=== PATIENT | female | born 1975 | race Caucasian/White ===

== ENCOUNTER 2024-09-15 23:29 | Emergency (ER) | payer MEDICARE, BC, SELFPAY ==
--- NOTE | ~2024-09-15 | CT_ITS ---
CT of the Abdomen and Pelvis: Indication: Umbilical hernia pain Technique: 2.5 mm axial scans were obtained through the abdomen and pelvis following intravenous adm inistration of 100 cc of Omnipaque 350. Dose reduction technique was used on this scan by utilizing a utomated exposure control and iterative reconstruction technique. The dose-length product (DLP) was 1 374.43 mGy-cm. COMPARISON: 06/03/2016 Findings: Scans through the lung bases are unremarkable. 3.5 cm hypodense lesion present in the posterior hepatic lobe, indeterminate, but relatively stable i n size since prior exam. The spleen, pancreas, gallbladder, adrenals and kidneys are within normal li mits. There are atherosclerotic calcifications of the aorta. No lymphadenopathy. No bowel obstruction or bowel wall thickening. There is no evidence to suggest acute appendicitis. Sm all fat-containing umbilical hernia noted. Images through the pelvis were performed. Urinary bladder unremarkable. No pelvic mass seen. Status p ost hysterectomy. No ascites. Impression: 3.5 cm hepatic lesion. Relative stability since 2015 is compatible with benign lesion, possibly heman gioma.. Small fat-containing umbilical hernia. Reviewed, dictated and finalized at location M. Impression: 3.5 cm hepatic lesion. Relative stability since 2015 is compatible with benign lesion, possibly hemangioma.. Small fat-containing umbilical hernia.
[2024-09-15 23:29] VITALS: BP 115/58; PULSE 99; RESP 17; TEMP 36.5; O2SAT 95
--- OUTSIDE RECORDS SUMMARY | 2024-09-15 23:29 | XMS_ITS | Encounter Summary ---
Author Organization [facility] [employer] [facility] [email or web address] [facility] Address [address] [place] [address] Phone Care Team Providers Care Nursing Home Admissions Director Name Role Phone Devika Cummins MD Primary Care Provider [phone] Encounter Details Date Type Department Care Team (Late st Contact Info) Description 04/24/2021 Office Communication [employer] [email or web address] [address] [address] Ben Resendiz DO [address] [place] [phone] Social History Tobacco Use Types Packs/Day Years Used Date Smoking Tobacco: Every Day Cigarettes Smokeless Tobacco: Never Alcohol Use Standard Drinks/Week Comments Never 0 (1 standard drink = 0.6 oz pur e alcohol) Comments Unknown Sex and Gender Information Value Date Recorded Sex Assigned at Not on file Legal Sex Female 10:32 AM EDT Gender Identity Not on file Sexual Orientation Not on file COVID-19 Exposure Response Date Recorded In the last month, have you been in contact with someone who was confirmed or suspected to have Coronavirus / COVID-19? No / Unsure 04/02/2021 1:45 PM EDT documented as of this encounter Miscellaneous Notes * Telephone Encounter - Anni Vasquez CMA - 04/24/2021 2:13 PM CST ok * Telephone Encounter - Ben Resendiz DO - 04/24/2021 2:09 PM CST I will discuss results at the appointment * Telephone Encounter - Anni Vasquez CMA - 04/24/2021 12:17 PM CERTIFIED MEDICAL TECHNICIAN Please call pt about Ultrasound results are in media * Telephone Encounter - Brittany Sanders - 04/24/2021 11:25 AM CST pT called and asked if someone could call her and give her a update about her ultrasound. documented in this encounter Plan of Treatment Upcoming Encounters Date Type Department Care Team (Late st Contact Info) Description 11/01/2024 1:30 PM CDT Office Visit [facility], [facility] [address] [facility] [address] [place] [address] Ben Resendiz DO [address] [address] documented as of this encounter Visit Diagnoses Not on filedocumented in this encounter Care Teams Nursing Home Admissions Director Relationship Specialty Start Date End Date Devika Cummins MD [address] [place] [phone] PCP - General Family Medicine 07/26/24 documented as of this encounter
--- OUTSIDE RECORDS SUMMARY | 2024-09-15 23:29 | XMS_ITS | Clinical Summary ---
Author Organization [facility] Address [facility] [place] [address] Care Team Providers Care Graphic Engineer Name Role Phone Devika Cummins MD Primary Care Provider [phone] Social History Tobacco Use Types Packs/Day Years Used Date Smoking Tobacco: Never Assessed Comments Unknown Sex and Gender Information Value Date Recorded Sex Assigned at Not on file Legal Sex Female 12:31 PM CDT Gender Identity Not on file Sexual Orientation Not on file Plan of Treatment Upcoming Encounters Date Type Department Care Team (Late st Contact Info) Description 10/18/2024 11:00 AM CDT Office Visit [facility] Multispecialty Care - [facility] [address] [facility], [address] [place] [address] Alejandro Paulino MD [address] [place] [address] Health Maintenance Due Date Last Done Comments Cervical Cancer Screening Pa p Smear (Age 30 to 64) Every 3 Years 1977 Colorectal Cancer Screening Colonoscopy (10 Years) 1977 Annual Physical 1980 Hepatitis C 1995 DTaP, Tdap and Td Vaccines ( 1 - Tdap) 1996 Hepatitis B Vaccines (1 of 3 - 19+ 3-dose series) 1996 Cervical Cancer Screening Pa p with HPV Testing (Age 30 to 64) Every 5 Years 2007 Cervical Cancer Screening with HPV 2007 Mammogram Screening 2017 COVID-19 Vaccine (2023-2 5 season) 2024 PHQ-2 (Physician [place]) 06/15/2024 Meningococcal B Vaccine Aged Out No l onger eligible based on patient's age to complete this topic Meningococcal Vaccine Aged Out No william josephine eligible based on patient's age to complete this topic Pneumococcal Vaccine: Pediat rics (0 to 5 Years) and At-Risk Patients (6 to 64 Years) Aged Out No longer eligible b ased on patient's age to complete this topic RSV Immunizations Under 20 Months Aged Out No longer eligible based on patient's age to complete this topic Insurance [facility] Care Teams Graphic Engineer Relationship Specialty Start Date End Date Devika Cummins MD [address] [place] [phone] PCP - General EMERGENCY MEDICINE 05/17/24
--- OUTSIDE RECORDS SUMMARY | 2024-09-15 23:29 | XMS_ITS | Clinical Summary ---
Author Organization [facility] Facility Address [address] [address] Care Team Providers Care Obstetrician And Gynaecologist Name Role Phone Devika Cummins MD Primary Care Provider [phone] Allergies Active Allergy Reactions Criticality Noted Date Comments Aspirin Hives,Swelling,Other (see comments) High 12/11/2016 Penicillins Hives,Itching Low 12/11/2016 Sore throat Medications * This document contains information received from the source organization and may not represent a complete record from that organization. dexamethasone (DECADRON) 1 MG tablet Take 1 tablet (1 mg total) by mouth Once for 1 dose Take night before labs are drawn. 1 tablet 2 Active losartan (COZAAR) 50 MG tablet Take 1 tablet (50 mg total) by mouth every night 90 tablet 1 5 Active chlorthalidone 25 MG tablet Take 0.5 tablets (12.5 mg total) by mouth 1 (one) time each day in the morning 45 tablet 1 5 Active chlorthalidone 25 MG tablet Take 0.5 tablets (12.5 mg total) by mouth 1 (one) time each day in the morning 45 tablet 1 4 08/25/19 25 Discontinu ed(Reorder (does not appear on AVS)) Encounters Date Type Department Care Team Description 08/24/2024 Refill [facility] [address] [place] [address] [address] [place] [address] Anni Vasquez CMA 07/26/2024 1:15 PM PLOW AND BORING MACHINE TENDER Office Visit [facility] [address] [place] [address] [address] [place] [address] Ben Resendiz DO Stage 3 chronic kidney disease, not otherwise specified (HCC) (Primary Dx); Persistent proteinuria; Other Ringsted's syndrome (HCC); Hypertensive chronic kidney disease; Type 2 diabetes mellitus with diabetic chronic kidney disease (HCC); Pure hypercholesterolemia , not otherwise specified; Idiopathic gout, not otherwise specified; H/O: anemia - iron deficient 07/26/2024 Refill [facility] [address] [facility] [address] [place] [phone] Anni Vasquez CMA from Last 3 Months Social History Tobacco Use Types Packs/Day Years [...] on file Sexual Orientation Not on file Last Filed Vital Signs Vital Sign Reading Time Taken Comments Blood Pressure 120/60 07/26/2024 2:00 PM PLOW AND BORING MACHINE TENDER Pulse 61 07/26/2024 2:00 PM PLOW AND BORING MACHINE TENDER Temperature 36.1 C (97 F) 07/26/2024 2:00 PM PLOW AND BORING MACHINE TENDER Respiratory Rate 18 07/26/2024 2:00 PM PLOW AND BORING MACHINE TENDER Oxygen Saturation 97% 07/26/2024 2:00 PM PLOW AND BORING MACHINE TENDER Inhaled Oxygen Concentration - - Weight 105 kg (231 lb 6.4 oz) 07/26/2024 2:00 PM PLOW AND BORING MACHINE TENDER Height 167.6 cm (5' 6 ) 06/18/2021 2:57 PM PLOW AND BORING MACHINE TENDER Body Mass Index 37.35 06/18/2021 2:57 PM PLOW AND BORING MACHINE TENDER Plan of Treatment Upcoming Encounters Date Type Department Care Team (Late st Contact Info) Description 11/01/2024 1:30 PM CDT Office Visit [facility] [address] [facility] [address] [place] [address] Ben Resendiz DO [address] [facility] [address] [place] [address] Health Maintenance Due Date Last Done Comments Pneumococcal Vaccine: Pediat rics (0 to 5 Years) and At-Risk Patients (6 to 64 Years) (1 of 2 - PCV) 1983 Hepatitis B Vaccine (1 of 3 - 19+ 3-dose series) 05/02 Diabetes: Hemoglobin A1C 11/08/2020 Diabetes: Ophthalmology Exam 11/08/2020 Diabetes: Pedal Pulse Checked 11/08/2020 Diabetes: Sensory Foot Exam 11/08/2020 Diabetes: Visual Foot Exam 11/08/2020 Influenza Vaccine (#1) 2024 Insurance MEDICAID [place] UHC MEDICARE Care Teams Obstetrician And Gynaecologist Relationship Specialty Start Date End Date Placido, Devika Parker MD [address] [place] [phone] PCP - General Family Medicine 07/26/24
--- OUTSIDE RECORDS SUMMARY | 2024-09-15 23:29 | XMS_ITS | CONTINUITY OF CARE DOCUMENT ---
Author Name zahraa vital Address Unknown Organization [facility] Address [address] [facility] [address] [place] [address] Phone [phone] Care Team Providers Care Die Press Operator Name Role Phone Mandeep VILLANUEVA, Maria Luisa Unavailable HOPMARGO BENNETT Unavailable [phone] HOPMARGO BNENETT Unavailable [phone] PROBLEMS Condition Status Date Provider Notes HTN essential active Maria Luisa Kaufman MD Diabetes mellitus active Maria Luisa Kaufman MD Morbid obesity active Maria Luisa Kaufman MD Hyperlipidemia active Maria Luisa Kaufman MD Preoperative cardiovascular examination for bariatriac surgery active Maria Luisa Kaufman MD GERD active Maria Luisa Kaufman MD Smoker active Maria Luisa Kaufman MD Bipolar disorder active Maria Luisa Kaufman MD Sleep apnea active Maria Luisa Kaufman MD PAC's active Yuli Kirby PVC's active Yuli Kirby Wheezing active Yuli Kirby Palpitations active Yuli Kirby Shortness of breath active Yuli Kirby SVT active Yuli Kirby ENCOUNTERS Date Type Provider Location Encounter Diag nosis 3 - 7 In-person encounter Office Visit Devyn Garza MD [facility] 4 - 4 In-person encounter Office Visit Devyn Garza MD [facility] PAC'sPVC'sWheezingPalpitationsShortne ss of breathSVT 7 - 7 In-person encounter Office Visit Maria Luisa Kaufman MD [facility] HTN essentialDiabetes mellitusMorbid obesityHyperlipidemiaPreoperative cardiovascular examination for bariatriac surgeryGERDSmokerBipolar disorderSleep apnea VITAL SIGNS Date Observation Value Provider Body Mass Index (Ratio) 39.22 kg/m2 Taew on blood pressure, cuff size large Ke rri Gruenenfelder blood pressure, diastolic 80 mm[Hg] [facility], systolic 138 mm[Hg] Zabrina ri [facility] oxygen saturation, oximetry 93 % Suri [facility] respiratory rate E&M 16 /min Suri Leslie [facility] pulse rate 96 /min Suri Kalyanitor er weight E&M 243 [lb_av] Suri Evelynnenfe lder height E&M 66 [in_i] Suri Grnathennenfe lder Body Mass Index (Ratio) 40.51 kg/m2 Taew on blood pressure, resting No Dany ty [place] blood pressure, cuff size regular Kr isty Christa blood pressure, diastolic 80 mm[Hg] Kr isty [place] blood pressure, systolic 130 mm[Hg] Kri sty Christa pulse rate 104 /min Shantell [place] oxygen saturation, oximetry 96 % Shantell Chrisat respiratory rate E&M 19 /min Shantell Christa height E&M 66 [in_i] Shantell Christa weight E&M 251 [lb_av] Shantell [place] Body Mass Index (Ratio) 41.10 kg/m2 Saran Kaufman MD respiratory rate E&M 16 /min [facility] blood pressure, resting Yes [facility] blood pressure, diastolic 100 mm[Hg] To [facility] blood pressure, systolic 168 mm[Hg] Ton [facility] oxygen saturation, oximetry 97 % [facility] pulse rate 85 /min [facility] weight E&M 247 [lb_av] [facility] height E&M 65 [in_i] [facility] ALLERGIES Allergy Name Onset Date Reaction Criticality Status PENICILLIN Low Criticality active ASPIRIN throat swelling throat swelling Low Criticality active HISTORY OF MEDICATION USE Medication Status Instructions Dates Provider Indications Com ments Cozaar 100 mg tablet active TAKE 1 TABLET BY MOUTH ONCE DAILY Allie Torrez NP atorvastatin 80 mg tablet active Take 1 tablet by mouth at bedtime Allie Torrez NP Zetia 10 mg tablet completed TAKE 1 TABLET BY MOUTH EVERY DAY - Allie Torrez NP ergocalciferol (vitamin D2) 1,250 mcg (50,000 unit) capsule active Take 1 capsule by mouth once a week Allie Torrez NP magnesium oxide 400 mg (241.3 mg magnesium) tablet active Take 1 tablet by mouth once a day Shantell Goodwin #30, 30 days supply, Prescribed by PERLA BONILLA, Filled 10/07/2020 FeroSul 325 mg (65 mg iron) tablet active Take 1 tablet by mouth twice a day Shantell Goodwin #60, 30 days supply, Prescribed by PERLA BONILLA, Filled 10/07/2020 cyclobenzaprine 10 mg tablet active Suri Quintero glipizide 5 mg tablet active Suri Quintero estradiol 2 mg tablet active Suri Quintero fluticasone propionate 50 mcg/actuation spray,suspension active Suri Quintero Singulair 10 mg tablet active Suri Quintero gabapentin 600 mg tablet active Suri Quintero pantoprazole 40 mg tablet,delayed release (DR/EC) active Suri Guardadodukeeddie allopurinol 100 mg tablet active Suri Augusteblakeeddie gemfibrozil 600 mg tablet active Suri Rivasdelorisrhona atorvastatin 10 mg tablet completed - Allie Torrez NP Latuda 60 mg tablet active Suri Guardadodukeeddie lamotrigine 200 mg tablet active Suri Guardadodukeeddie RANITIDINE 150 MAX STRENGTH 150 MG ORAL TABLET active Suri Guardadodukeeddie metformin 1,000 mg tablet active Suri Guardadodukeeddie glyburide 5 mg tablet active Suri Guardadodukeeddie SOCIAL HISTORY Date Observation Value Provider smoking/tobacco cess ation, patient education and counseling yes Suri Guardadomarvin smoking, date started 1988 Suri Guardadomarvin smoking history, tot al pack/year 365 Suri Dodgerhona smoking history, tot al pack/day 1 Suri Dodgerhona cigarette use yes Suri rodriguez smoking status Current every day smoker Otf napoles Leon number of grandchildren Devyn Kirby social history E&M S moking History: Brionna garcía currently smokes every day. P ricky has been counseled to quit. Yuli Kirby social history reviewed E&M revi ewed - no changes required Yuli Kirby smoking/tobacco cess ation, patient education and counseling yes Shantell Goodwin smoking, date started 1988 Shantell Christa smoking history, tot al pack/year 365 Shantell [place] smoking history, tot al pack/day 1 Shantell [place] cigarette use yes Shantell Goodwin smoking status Current every day smoker tOf Goodwin number of grandchildren Maria Luisa Kaufman MD T teodoro Kaufman MD social history E&M S moking History: Brionna garcía currently smokes every day. P ricky has been counseled to quit. Maria Luisa Kaufman MD smoking/tobacco cess ation, patient education and counseling yes Maria Luisa Kaufman MD social history reviewed E&M revi ewed - no changes required Maria Luisa Kaufman MD smoking history, tot al pack/year 365 [facility] smoking history, tot al pack/day 1 [facility] smoking, date started 1988 [facility] cigarette use yes [facility] smoking status Current every day smoker T [facility] FAMILY HISTORY Family Member Condition Mother Family History of Di abetes: Mother Family History of De pression: INSURANCE PROVIDERS Payer name Policy type / Coverage type [place] red green party ID UHC MEDICARE COMPLETE HMO Other [id number] [facility] Medicaid 1 [id number] ADVANCE DIRECTIVES Name Date DISCUSSED - NO DECISION MADE TREATMENT PLAN Date Name Performer [id number],W,per PCP; A1C 7.8% Allie Torrez NP [id number],S,T he Patient was reencouraged to stop smoking. Allie Torrez NP [id number],S,weight loss e ncouraged. Allie Torrez NP [id number],S,Losartan 100 mg daily Allie Torrez NP [id number],B, Allie nguyen NP [id number],S, T he following medications were removed from the medication list: Atorvastatin 10 Mg Tablet (Atorvastatin) Her updated medication list for this problem includes: Atorvastatin 80 Mg Tablet (Atorvastatin) ..... Take 1 tablet by mouth at bedtime Zetia 10 Mg Tablet (Ezetimibe) ..... Take 1 tablet by mouth every day Gemfibrozil 600 Mg Tablet (Gemfibrozil) Allie Torrez NP [id number],S,holter monito r unremarkable Allie Torrez NP Electrophysiology:per PCP; A1C 7 .8% Allie Torrez NP Electrophysiology:Th e Patient was reencouraged to stop smoking. Allie Torrez NP Electrophysiology:weight loss en couraged. Allie Torrez NP Electrophysiology:Losartan 100 m g daily Allie Torrez NP Electrophysiology Allie dixon GETTER WELDER Electrophysiology: T he following medications were removed from the medication list: Atorvastatin 10 Mg Tablet (Atorvastatin) Her updated medication list for this problem includes: Atorvastatin 80 Mg Tablet (Atorvastatin) ..... Take 1 tablet by mouth at bedtime Zetia 10 Mg Tablet (Ezetimibe) ..... Take 1 tablet by mouth every day Gemfibrozil 600 Mg Tablet (Gemfibrozil) Allie Torrez NP Electrophysiology:holter monitor unremarkable Allie Torrez NP Electrophysiology 14 : B P today: 130/80 P rior BP: 168/100 (07/11/2019) Yuli Kirby Electrophysiology 14 :SHE SHOULD NOT BE DOING ANY STRESS TEST UNTIL HER ANEMIA IS WORKED UP IT WOULD BE TOO DANGEROUS. Yuli Kirby Electrophysiology 14 : O rders: T obacco cessation counseling, 3-10minutes ([id number]) F VC - 40470 (54646) F RC - 49215 (13208) D LCO - 32700 (14246) Yuli Kirby Electrophysiology 14 :The patient is using CPAP on a regular basis. The patient has been benefiting from therapy and should continue use. Yuli Kirby Electrophysiology 14 : O rders: F VC - 00270 (86992) F RC - 06785 (65067) D LCO - 58128 (65119) Yuli Kirby Electrophysiology 14 : O rders: M onitor - Telemetry (Mobile Cardiac) (CPT-[id number]) Yuli Kirby Electrophysiology 14 : O rders: M onitor - Telemetry (Mobile Cardiac) (CPT-[id number]) Yuli Kofi Electrophysiology 14 : O rders: M onitor - Telemetry (Mobile Cardiac) (CPT-[id number]) Yuli Kirby Cardiology Maria Luisa Kaufman MD Cardiology Maria Luisa Kaufman MD Cardiology Maria Luisa Kaufman MD Cardiology Maria Luisa Kaufman MD Cardiology:Will obta in stress cardiolite before giving clearance for bariatric surgery. Maria Luisa Kaufman MD Cardiology Maria Luisa Kaufman MD Date Name LIPASE AMYLASE LIPID PANEL COMPREHENSIVE METABO LIC PANEL, W/EGFR Monitor - Telemetry (Mobile Cardiac) DLCO - 41831 FRC - 76407 FVC - 73444 Complete Echo Stress Exercise Card iolite HISTORY OF PROCEDURES Procedure Date Procedure Name Provider Procedure Notes S tatus EKG Devyn Garza MD comp leted Mobile Cardiac Telemetry - Tech Devyn Garza MD completed Mobile Cardiac Telemetry - Prof Devyn Garza MD completed EKG Devyn Garza MD comp leted Cardiolite, 2 units Maria Luisa Kaufman MD completed SPECT Images Maria Luisa Kaufman MD complet ed Stress EKG Maria Luisa Kaufman MD completed EKG Maria Luisa Kaufman MD completed
--- OUTSIDE RECORDS SUMMARY | 2024-09-15 23:29 | XMS_ITS | Clinical Summary ---
Author Organization [facility] Address [address] [place] [address] Care Team Providers Care Fruit Loader Name Role Phone Provider, Abstract Primary Care Provider Unavail able Allergies Active Allergy Reactions Criticality Noted Date Comments Aspirin Hives,Swelling High 11/20/2020 Penicillins Itching Low 11/20/2020 Sore throat Medications FeroSuL 325 mg (65 mg iron) tablet TAKE 1 TABLET BY MOUTH TWICE DAILY 1 Active cyclobenzaprine (FLEXERIL) 10 mg tablet Take by mouth. 0 Active gabapentin (NEURONTIN) 600 mg tablet Take by mouth. 0 Active gemfibroziL (LOPID) 600 mg tablet Take by mouth. 0 Active fluticasone propionate (FLONASE) 50 mcg/spray [facility], Suspension nasal inhaler Administer in each nostril. 0 Active estradioL (ESTRACE) 2 mg tablet Take by mouth. 0 Active allopurinoL (ZYLOPRIM) 100 mg tablet Take by mouth. 0 Active atorvastatin (LIPITOR) 10 mg tablet Take by mouth. 0 Active raNITIdine (ZANTAC) 150 mg tablet Take by mouth. 0 Active Active Problems Problem Noted Date Diagnosed Date Iron deficiency anemia 11/20/2020 Family History Medical History Relation Name Comments Cancer Father Diabetes Father Heart Disease Father Relation Name Status Comments Brother Alive Father Mother Alive Sister Alive Social History Tobacco Use Types Packs/Day Years Used Date Smoking Tobacco: Some Days Cigarettes Smokeless Tobacco: Never Comments:social smoker Alcohol Use Standard Drinks/Week Comments Never 0 (1 standard drink = 0.6 oz pur e alcohol) Comments Unknown Sex and Gender Information Value Date Recorded Sex Assigned at Not on file Legal Sex Female 1:52 PM CDT Gender Identity Not on file Sexual Orientation Not on file Last Filed Vital Signs Vital Sign Reading Time Taken Comments Blood Pressure 131/78 11/20/2020 1:08 PM CDT Pulse 91 11/20/2020 1:08 PM CDT Temperature 36.7 C (98.1 F) 11/20/2020 1:08 PM CDT Respiratory Rate - - Oxygen Saturation 96% 11/20/2020 1:08 PM CDT Inhaled Oxygen Concentration - - Weight 113 kg (249 lb 1.6 oz) 11/20/2020 1:08 PM CDT Height 167.6 cm (5' 6 ) 11/20/2020 1:08 PM CDT Body Mass Index 40.21 11/20/2020 1:08 PM CDT Plan of Treatment Health Maintenance Due Date Last Done Comments DIABETES ANNUAL FOOT EXAM 1995 DIABETES ANNUAL RETINAL EXAM 1995 DIABETES MICROALBUMIN ANNUAL SCREEN 1995 LDL CHOLESTEROL ANNUAL 1995 DTAP/TDAP/TD VACCINES (1 - Tdap) 1996 HEPATITIS B VACCINES (1 of 3 - 19+ 3-dose series) 1996 HPV/Cotest (21-29) 1998 PAP SMEAR 1998 CERVICAL CANCER SCREENING 2007 HPV/Cotest (30-65) 2007 PAP SMEAR 2007 DIABETES HBA1C Q 6 MONTHS 04/17/20222021, 08/02/2021, 05/14/2021, Additional history exists FIT-DNA Q 3 years 2022 FIT/FOBT Q 1 year 2022 Flex Sig/CT Colonography Q 5 years 2022 BREAST CANCER SCREENING 06/11/2022 06/11/20 21, 06/11/2021, 10/19/2017, Additional history exists INFLUENZA VACCINE (#1) 2024 COLORECTAL SCREENING 12/31/2030 12/31/2020, 03/22/20 19 Colorectal Cancer Screening 12/31/2030 Insurance MEDICAID [place] MEDICARE PART A AND B Care Teams Fruit Loader Relationship Specialty Start Date End Date Provider, Abstract NO ADDRESS ON FILE PCP - General 11/20/20
--- OUTSIDE RECORDS SUMMARY | 2024-09-15 23:30 | XMS_ITS | Clinical Summary ---
Author Organization [facility] [employer] Address [address] [place] [address] Care Team Providers Care Sand Screener Operator Name Role Phone Devika Cummins MD Primary Care Provider [phone] Source Comments [facility] [employer],non-owned Affiliates and Associated Physician Practices is amultiple site organization consisting of ambulatory clinics and hospital sitesin [place], [place], [place] and [place]. This disclosure is being madepursuant to the Care Everywhere program and may not contain all information available regarding this patient. Last updated 18.[facility] [employer] Allergies Active Allergy Reactions Criticality Noted Date Comments Aspirin 12/11/2016 Penicillins 12/11/2016 Medications * Be aware that medications may not be up to date on this document. Alwaysverify current medications with the patient. Medication Sig Dispensed Refills Start Date End Date Status sertraline (ZOLOFT) 100 MG tablet Take 100 mg by mouth once daily Active ESTRADIOL PO Active clonazePAM, disintegrating, 0.5 MG Active lurasidone (LATUDA) 60 MG tablet Take 60 mg by mouth daily with breakfast Active metFORMIN CR 24hr modified (GLUMETZA) 500 MG (MOD) tablet Take 500 mg by mouth daily with dinner Active raNITIdine (ZANTAC) 150 MG tablet Take 150 mg by mouth 2 times daily Active lamoTRIgine (LAMICTAL) 200 MG tablet Take 200 mg by mouth 2 times daily Active gabapentin PHN (GRALISE) 600 MG tablet Take 600 mg by mouth daily with dinner Active Active Problems No known active problems Encounters Date Type Department Care Team Description 08/24/2024 Travel from Last 3 Months Social History Tobacco Use Types Packs/Day Years Used Date Smoking Tobacco: Every Day Smokeless Tobacco: Never Sex and Gender Information Value Date Recorded Sex Assigned at Not on file Gender Identity Not on file Sexual Orientation Not on file Last Filed Vital Signs Vital Sign Reading Time Taken Comments Blood Pressure 126/74 12/11/2016 2:39 PM CDT Pulse 84 12/11/2016 2:39 PM CDT Temperature 37.1 C (98.7 F) 12/11/2016 2:39 PM CDT Respiratory Rate 18 12/11/2016 2:39 PM CDT Oxygen Saturation 94% 12/11/2016 2:39 PM CDT Inhaled Oxygen Concentration - - Weight 106.6 kg (235 lb) 12/11/2016 2:39 PM CDT Height 167.6 cm (5' 6 ) 12/11/2016 2:39 PM CDT Body Mass Index 37.93 12/11/2016 2:39 PM CDT Plan of Treatment Upcoming Encounters Date Type Department Care Team (Late st Contact Info) Description 12/05/2024 2:40 PM CDT Office Visit [facility] - Endocrinology [address] [place] [address], [place] [address] Sohail Blount MD [address] [place] [address] [place] [phone] Health Maintenance Due Date Last Done Comments COLOGUARD (AGES 45-75) - COL ON CA SCREENING 1977 COLON MONITORING 1977 COLONOSCOPY - COLON CA SCREENING 1977 CT COLONOGRAPHY - COLON CA SCREENING 1977 Colorectal Cancer Screening 1977 FIT - COLON CA SCREENING 1977 FLEX SIG - COLON CA SCREENING 1977 LIPID TESTING 1977 MAMMOGRAM 1977 PAP SMEAR 1977 HIV SCREENING 1992 HEPATITIS C SCREENING 04/28/1995 DTAP/TDAP/TD VACCINES (1 - Tdap) 1996 HEPATITIS B VACCINE (1 of 3 - 19+ 3-dose series) 1996 PNEUMOCOCCAL VACCINE (1 of 2 - PCV) 1996 COVID-19 VACCINE (2023-2 5 season) 2024 INFLUENZA VACCINE (#1) 2024 DEPRESSION SCREENING 06/15/2024 MEDICARE AWV CALENDAR YEAR 2024 ZOSTER VACCINE (1 of 2) 2027 HIB VACCINE Aged Out No longer eligi ble based on patient's age to complete this topic HPV VACCINE Aged Out No longer eligi ble based on patient's age to complete this topic MENINGOCOCCAL (Group B) VACC INE SHARED DECISION-MAKING Aged Out No longer eligibl e based on patient's age to complete this topic MENINGOCOCCAL GROUPS A/C/Y/W VACCINE Aged Out No longer eligible b ased on patient's age to complete this topic Care Teams Sand Screener Operator Relationship Specialty Start Date End Date Devika Cummins MD [address] [place] [address] PCP - General Emergency Medicine 01/04/24
--- OUTSIDE RECORDS SUMMARY | 2024-09-15 23:30 | XMS_ITS | Clinical Summary ---
Author Organization [facility] Address [address] [place] [address] Care Team Providers Care Commissions Specialist Name Role Phone Zbigniew Marie MD Primary Care Provider [phone] Allergies Active Allergy Reactions Criticality Noted Date Comments Aspirin Hives,Other (See comments),Swelling High 12/11/2016 Penicillins Hives,Itching Medium 12/11/2016 Sore throat Sore throat Medications losartan (COZAAR) 100 mg tablet losartan 100 mg tablet 06/15/18 70 Active dapagliflozin (FARXIGA) 10 mg tablet Farxiga 10 mg tablet Active glimepiride (AMARYL) 4 mg tablet glimepiride 4 mg tablet Active pantoprazole DR (PROTONIX) 40 mg EC tablet pantoprazole 40 mg tablet,delayed release 07/11/19 20 Active metFORMIN (GLUCOPHAGE) 1,000 mg tablet BID 07/11/19 20 Active ezetimibe (ZETIA) 10 mg tablet ezetimibe 10 mg tablet Active SITagliptin phosphate (JANUVIA) 100 mg tablet Januvia 100 mg tablet Active ergocalciferol (VITAMIN D) 50,000 unit capsule ergocalciferol (vitamin D2) 1,250 mcg (50,000 unit) capsule Take 1 capsule weekly 06/15/18 70 Active allopurinoL (ZYLOPRIM) 100 mg tablet allopurinol 100 mg tablet 07/11/19 20 Active montelukast (SINGULAIR) 10 mg tablet montelukast 10 mg tablet 07/11/19 20 Active atorvastatin (LIPITOR) 80 mg tablet atorvastatin 80 mg tablet 05/17/20 21 Active gabapentin (NEURONTIN) 300 mg capsule BID Activ e colchicine (COLCRYS) 0.6 mg tablet colchicine 0.6 mg tablet Active cyanocobalamin (Vitamin B-12) 1,000 mcg tablet daily 09/21/19 22 Active budesonide-for moteroL (SYMBICORT) 160-4.5 mcg/actuation inhaler Symbicort 160 mcg-4.5 mcg/actuation HFA aerosol inhaler Active ferrous sulfate 325 mg (65 mg of elemental iron) tablet ferrous sulfate 325 mg (65 mg iron) tablet Take 1 PO DAILY 10/08/19 21 Active lamoTRIgine (LaMICtal) 200 mg tablet BID 07/11/19 20 Active lurasidone (LATUDA) 40 mg tablet Latuda 40 mg tablet Active sertraline (ZOLOFT) 100 mg tablet BID Active traZODone (DESYREL) 100 mg tablet trazodone 100 mg tablet Active fenofibrate micronized (LOFIBRA) 134 mg capsule fenofibrate micronized 134 mg capsule Active cyclobenzaprin e (FLEXERIL) 10 mg tablet cyclobenzaprine 10 mg tablet 07/11/19 20 Active albuterol HFA (PROVENTIL HFA,VENTOLIN HFA,PROAIR HFA) 90 mcg/actuation inhaler albuterol sulfate HFA 90 mcg/actuation aerosol inhaler Active levETIRAcetam (KEPPRA) 1,000 mg tabletIndicati ons:Jerky body movements TAKE 1 TABLET BY MOUTH TWICE A DAY 60 tablet 3 11/22/19 23 Active meloxicam (MOBIC) 7.5 mg tablet TAKE 1 TABLET BY MOUTH DAILY 28 tablet 02/13/20 23 Active Active Problems Problem Noted Date Diagnosed Date Jerky body movements 07/30/2022 Chronic bilateral low back pain with sciatica Surgical History Surgery Date Site/Laterality Comments HYSTERECTOMY Medical History Medical History Date Comments Migraine Headache, tension-type Anemia COPD (chronic obstructive pulmonary disease) (HC C) NAFLD (nonalcoholic fatty liver disease) Ovarian cancer (HCC) Bipolar disorder (HCC) Family History Medical History Relation Name Comments Lung cancer Father Migraines Father Stroke Father Diabetes Mother Relation Name Status Comments Father Mother Social History Tobacco Use Types Packs/Day Years Used Date Smoking Tobacco: Never Tobacco Cessation:Counseling Given: Not Answered Personal Safety Answer Date Recorded Getting School Help Needed Not on file 07/07 Comments Unknown Sex and Gender Information Value Date Recorded Sex Assigned at Not on file 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[employer] Gender Identity Not on file Sexual Orientation Not on file Obstetrics History Last Filed Vital Signs Vital Sign Reading Time Taken Comments Blood Pressure 150/84 09/10/2022 2:30 PM CDT Pulse 87 09/10/2022 2:30 PM CDT Temperature - - Respiratory Rate - - Oxygen Saturation 90% 09/10/2022 2:30 PM CDT Inhaled Oxygen Concentration - - Weight 113.9 kg (251 lb) 09/10/2022 2:30 PM CDT Height 167.6 cm (5' 5.98 ) 09/10/2022 2:30 PM CD T Body Mass Index 40.53 09/10/2022 2:30 PM CDT Plan of Treatment Health Maintenance Due Date Last Done Comments Colon Cancer Screening-Colonoscopy 1977 Depression Screening 1977 Hepatitis C Screening 1977 DTaP/Tdap/Td Vaccine (1 - Tdap) 1988 Hepatitis B Screening 1995 Regular Well Visit/Exam 18-64 1995 Pneumococcal vaccine <65 (1 of 2 - PCV) 1996 Breast Cancer Screening-Mammogram 06/11/2022 021 Influenza Vaccine (#1) 2024 04/24/2020, [address] [place] [address] IDPA [employer] [facility] IDPA [facility] MEDICARE [employer] Address: [address] [address] [place] [address] [place] [address] Care Teams Commissions Specialist Relationship Specialty Start Date End Date Zbigniew Marie MD [address] [place] [id number] PCP - General Internal Medicine 07/30/22
--- OUTSIDE RECORDS SUMMARY | 2024-09-15 23:30 | XMS_ITS | Referral Summary ---
Author Organization [facility] Address [address] [place] [address] Care Team Providers Care Paring Machine Operator Name Role Phone Zbigniew Marie MD Primary Care Provider [phone] Allergies Active Allergy Reactions Criticality Noted Date [...] Chronic bilateral low back pain with sciatica Social History Tobacco Use Types Packs/Day Years Used Date Smoking Tobacco: Never Tobacco Cessation:Counseling Given: Not Answered Personal Safety Answer Date Recorded Getting School Help Needed Not on file 07/07 Comments Unknown Sex and Gender Information Value Date Recorded Sex Assigned at Not on file Legal Sex Female 9:05 AM S[employer] Gender Identity Not on file Sexual Orientation [...] 09/10/2022 2:30 PM CDT Plan of Treatment Not on file Insurance [place] [address] IDPA [facility] [place] [address] Care Teams Paring Machine Operator Relationship Specialty Start Date End Date Zbigniew Marie MD [address] [place] [id number] PCP - General Internal Medicine 07/30/22
--- OUTSIDE RECORDS SUMMARY | 2024-09-15 23:30 | XMS_ITS | Data Portability ---
Author Organization [facility], Main Office Address [address] [place] [address] Care Team Providers Care Graphic Production Artist Name Role Phone SHITAL BAUTISTA Primary Care Provider SHITAL BAUTISTA Referring Provider SHITAL BAUTISTA Primary Care Provider Assessment Encounter Date Assessment Date Assessment LastModified by Organization Details LastModified Time 06/23/2023 06/23/2023 This note is dictated and transcribed by [employer] Fluency Direct Software. School Year Nanny variances may occur. Despite proofreading, typographical errors may occur. Occasional wrong-word or '[id number]' substitutions may have occurred due to the inherent limitations of voice recording. Read the chart carefully and recognize, using context, where substitutions have occurred. [email or web address] Not available 06/30/2023 12:16:42 08/27/2023 08/27/2023 Assessment: Ex-nicotine smoke: / ppd [id number] = 13.5 pack years Mod ACO Severe OSAHS, AHI = 41 B12 deficiency Anemia Hypogammaglobuline epifanio (IgG2) Plan: The following were reviewed and explained to the patient: night 1 sleep study 01/01/15 AHI = 41 night 2 sleep study 01/04/15 2-D echocardiogram 08/17/19 EF 60% ESR 12/06/20 30 mm/hr B12 12/06/20 266 pg/ml B12 05/14/21 334 pg/mL B12 06/10/21 308 pg/mL B12 03/21/22 411 pg/mL B12 05/26/23 276 pg/mL B12 08/19/23 692 pg/mL Hgb 12/06/20 11.9 gm% Lab data 12/06/20 low IgG2, allergic to cockroach PFT 11/23/17 FEV1 1.61 L (54%), (+) BD response PFT 04/12/21 FEV1 1.66 L (56%), (+) BD response PFT 03/21/22 FEV1 1.75 L (61%) PFT 04/13/23 FEV1 2.04 L (70%) For her PLMD, BUN, Creatinine, Vitamin E, RBC folate, Iron, TIBC, Ferritin, ESR, Magnesium, Hgb and Hct levels are within normal limits. Patient will continue B12 1 mg daily to keep the levels > 400 pg/ml. We will hold off on dopaminergic therapy for now. Patient will cut down on nicotine use and caffeine intake. PAP compliance downloaded and interpreted x 20 minutes. Data reviewed and explained to the patient. Average apnea/hypopnea index (AHI) is 0.1. Patient used PAP > 4 hours 79% of the time. PAP is set at 12-15 cmH2O. PAP will remain at 12-15 cmH2O. Oxygen supplementation: none Patient is benefiting from PAP therapy. Encouraged patient to maintain PAP use more than 70% of the time. Statement of PAP use and benefits will be sent to the home care store. Educated the patient on problems and solutions associated with positive airway pressure (PAP) use. Difficulty tolerating pressure, mask leaks, intolerance of interface, nasal congestion, claustrophobic response, dry mouth, and unintentional mask removal during sleep were covered. Patient experiences claustrophobic response. Patient will practice wearing PAP mask daily while awake and undergo PAP desensitization. We will check fit of patient's mask and provide a sleeker alternative as necessary. A major predictor of success with use of PAP is follow-up with both the respiratory supplier and the treating physician. The download results can show the treating physician information about adherence to treatment, residual AHI while on treatment and presence of large mask leakage. This information is especially helpful if the patient has residual sleepiness despite treatment. Patient may need gammaglobulin infusions during times of infection. Continue Symbicort 160/4.5 mcg 2 puffs BID, not 2 puffs once a day. Gargle after use. Continue albuterol HFA as needed. The patient does not know how to accurately administer the inhalers. Today, the patient was shown how to take these medications. The proper technique for delivering these medications was instructed. The patient expressed a clear understanding and demonstrated back how to use these medications. Without the proper technique, the patient will not reap the benefits of these medications as the contents will not reach the lower airways as intended to be. Adherence to therapy is advocated. Nonadherence may lead to treatment failure, further progression of the condition, and other complications. Hospitals admissions are often the result of individuals not taking prescription medications accurately. Alternatively, greater adherence to medication regimens have shown to lower rates of hospitalization and decrease total medical costs in patients with chronic medical conditions. Advocated influenza vaccination annually and pneumonia vaccination DOMINIQUE. Advocated weight loss through diet and exercise. Patient's ideal body weight according to height and gender is up to 140 lbs. Encouraged patient to adjust caloric intake to maintain/achieve ideal body weight, emphasizing on fruits, vegetables, whole grains, and fat-free or low-fat products. These include lean meats, poultry, fish, beans, eggs, and nuts and foods that are low in saturated fats, trans-fats, cholesterol, salt (sodium), and glycemic index. Stressed the importance of regular exercise up to the patient's capacity limits. In this case, we recommend 20 min daily walking, 2 days a week of resistance training. Patient to monitor BP daily and bring records to PCP for further management. Follow-up: 9 months, May 2024 [email or web address] Not available 08/27/2023 14:23:57 05/25/2024 05/25/2024 Assessment: Ex-nicotine smoke: 06/16 ppd [id number] = 13.5 pack years Mod ACO Severe OSAHS, AHI = 41 B12 deficiency Anemia Hypogammaglobuline epifanio (IgG2) Plan: The following were reviewed and explained to the patient: night 1 sleep study 01/01/15 AHI = 41 night 2 sleep study 01/04/15 2-D echocardiogram 08/17/19 EF 60% ESR 12/06/20 30 mm/hr Hgb 12/06/20 11.9 gm% Lab data 12/06/20 low IgG2, allergic to cockroach B12 12/06/20 266 pg/ml B12 05/14/21 334 pg/mL B12 06/10/21 308 pg/mL B12 03/21/22 411 pg/mL B12 05/26/23 276 pg/mL B12 08/19/23 692 pg/mL B12 04/22/24 378 pg/mL PFT 11/23/17 FEV1 1.61 L (54%), (+) BD response PFT 04/12/21 FEV1 1.66 L (56%), (+) BD response PFT 03/21/22 FEV1 1.75 L (61%) PFT 04/13/23 FEV1 2.04 L (70%) For her PLMD, BUN, Creatinine, Vitamin E, RBC folate, Iron, TIBC, Ferritin, ESR, Magnesium, Hgb and Hct levels are within normal limits. Patient will continue B12 1 mg but increase from twice weekly to every other day to keep the levels > 400 pg/ml. We will hold off on dopaminergic therapy for now. Patient will cut down on nicotine use and caffeine intake. PAP compliance downloaded and interpreted x 20 minutes. Data reviewed and explained to the patient. Average apnea/hypopnea index (AHI) is 0.2. Patient used PAP > 4 hours 99% of the time. PAP is set at 12-15 cmH2O. PAP will remain at 12-15 cmH2O. Keep EPR +1 second time worker. Keep ramp off. Keep humidifier level at automatic mode. Keep tube temperature at automatic mode. Oxygen supplementation: none Patient is benefiting from PAP therapy. Encouraged patient to maintain PAP use more than 70% of the time. Statement of PAP use and benefits will be sent to the home care store. Educated the patient on problems and solutions associated with positive airway pressure (PAP) use. Difficulty tolerating pressure, mask leaks, intolerance of interface, nasal congestion, claustrophobic response, dry mouth, and unintentional mask removal during sleep were covered. Patient experiences claustrophobic response. Patient will practice wearing PAP mask daily while awake and undergo PAP desensitization. We will check fit of patient's mask and provide a sleeker alternative as necessary. A major predictor of success with use of PAP is follow-up with both the respiratory supplier and the treating physician. The download results can show the treating physician information about adherence to treatment, residual AHI while on treatment and presence of large mask leakage. This information is especially helpful if the patient has residual sleepiness despite treatment. Patient may need gammaglobulin infusions during times of infection. Continue Advair HFA 230/21 mcg 2 puffs BID, not 2 puffs once a day. Gargle after use. Continue albuterol HFA as needed. The patient does not know how to accurately administer the inhalers. Today, the patient was shown how to take these medications. The proper technique for delivering these medications was instructed. The patient expressed a clear understanding and demonstrated back how to use these medications. Without the proper technique, the patient will not reap the benefits of these medications as the contents will not reach the lower airways as intended to be. Adherence to therapy is advocated. Nonadherence may lead to treatment failure, further progression of the condition, and other complications. Hospitals admissions are often the result of individuals not taking prescription medications accurately. Alternatively, greater adherence to medication regimens have shown to lower rates of hospitalization and decrease total medical costs in patients with chronic medical conditions. Advocated influenza vaccination annually and pneumonia vaccination DOMINIQUE. Advocated weight loss through diet and exercise. Patient's ideal body weight according to height and gender is up to 140 lbs. Encouraged patient to adjust caloric intake to maintain/achieve ideal body weight, emphasizing on fruits, vegetables, whole grains, and fat-free or low-fat products. These include lean meats, poultry, fish, beans, eggs, and nuts and foods that are low in saturated fats, trans-fats, cholesterol, salt (sodium), and glycemic index. Stressed the importance of regular exercise up to the patient's capacity limits. In this case, we recommend 20 min daily walking, 2 days a week of resistance training. Patient to monitor BP daily and bring records to PCP for further management. Follow-up: 9 months, February 2025 [facility] Not available 05/25/2024 15:20:00 Plan of Treatment Reminders Order Date Submit Date Provider Last Modified By Organization Details Last Modified Time Details Appointments Follow Up 2024 01:00P Elena De Luna MD Not available Not available Not available Lab vitamin B12, serum 2023 025 [email or web address] [facility] (Lab), [address] [place], [address], 05/25/2024 15:18:05 vitamin B12, serum [email or web address] [place] [address] (Lab), [address] [place], [address], 05/11/2024 10:04:42 Referral None recorded. Procedures None recorded. Surgeries None recorded. Imaging XR, foot, 3 or more view [address] ([facility]), [address], [place], [address], 07/27/2023 08:32:39 Medication Orders cyanocoba nusrat (vit B-12) 1,000 mcg tablet 2023 024 [facility], [address] [place] [address] , [address], [place], [place], [id number], 05/25/2024 15:18:17 albuterol sulfate HFA 90 mcg/actua tion aerosol inhaler 2023 024 [facility], [address] [place] [address] , [address], [place], [place], [id number], 05/25/2024 15:18:16 Advair HFA 230 mcg-21 mcg/actua tion aerosol inhaler 2023 024 [facility], [address] [place] [address] , [address], [place], [place], [id number], 05/25/2024 15:18:19 cyanocoba nusrat (vit B-12) 1,000 mcg tablet 2023 024 [facility], [address] [place] [address] , [address], [place], [place], [id number], 08/27/2023 14:28:47 albuterol sulfate HFA 90 mcg/actua tion aerosol inhaler 2023 024 [facility], [address] [place] [address] , [address], [place], [place], [id number], 08/27/2023 14:28:46 Symbicort 160 mcg-4.5 mcg/actua tion HFA aerosol inhaler [email or web address], [place], [place], [id number], 05/25/2024 15:11:44 Patient TargetsNo targets recorded. Patient Instructions Encounter Date Encounter Id Patient Instructions Last Modified By Organization Details Last Modified Time 08/19/2023 [id number] PT SX N/V APPEAR S TO BE EXACERBATED BY OZEMPIC. RECOMMEND TO TAKE ZOFRAN 4 MG SL EVERY 4-6 HRS ATC FOR THE NEXT 48 HRS POST HER OZEMPIC SHOT. F/U IN [facility]TH[facility]. [email or web address] Not available 08/19/2023 15:12:48 08/27/2023 [id number] complete PFT w/ post bronchodilator spirometry* [email or web address] Not available 05/18/2024 17:46:37 Reason for Referral None Reported. Results Created Date Observation Date Name Description Value Unit Range Abnormal Flag Note LastModifiedBy Organization Detail LastModifiedTime 07/17/19 24 04/06/2023 XR, foot, 3 or more view No observ ation record ed. [email or web address] [facility] () [address] [place], [address], 07/27/2023 08:32:39 Result Notes None recorded. Problems Name Problem SNOMED Code Status Onset Date Resolution Date Notes Provider Name and Address Organization Details Recorded Time Intermitt ent palpitati ons 070848524 Active 2021 Not Available [facility] 3 15:09:42 Chronic obstructi ve pulmonary disease 57536424 Completed Not Available [facility] 3 08:49:39 Bruxism 060390761 Active Not Available [facility] 3 15:09:42 Asthma 769645074 Active Not Available [facility] 3 15:09:42 Moderate chronic obstructi ve pulmonary disease 429229447 Active Not Available [facility] 3 15:09:42 Vitamin D deficienc y 33197059 Active 2021 Not Available [facility] 3 15:09:42 Depressiv e disorder 34267438 Active Not Available [facility] 3 15:09:42 Hypertens nickolas disorder 25612681 Active Not Available [facility] 3 15:09:42 Osteoarth ritis 646075180 Active Not Available [facility] 3 15:09:42 Umbilical hernia 614542067 Active Not Available [facility] 3 15:09:42 Periodic limb movement disorder 436686118 Active Not Available [facility] 3 15:09:42 History of polyp of colon 268172650 Active Not Available [facility] 3 15:09:42 Hyperlipi demia 15608945 Active Not Available [facility] 3 15:09:42 Carpal tunnel syndrome 36308441 Active Not Available [facility] 3 15:09:42 Allergic rhinitis 40282781 Active 2021 Not Available [facility] 3 15:09:42 Vitamin B12 deficienc y (non anemic) 98826085 Active 2021 Not Available [facility] 3 15:09:42 Gastropar esis due to type 2 diabetes mellitus 442186039 Active 2022 Not Available [facility] 3 15:09:42 Oropharyn geal dysphagia 55219597 Active 2022 Not Available [facility] 3 15:09:42 Obstructi ve sleep apnea syndrome 61229531 Active Not Available [facility] 3 15:09:42 Closed fracture of phalanx of foot 65783891 Active Not Available [facility] 3 15:09:42 Anxiety 06345382 Active 2023 Luci rios [facility] 4 14:21:07 Gout 33281767 Active 2023 Luci rios [facility] 4 14:22:14 Kidney disease 04529925 Active 2023 Luci rios [facility] 4 14:23:45 Obesity 719605819 Active 2023 Luci Chavez null, [facility] 4 14:23:53 Right Achilles tendiniti s [id number] 9102 Active 2023 Chema Rapp, DPM [address] [facility], [facility] [address], [place], [address] , [facility] 4 14:43:50 Notes:Medical History: Depre ssion Hypogammaglobulinemia (IgG2) Bilateral tinnitus COVID infection 01/2022 Rhinitis to cockroach Eosinophils 380/uL Bruxism Obesity with severe OSAHS, AHI = 41, 01/01/15, on CPAP c/o IVRC Hypertension EF 60% Mixed hyperlipidemia T2DM with gastroparesis, neuropathy, microalbuminuria Alpha-1 antitrypsin PiMM 164 mg% Mod ACO JAMAR Umbilical hernia Microcytic anemia B12 deficiency PLMD Vit D deficiency Gout Osteoarthritis Bilateral CTS L>R ulnar neuropathy PAP Mask Use History: ResMed AirFit P10 nasal pillows Procedure History: EDWIN-BSO 1998 Some problems listed in Document: #[id number] could not be added to this patient's chart. Please review this document and add these problems to the patient's chart manually as needed. Problem Notes None recorded. Procedures Surgical History Date Name Laterality Status Provider Name and Address Organization Details Recorded Time Carpal tunnel surgery completed Not Available [facility] 08/13/2022 08:45:24 Revise ulnar nerve at elbow completed Not Available [facility] 08/13/2022 08:45:24 Endoscopy completed Not Available [facility] 0 08/13/2022 08:45:24 Colonoscopy completed Not Available [facility] 08/13/2022 08:45:24 Hernia Repair completed Not Available [facility] 08/13/2022 08:45:24 Hysterectomy completed Not Available [facility] 08/13/2022 08:45:24 nerve conduction study completed Not Available [facility] 08/13/2022 08:45:24 Imaging Results Imaging Date Name Status LastModified by Organiz ation Details LastModified Time 04/06/2023 XR, foot, 3 or more view completed [email or web address] () [address] [place], [address], 07/27/2023 08:32:39 Procedure Notes None recorded. Medical Equipment None Reported. Allergies Allergen ID Allergen Name Allergen Category Reaction Reaction Severity Criticality Documentation Date Start Date Code Code System Note Provider Name and Address Organization Details Recorded Time Product containin g penicilli n (product) medicatio n Not available Not available Not available 08/13/2022 [id number] SNOMED Not Available [facility] 3 08:54:27 aspirin medicatio n Not available Not available Not available 08/13/2022 1191 RxNorm Not Available [facility] 3 08:54:27 Medications Name Sig Start Date Stop Date Status Note LastModified by Organization Details LastModified Time losartan 50 mg tablet Take 1 tablet every day by oral route. active Not Available Not Available No t Available cyclobenzap rine 10 mg tablet Take 1 tablet 3 times a day by oral route. 08/26 completed Not Available Not Available Not Available atorvastati n 40 mg tablet 10/15 completed Not Available Not Available Not Available metformin 500 mg tablet 11/28 completed Not Available Not Available Not Available hydrocodone 7.5 mg-ibuprofe n 200 mg tablet TAKE 1 TABLET Q 4-6 H PRN FOR PAIN 03/03 completed Not Available Not Available Not Available Qvar 80 mcg/actuati on Metered Aerosol oral inhaler 03/03 completed Not Available Not Available Not Available bupropion HCl SR 150 mg tablet,12 hr sustained-r elease 11/28 completed Not Available Not Available Not Available atorvastati n 80 mg tablet active Not Available Not Available Not Available prednisone 10 mg tablet 03/03 completed Not Available Not Available Not Available gabapentin 600 mg tablet Take 1 tablet every day by oral route. 03/25 completed Not Available Not Available Not Available atorvastati n 20 mg tablet Take 1 tablet every day by oral route. active Not Available Not Available No t Available lamotrigine 200 mg tablet Take 1 tablet twice a day by oral route. active Not Available Not Available No t Available ipratropium 0.5 mg-albutero l 3 mg (2.5 mg base)/3 mL nebulizatio n soln INHALE 1 VIAL VIA NEBULIZER QID active Not Available Not Available No t Available tizanidine 2 mg tablet active Not Available Not Available Not Available clindamycin HCl 300 mg capsule 03/03 completed Not Available Not Available Not Available albuterol sulfate 2.5 mg/3 mL (0.083 %) solution for nebulizatio n Inhale 3 mL 4 times a day by nebulizat ion route as needed for 30 days. 03/25 completed Not Available Not Available Not Available atorvastati n 10 mg tablet active Not Available Not Available Not Available azithromyci n 250 mg tablet 05/25 completed Not Available Not Available Not Available nicotine (polacrilex ) 2 mg gum Chew 1 piece of gum every 2 hours by oral route as needed for 30 days. 10/01 completed Not Available Not Available Not Available fluconazole 150 mg tablet TAKE ONE TABLET BY MOUTH every 72 hours DIRECTED FOR 9 DAYS 04/25 completed Not Available Not Available Not Available levetiracet am 500 mg tablet 04/25 completed Not Available Not Available Not Available hydrocodone 5 mg-acetamin ophen 325 mg tablet TK 1-2 TS PO Q 4-6 H PRN P 03/03 completed Not Available Not Available Not Available ondansetron HCl 4 mg tablet 05/25 completed Not Available Not Available Not Available prednisone 20 mg tablet 05/25 completed Not Available Not Available Not Available clonazepam 0.5 mg tablet 03/03 completed Not Available Not Available Not Available sertraline 100 mg tablet Take 1 tablet every day by oral route. active Not Available Not Available No t Available cyanocobala min (vit B-12) 1,000 mcg tablet Take 1 tablet every other day by oral route. 2023 active Not Available Not Available Not Avai lable topiramate 25 mg tablet 11/28 completed Not Available Not Available Not Available erythromyci n 250 mg tablet,gissell yed release 10/15 completed Not Available Not Available Not Available acetaminoph en 300 mg-codeine 30 mg tablet Take 1 tablet every 6 hours by oral route. 10/19 completed Not Available Not Available Not Available chlorthalid one 25 mg tablet active Not Available Not Available Not Available allopurinol 100 mg tablet Take 1 tablet every day by oral route. active Not Available Not Available No t Available sulfamethox azole 800 mg-trimetho prim 160 mg tablet TAKE 1 TABLET BY MOUTH TWICE A DAY TAKE WITH FOOD, COMPLETE FULL PRESCRIPT ION. active Not Available Not Available No t Available tramadol 50 mg tablet TK 1 T PO BID PRN 03/03 completed Not Available Not Available Not Available glimepiride 2 mg tablet Take 2 tablets twice a day by oral route before meals for 90 days. 04/25 completed Not Available Not Available Not Available fenofibrate micronized 134 mg capsule 06/23 completed Not Available Not Available Not Available alprazolam 0.25 mg tablet 10/15 completed Not Available Not Available Not Available magnesium oxide 400 mg (241.3 mg magnesium) tablet Take 1 PO daily 06/23 completed Not Available Not Available Not Available trazodone 100 mg tablet active Not Available Not Available Not Available nicotine (polacrilex ) 4 mg gum Chew 1 piece of gum every 2 hours by oral route as directed for 30 days. 05/24 completed Not Available Not Available Not Available [employer] SolutionsTouch Ultra Test strips USE TO CHECK BLOOD SUGAR EVERY DAY 05/25 completed Not Available Not Available Not Available dexamethaso ne 1 mg tablet take dexa tablet at 11 pm night before 9 am cortisol active Not Available Not Available No t Available baclofen 10 mg tablet TAKE 1 TABLET BY MOUTH EVERY DAY NEEDED active Not Available Not Available No t Available gemfibrozil 600 mg tablet Take 1 tablet twice a day by oral route. 06/23 completed Not Available Not Available Not Available hydrocodone 7.5 mg-acetamin ophen 325 mg tablet 03/03 completed Not Available Not Available Not Available pantoprazol e 40 mg tablet,gissell yed release Take 1 tablet every day by oral route. active Not Available Not Available No t Available trazodone 150 mg tablet 03/25 completed Not Available Not Available Not Available ferrous sulfate 325 mg (65 mg iron) tablet Take 1 PO DAILY 06/23 completed Not Available Not Available Not Available metformin 1,000 mg tablet Take 1 tablet twice a day by oral route. active Not Available Not Available No t Available ranitidine 150 mg tablet 04/19 /2021 completed Not Available Not Available Not Available glimepiride 4 mg tablet active Not Available Not Available Not Available prednisone 50 mg tablet 10/01 completed Not Available Not Available Not Available promethazin e 25 mg tablet 10/01 completed Not Available Not Available Not Available Advair Diskus 500 mcg-50 mcg/dose powder for inhalation Inhale 1 puff twice a day by inhalatio n route. 11/28 completed Not Available Not Available Not Available gabapentin 300 mg capsule Take 1 capsule twice daily 06/23 completed Not Available Not Available Not Available estradiol 2 mg tablet Take 1 tablet every day by oral route. 03/25 completed Not Available Not Available Not Available diclofenac sodium 75 mg tablet,gissell yed release 03/03 completed Not Available Not Available Not Available montelukast 10 mg tablet Take 1 tablet every day by oral route. active Not Available Not Available No t Available acetaminoph en 300 mg-codeine 60 mg tablet TAKE 1 TABLET BY MOUTH 2 TO 3 TIMES DAILY NEEDED FOR RADICULOP ATHY OF LUMBAR REGION FOR 3 WEEKS active Not Available Not Available No t Available ergocalcife rol (vitamin D2) 1,250 mcg (50,000 unit) capsule Take 1 capsule weekly 06/23 completed Not Available Not Available Not Available lorazepam 1 mg tablet Take 1 PO 30-60 min prior to MRI, may repeat dose x1 if needed active Not Available Not Available No t Available ibuprofen 600 mg tablet active Not Available Not Available Not Available Anusol-HC 25 mg rectal suppository 03/25 completed Not Available Not Available Not Available albuterol sulfate HFA 90 mcg/actuati on aerosol inhaler Inhale 1 puff every 4 hours as needed active Not Available Not Available No t Available colchicine 0.6 mg tablet 06/23 completed Not Available Not Available Not Available Voltaren 50 mg tablet,gissell yed release Take 1 tablet every day by oral route. 10/01 completed Not Available Not Available Not Available ketoconazol e 2 % topical cream apply TO AFFECTED AREAS ONCE daily FOR 14 DAYS 08/28 completed Not Available Not Available Not Available oxybutynin chloride 5 mg tablet active Not Available Not Available No t Available ondansetron 4 mg disintegrat ing tablet Place 2 tablets twice a day by transling ual route as needed for 30 days. 05/25 completed Not Available Not Available Not Available topiramate 100 mg tablet 10/19 completed Not Available Not Available Not Available losartan 100 mg tablet active Not Available Not Available Not Available fluticasone propionate 50 mcg/actuati on nasal spray,suspe nsion 03/25 completed Not Available Not Available Not Available metformin ER 500 mg tablet,exte nded release 24 hr 03/03 completed Not Available Not Available Not Available dicyclomine 10 mg capsule 2019 active Not Available Not Available Not Avai lable glipizide 5 mg tablet 10/15 completed Not Available Not Available Not Available metoclopram melissa 10 mg tablet TAKE 1 TABLET BY MOUTH THREE TIMES A DAY BEFORE MEALS active Not Available Not Available No t Available nabumetone 500 mg tablet 10/15 completed Not Available Not Available Not Available azithromyci n 500 mg tablet TK 1 T PO QD 03/03 completed Not Available Not Available Not Available ezetimibe 10 mg tablet active Not Available Not Available Not Available cyclobenzap rine 5 mg tablet 10/19 completed Not Available Not Available Not Available Premarin 1.25 mg tablet 11/28 completed Not Available Not Available Not Available TriLyte With Flavor Packets 420 gram oral solution 03/03 completed Not Available Not Available Not Available topiramate 50 mg tablet 03/03 completed Not Available Not Available Not Available nitrofurant oin monohydrate /macrocryst als 100 mg capsule 11/28 completed Not Available Not Available Not Available levetiracet am 1,000 mg tablet 06/23 completed Not Available Not Available Not Available Advair HFA 230 mcg-21 mcg/actuati on aerosol inhaler Inhale 2 puffs twice a day by inhalatio n route. active Not Available Not Available No t Available fenofibrate nanocrystal lized 145 mg tablet active Not Available Not Available No t Available Januvia 50 mg tablet 10/15 completed Not Available Not Available Not Available Januvia 100 mg tablet Take 1 tablet every day by oral route. active Not Available Not Available No t Available Symbicort 160 mcg-4.5 mcg/actuati on HFA aerosol inhaler Inhale 2 puffs twice a day by inhalatio n route as directed 05/25 completed Not Available Not Available Not Available peg 3350-electr olytes 236 gram-22.74 gram-6.74 gram-5.86 gram solution 03/03 completed Not Available Not Available Not Available lurasidone 40 mg tablet Take 1 tablet every day by oral route. active Not Available Not Available No t Available Easy Touch Alcohol Prep Pads USE TO CLEAN THE INJECTION SITE OF INSULIN AND WHEN CHECKING BLOOD SUGAR 05/25 completed Not Available Not Available Not Available Vascepa 1 gram capsule Take 2 capsules twice a day by oral route. 06/23 completed Not Available Not Available Not Available Latuda 60 mg tablet 03/03 completed Not Available Not Available Not Available Farxiga 10 mg tablet Take 1 tablet every day by oral route. active Not Available Not Available No t Available Anoro Ellipta 62.5 mcg-25 mcg/actuati on powder for inhalation INHALE 1 PUFF DAILY DIRECTED 03/25 completed Not Available Not Available Not Available Incruse Ellipta 62.5 mcg/actuati on powder for inhalation Inhale 1 puff every day by inhalatio n route as directed for 30 days. 03/03 completed Not Available Not Available Not Available albuterol sulfate 90 mcg/actuati on breath activated powder inhaler Inhale 2 puffs every 4 hours by inhalatio n route. 2019 active Not Available Not Available Not Avai lable Stiolto Respimat 2.5 mcg-2.5 mcg/actuati on solution for inhalation INHALE 2 PUFFS DAILY DIRECTED 03/25 completed Not Available Not Available Not Available OneTouch Ultra2 Meter USE TO CHECK BLOOD SUGAR EVERY DAY 10/01 completed Not Available Not Available Not Available OneTouch Delica Plus Lancet 30 gauge USE TO CHECK BLOOD SUGAR EVERY DAY 05/28 completed Not Available Not Available Not Available Sutab 1.479-0.188 -0.225 gram tablet TAKE DIRECTED FOR BOWEL PREP FOR COLON PROCEDURE 01/01 completed Not Available Not Available Not Available Ozempic 0.25 mg or 0.5 mg (2 mg/3 mL) subcutaneou s pen injector 05/25 completed Not Available Not Available Not Available Vitals Date Recorded Body height Heart rate Respiratory rate Oxygen saturation Oxygen saturation in Arterial blood by Pulse oximetry Systolic blood pressure Diastolic blood pressure Provider Name and Address Organization Details Last Updated DateTime 4 167.64 cm 91 /min 14 /min 98 % 98 % 114 mm[Hg] 68 mm[Hg] Tere Ramos [employer] [facility] 4 14:06:00 Date Recorded Body mass index (BMI) Body weight Provider Name and Address Organization Details Last Updated DateTime 06/23/2023 38.7 kg/m2 675231.17 g Luci Chavez [employer] [facility] 06/23/2023 14:17:59 Date Recorded Body height Body mass index (BMI) Body weight Heart rate Respiratory rate Body temperature Oxygen saturation Oxygen saturation in Arterial blood by Pulse oximetry Systolic blood pressure Diastolic blood pressure Provider Name and Address Organization Details Last Updated DateTime 4 167.64 cm 38.7 kg/m2 091603. 17 g 91 /min 14 /min 98.4 [degF] 98 % 98 % 114 mm[Hg] 68 mm[Hg] Adriana Garnett [employer] 4 14:12:42 Date Recorded Body height Body mass index (BMI) Body weight Heart rate Oxygen saturation Oxygen saturation in Arterial blood by Pulse oximetry Systolic blood pressure Diastolic blood pressure Provider Name and Address Organization Details Last Updated DateTime 4 167.64 cm 38.7 kg/m2 422664. 17 g 90 /min 99 % 99 % 112 mm[Hg] 70 mm[Hg] GRETA Salvador [employer] [facility] 4 14:20:27 Date Recorded Body height Body mass index (BMI) Body weight Body temperature Systolic blood pressure Diastolic blood pressure Provider Name and Address Organization Details Last Updated DateTime 4 167.64 cm 38.4 kg/m2 679543. 98 g 98.3 [degF] 124 mm[Hg] 66 mm[Hg] Amaris Tobias [place] [facility] 4 14:08:15 Date Recorded Heart rate Oxygen saturation Oxygen saturation in Arterial blood by Pulse oximetry Heart rate Respiratory rate Provider Name and Address Organization Details Last Updated DateTime 4 99 /min 94 % 94 % 99 /min 15 /min Elver De Luna MD [address], [place], [address] , [facility] [facility] 4 14:36:16 Date Recorded Body height Body mass index (BMI) Body weight Body temperature Heart rate Systolic blood pressure Diastolic blood pressure Provider Name and Address Organization Details Last Updated DateTime 4 167.64 cm 35.6 kg/m2 188769. 2 g 98.3 [degF] 79 /min 118 mm[Hg] 60 mm[Hg] Amaris Tobias MA [facility] [facility] 4 14:56:40 Date Recorded Oxygen saturation Oxygen saturation in Arterial blood by Pulse oximetry Heart rate Respiratory rate Provider Name and Address Organization Details Last Updated DateTime 05/25/2024 95 % 95 % 79 /min 14 /min Elver De Luna MD [address], [place], [address] , [place] [facility] 4 15:05:47 Social History Question Answer Notes LastModified by Organization Details LastModified Time Tobacco Smoking Status Former Smoker quit 01/2022 Luci rios, [facility] 06/23/2023 13:58:54 Do You Have An Advance Directive? No [id number] Information not available 08/13/2022 What Is Your Level Of Alcohol Consumption? Occasional Information not available 06/23/2023 What Is Your Level Of Caffeine Consumption? Moderate [id number] Information not available 08/13/2022 How Much Tobacco Do You Chew? None [id number] Information not available 08/13/2022 In The 14 Days Before Symptom Onset, Have You Had Close Contact With A Laboratory-confi rmed COVID-19 While That Case Was Ill? No Information not available 06/23/2023 In The 14 Days Before Symptom Onset, Have You Had Close Contact With A Person Who Is Under Investigation For COVID-19 While That Person Was Ill? No Information not available 06/23/2023 Are You Currently Employed? No Information not available 05/25/2024 What Type Of Diet Are You Following? REGULAR [id number] Information not available 08/13/2022 Which Illicit Or Recreational Drugs Have You Used? None Information not available 06/23/2023 Do You Or Have You Ever Used E-cigarettes Or Vape? Never Used Electronic Cigarettes Information not available 06/23/2023 Do You Have An Electrostatic Air Filter? No Information not available 06/23/2023 What Is Your Occupation? Disabled Information not available 06/23/2023 Have You Been Exposed To Chemicals Or Toxins? No Not That Aware Of Information not available 05/25/2024 Have There Been Any Changes To Your Family Or Social Situation? No Information not available 06/23/2023 What Is The Fluoride Status Of Your Home? Unknown Information not available 06/23/2023 Are There Any Guns Present In Your Home? No Information not available 06/23/2023 Do You Have A Humidifier? No Information not available 06/23/2023 Where Do You Live? SingleLevelHouse Information not available 06/23/2023 Do You Have A Medical Power Of Regulatory Internship? No Information not available 06/23/2023 Do You Have Moisture Problems In Your Home? No Information not available 06/23/2023 What Was The Date Of Your Most Recent Tobacco Screening? 05/25/2024 Information not available 05/25/2024 Do You Have Any Pets? Yes Information not available 06/23/2023 What Is Your Relationship Status? Single [id number] Information not available 08/13/2022 Do You Use Your Seat Belt Or Car Seat Routinely? Yes Information not available 06/23/2023 Do You Have Smoke And Carbon Monoxide Detectors In Your Home? Yes Information not available 06/23/2023 At What Age Did You Start Smoking Tobacco? 11 Information not available 06/23/2023 Are You Passively Exposed To Smoke? No Information not available 06/23/2023 Do You Or Have You Ever Used Smokeless Tobacco? Never Used Smokeless Tobacco [id number] Information not available 08/13/2022 Are There Any Smokers In Your House? No Information not available 06/23/2023 How Much Tobacco Do You Smoke? No [email or web address] Information not available 05/28/2023 Do You Feel Stressed (tense, Restless, Nervous, Or Anxious, Or Unable To Sleep At Night)? [id number] Information not available 06/23/2023 Do You Use Any Illicit Or Recreational Drugs? No Information not available 06/23/2023 Do You Use Sunscreen Routinely? No Information not available 06/23/2023 How Many Years Have You Smoked Tobacco? 30 Information not available 06/23/2023 Have You Recently Traveled Abroad? No Information not available 06/23/2023 Do You Have Any Dietary Restrictions? No Information not available 06/23/2023 Do You Or Have You Ever Used Any Other Forms Of Tobacco Or Nicotine? No Information not available 06/23/2023 Sex: Unknown Functional Status Question Answer Note LastModified by Organizat ion Details LastModified Time What is your exercise level? Occasional [id number] Information not available 08/13/2022 Mental Status None recorded. Family History Relationship Description Onset Age of this Age Resolved Age Notes LastModified by Organization Details LastModified Time Unspecified Relation Mental disorder [id number] Not available 08/13/2022 08:45:27 Unspecified Relation Family history of malignant neoplasm GRANDM OTHER [email or web address] Not available 08/19/2023 14:19:50 Unspecified Relation Cerebrovascu lar accident GRANDM OTHER rmacios Not available 08/19/2023 14:19:50 Unspecified Relation Arthritis GRANDF ATHER rmacios Not available 08/19/2023 14:19:50 Unspecified Relation Hypertensive disorder GRANDF ATHER Not available 06/23/2023 14:26:26 Unspecified Relation Heart disease GRANDF ATHER Not available 06/23/2023 14:26:54 Unspecified Relation Osteoporosis GRANDM OTHER rmacios Not available 08/19/2023 14:19:50 Maternal Grandmother Peptic ulcer rmacios Not available 0 08/19/2023 14:19:50 Maternal Grandmother Asthma [id number] Not available 08/13/2022 08:45:27 Maternal Grandfather Diabetes mellitus [id number].271 [id number] Not available 08/13/2022 08:45:27 Father Diabetes mellitus MIGRATION.254 [id number] Not available 08/13/2022 08:45:27 Brother Asthma MIGRATION.202 [id number] Not available 08/13/2022 08:45:27 Sister Asthma MIGRATION.291 [id number] Not available 08/13/2022 08:45:27 Mother Asthma MIGRATION.609 [id number] Not available 08/13/2022 08:45:27 Mother Diabetes mellitus Not available 2023 14:25:11 Mother Arthritis rmacios Not available 08/19/2023 14:19:50 Father Arthritis rmacios Not available 08/19/2023 14:19:50 Father Heart disease Not available 2023 14:26:54 Medical History Condition Response ARTHRITIS Y DIABETES, TYPE Y ALLERGIES/HAYFEVER Y LUNG DISEASE/DISORDER Y HIGH CHOLESTEROL / HYPERLIPIDEMIA Y BLOOD CLOTS Y PULMONARY DISEASE Y GOUT Y DEPRESSION (INCLUDING POST ) Y BOWEL PROBLEMS Y BACK / NECK PROBLEMS Y HEADACHES/MIGRAINES Y GI PROBLEMS Y KIDNEY DISEASE Y HYPERTENSION Y OBESITY Y ANXIETY DISORDER Y GERD/NAUSEA Y Gynecological HistoryNo gynecological history recorded. Obstetrics History GPAL:G 0 P 0 0 0 0 Past Encounters Encounter ID Performer Location Encounter Start Date Encounter Closed Date Diagnosis/Indication Diagnosis SNOMED-CT Code Diagnosis ICD10 Code Diagnosis Note [id number] _ATHENA_M IGRATION_ DEFAULT_1 _1 , 10/03/2020 00:00:00 10/03/2020 17:20:06 [id number] [facility] [address] [facility] [address] [address] 10/19/2020 00:00:00 10/19/2020 17:23:14 [id number] [facility] [address] [facility] [address] [address] 10/26/2020 00:00:00 10/26/2020 16:35:23 [id number] _ATHENA_M IGRATION_ DEFAULT_1 _1 , 10/31/2020 00:00:00 10/31/2020 14:41:44 [id number] [facility] [address] [address] 11/23/2020 00:00:00 11/23/2020 17:08:20 [id number] _ATHENA_M IGRATION_ DEFAULT_1 _1 , 12/05/2020 00:00:00 12/05/2020 14:53:50 [id number] [facility] [address] [address] 12/06/2020 00:00:00 12/06/2020 16:02:03 [id number] [facility] General Surgery [address] [place] [address], [address] [address] 12/11/2020 00:00:00 12/11/2020 13:55:59 [id number] [facility] Internal Med [address], [address] [address] 02/01/2021 00:00:00 02/01/2021 20:54:22 [id number] [facility] General Surgery [address] [place] [address], [address] [address] 03/28/2021 00:00:00 03/28/2021 15:17:18 [id number] [facility] Pulmonolo [address] [address] 04/23/2021 00:00:00 05/14/2021 14:24:18 [id number] [facility] [address], [address] [address] 05/14/2021 00:00:00 05/14/2021 16:37:57 [id number] [facility] General Surgery [address] [place] [address], [address] [address] 06/18/2021 00:00:00 06/18/2021 13:43:46 [id number] [facility] [address], [address] [address] 06/24/2021 00:00:00 06/24/2021 14:37:34 [id number] [facility] General Surgery [address] [place] [address], [address] [address] 07/09/2021 00:00:00 07/11/2021 12:59:45 [id number] [facility] [address], [address] [address] 07/30/2021 00:00:00 07/30/2021 21:13:54 [id number] [facility] General Surgery [address] [place] [address], [address] [address] 08/13/2021 00:00:00 08/15/2021 14:46:26 [id number] [facility] [address], [address] [address] 08/19/2021 00:00:00 08/19/2021 16:18:56 [id number] _ATHENA_M IGRATION_ DEFAULT_1 _1 , 09/26/2021 00:00:00 09/26/2021 16:22:32 [id number] [facility] [address], [address] [address] 10/15/2021 00:00:00 10/15/2021 17:17:06 [id number] [facility] [address] [address] 03/25/2022 00:00:00 03/25/2022 15:20:54 [id number] [facility] General Surgery [address] [place] [address], [address] [address] 08/06/2022 00:00:00 08/06/2022 14:46:25 [id number] Karen Salas MD [facility] General Surgery [address] [place] [address], [address] [address] 03/18/2023 10:59:29 03/18/2023 11:28:51 Gastroparesis due to type 2 diabetes mellitus 925004897 E11.43 Nausea and vomiting 1692 1999 R11.2 TRY NON CRYSTALLIZ ED ANAHI [id number] Elver De Luna MD [facility] [place] [address] [place] [address] 05/28/2023 15:03:41 06/01/2023 09:09:47 Obstructive sleep apnea syndrome 62006855 G47.33 Moderate c hronic obstructive pulmonary disease 741067405 J44.9 Vitamin B1 2 deficiency (non anemic) 24146241 E53.8 [id number] Chema Rapp DPM [facility] Podiatry [address], [facility] 4 [place] [address] 06/23/2023 13:56:31 06/30/2023 13:48:37 Pain in right heel 3449252765 081920 M79.671 x-rays reviewed 04/06/2023 update new x-raysoffl oading Achillesre commend Achilles heel sleevefoll ow-up in 3-4 weeks Right Achi lles tendinitis 8259847348 38093 M76.61 rice therapystr etching and icing instructio ns reviewed Ex-cigarette smoker 2810 36573 Z87.891 recommend discontinu e smokingsid e effects of smoking reviewed with the patient Morbid obesity 850643177 E66.01 recommend weight loss [id number] Chema Rapp DPM [facility] Podiatry [address], [facility] 4 [place] [address] 07/21/2023 14:08:00 07/28/2023 14:48:27 Right Achilles tendinitis 6539564426 09655 M76.61 rice therapyrx physical therapystr etching and icing instructio ns reviewedfo llow up in 7 weekspt didnt get new xrays [id number] Karen Salas MD [facility] [address] [place] [address] 27 [place] [address] 08/19/2023 14:19:42 08/19/2023 14:45:04 Nausea and vomiting 96889089 R11.2 TAKE ZOFRAN Q 4 HRS X 48 HR POST OZEMPIC SHOT . Gastropare sis due to type 2 diabetes mellitus 668271050 E11.43 CONT REGLAN /ZOFRAN [id number] Elver De Luna MD [facility] [place] [address] 08/27/2023 13:57:25 08/28/2023 09:06:40 Obstructive sleep apnea syndrome 57602810 G47.33 Moderate c hronic obstructive pulmonary disease 470961530 J44.9 Vitamin B1 2 deficiency (non anemic) 15353804 E53.8 [id number] Elver De Luna MD [facility] [place] [address] 05/25/2024 14:34:42 05/25/2024 16:33:50 Obstructive sleep apnea syndrome 16674737 G47.33 Moderate c hronic obstructive pulmonary disease 723941125 J44.9 Vitamin B1 2 deficiency (non anemic) 56766502 E53.8 Health Concerns Section Related Observation LastModified by Organization Detai ls LastModified Time None Recorded Concern Status LastModified by Organization Details LastModified Time None Recorded Advance Directives Directive N: Payers Encounter Date Sequence Insurance Name Policy Number Policy Vu Covered Member ID Vu Member ID Guarantor Name 06/23/2023 2 [facility] ([facility]ICAID [facility]PLACEMENT - [facility] [id number] Yumi A White [id number] Yumi A White 06/23/2023 1 [facility] (MEDICARE REPLACEMENT/AD VANTAGE - PPO) [id number] Yumi A White [id number] Yumi A White 07/21/2023 2 [facility] (MEDICAID REPLACEMENT - O) [id number] Yumi A White [id number] Yumi A White 07/21/2023 1 [facility] (MEDICARE REPLACEMENT/AD VANTAGE - PPO) [id number] Yumi A White [id number] Yumi A White 08/19/2023 2 [facility] (MEDICAID REPLACEMENT - O) [id number] Yumi A White [id number] Yumi Null White 08/19/2023 1 [facility] (MEDICARE REPLACEMENT/AD VANTAGE - PPO) [id number] Yumi Null White [id number] Yumi Null White 08/27/2023 2 [facility] (MEDICAID REPLACEMENT - HMO) [id number] Yumi Null White [id number] Yumi Null White 08/27/2023 1 [facility] (MEDICARE REPLACEMENT/AD VANTAGE - PPO) [id number] Yumi A White [id number] Yumi A White 05/25/2024 1 [facility] (MEDICARE REPLACEMENT/AD VANTAGE - PPO) [id number] Yumi A White [id number] Yumi A White 05/25/2024 2 [place] [facility] Yumi Null White [id number] Yumi Null White Notes Date Note Type Note Provider Name and Address Organization Details Recorded Time 06/23/2023 text/html . Patient is a 48-year-old female who presents the office with complaints of a knot on her heel. Patient states that she has pain in this area this has been ongoing since 03/15/2023. Patient states that walking and riding a bike causes more discomfort. Patient states her pain is 10/10 and describes it as stabbing, throbbing aching and sharp in nature. Patient states that she does walk with the use of a cane and walker due to discomfort. Patient states that she has taken anti-inflammatories and underwent physical therapy for this condition. Patient states despite this she has still had pain. Patient denies any open wounds to the area. Patient states when she is at rest does feel better. Chema Rapp, TONNY [address] [facility], [facility] [address], [place], [address], [facility] [employer] 06/30/2023 12:18:16 07/21/2023 text/html Your patient is 48-year-old females ex smoker who returns to the office for [place] on right heel pain. Patient did not obtain new x-rays but did have x-rays on 2322 which shows model the moderate spring of the Achilles insertion. Patient continues to have pain at this area despite reduced walking. Patient does present with walker today. Patient will be referred to physical therapy to see if this will help. Patient denies any other complaints. Chema Rapp DPM [address], [address], [place], [address], [employer] 07/21/2023 14:29:58 08/19/2023 text/html YUMI WAS SEEN IN THE OFFICE TODAY FOR EVALUATION . PT IS C/O ABD PAIN N/V. PT HAS KNOWN GASTROPARESIS . SHE TAKES REGLAN / ZOFRAN . SHE DID WERLL UNTILL SHE WAS RXED OZEMPIC. SHE TAKES HER SHOT ON A THURSDAY . SHE REPORTS THAT BY THURSDAYOR THURSDAY SHE GET N/V IN THE NIGHT AND SX ARE SEVERE . SHE HAS LOST 21 LBS. HRE HBA1C HAS IMPROVED TO 7. Karen Salas MD [address], [address], [place], [address], [facility] 08/19/2023 15:13:47 08/27/2023 text/html Primary care/Ref erring provider: BEBO Rodriguez-CPatient is here to go over her asthma/COPD/HOLLAND management.Initial development of shortness of breath: 2015Duration of shortness of breath: 9 yearsCondition of shortness of breath: stableTiming of shortness of breath: night timeFrequency: up to 3 times a weekLimits activities: yesAggravating factors: walking, lifting heavy thingsAlleviating factors: restModified Medical Research [place] (mMRC) Dyspnea Scale - Grade 2Grade 0 I only get breathless with strenuous exercise .Grade 1 I get short of breath when hurrying on the level or walking up a slight hill .Grade 2 I walk slower than people of the same age on the level because of breathlessness or have to stop for breath when walking at my own pace on the level .Grade 3 I stop for breath after walking about 100 yards or after a few minutes on the level .Grade 4 I am too breathless to leave the house or I am breathless when dressing .Treatment history:Patient does not like powdered inhaler and she does not like the taste of certain mist inhaler, hence the frequent switch of inhalers.albuterol HFA as needed since lbuterol nebs 02/2018 -1Duonebs 07/2016 - 11/2019QVAR 80 mcg 01/2015 - 02/2019Advair 500/50 inhaler 2014 - 2019Symbicort 160/4.5 09/2017 - 11/2019Incruse Ellipta 02/2018 - 02/2019Anoro Ellipta 62.5/25 mcg 09/2019 onlyStiolto Respimat 05/2018 - 10/2020Other symptoms:Productive cough: clearWheezing: noChest tightness: yesOrthopnea: noFrequent throat clearing or swallowing: noPalpitations: noHeartburn: noDysphagia: noEdema: noEnvironmental exposures:Nicotine smoke: 06/16 ppd 3618-5193 = 13.5 pack yearsPaint: noDye: noDust mites: yesMold: yesDamp basement: noWood burning stove: noAnimal dander: catCockroaches: noPollen: yesArsenic: noAsbestos: noBeryllium: noCadmium: noChromium: noCoal smoke: noDiesel fumes: noNickel: noSilica: noSoot: noAt home since 07/18/23, the patient uses a ResMed AirSense 11 autoset unit with heated humidification. She does not need the ramp to start low and go up slowly on the pressure anymore. There is no xerostomia in a.m. There is no hose/mask condensation with water.Patient wears ResMed AirFit P10 nasal pillows without chin strap. There is no claustrophobia, no nostril/nose bridge irritation, no facial rash, no facial numbness, no nosebleeding.Patient feels more refreshed upon waking and daytime alertness is improved. Energy levels are sustained for the remainder of the day.At home, the patient sleeps from 1 am to 10 am and wakes up without an alarm.Snoring: heavy, since .Snorting: yesChoking: noCoughing: yesGasping: yesGagging: noSighing: noWitnessed apnea: yesTwitching or jerking of leg(s), arm(s), body, head: yesTeeth grinding: yesTeeth clenching: yesSleeptalking: noSleepwalking: noSleep crying: noBedwetting: noTongue/lip/gum/cheek biting: yesSleeping with open mouth: yesSleep paralysis: noHypnagogic hallucinations: noHypnopompic hallucinations: noVivid dreams: noDifficulty with sleep onset: noDifficulty with sleep maintenance: yesSleep interruptions: nocturiaPatient wakes up with: fatigue, xerostomia, sore throat, jaw painDaytime cataplexy: noMorning hypersomnolence: noAfternoon hypersomnolence: yesCaffeine sources in diet: coffee 1 cup per day, tea 1/2 gallon per dayAssociated medical and psychiatric conditions:Congestive heart failure: noCoronary artery disease: noMyocardial infarction: noHypertension: yesStroke: noBronchial asthma: noChronic obstructive pulmonary disease: noDepression: yesBipolar disorder: noAnxiety: noPanic disorder: noPosttraumatic stress disorder: noAttention deficit and hyperactivity disorder: noObsessive Compulsive disorder: noSchizophrenia: noSchizoaffective disorder: noPersonality disorder: noChronic analgesic use: noChronic sedative/hypnotic use: noEPWORTH SLEEPINESS SCALE (ESS)CHANCE OF DOZING SCORE0 = would never doze1 = slight chance of dozing2 = moderate chance of dozing3 = high chance of dozingSITUATION AND CHANCE OF DOZINGSitting and reading - 0Watching television - 0Sitting inactive in a public place (e.g. a theater or meeting) - 0As a passenger in a car for an hour without a break - 0Lying down to rest in the afternoon when circumstances permit - 2Sitting and talking to someone - 0Sitting quietly after lunch without alcohol - 0In a car, while stopped for a few minutes in the traffic - 0TOTAL SCORE 5Subjectively, patient has a slight chance of dozing. Elver De Luna MD [address] [place] [address] [address], [place], [address], [place] - [facility] 08/27/2023 14:37:17 05/25/2024 text/html Primary care/Ref erring provider: BEBO Rodriguez-CPatient is here to go over her asthma/COPD/HOLLAND management.Initial development of shortness of breath: 2015Duration of shortness of breath: 9 yearsCondition of shortness of breath: stableTiming of shortness of breath: night timeFrequency: up to 3 times a weekLimits activities: yesAggravating factors: walking, lifting heavy thingsAlleviating factors: restModified Medical Research [place] (mMRC) Dyspnea Scale - Grade 2Grade 0 I only get breathless with strenuous exercise .Grade 1 I get short of breath when hurrying on the level or walking up a slight hill .Grade 2 I walk slower than people of the same age on the level because of breathlessness or have to stop for breath when walking at my own pace on the level .Grade 3 I stop for breath after walking about 100 yards or after a few minutes on the level .Grade 4 I am too breathless to leave the house or I am breathless when dressing .Treatment history:Patient does not like powdered inhaler and she does not like the taste of certain mist inhaler, hence the frequent switch of inhalers.albuterol HFA as needed since lbuterol nebs 02/2018 -1Duonebs 07/2016 - 11/2019QVAR 80 mcg 01/2015 - 02/2019Advair diskus 500/50 inhaler 2014 - 2019Symbicort HFA 160/4.5 mcg 2 puffs BID ; dvair HFA 230/21 mcg 2 puffs BID since 09/2023 Incruse Ellipta 02/2018 - 02/2019Anoro Ellipta 62.5/25 mcg 09/2019 onlyStiolto Respimat 05/2018 - 10/2020Other symptoms:Productive cough: clearWheezing: noChest tightness: yesOrthopnea: noFrequent throat clearing or swallowing: noPalpitations: noHeartburn: noDysphagia: noEdema: noEnvironmental exposures:Nicotine smoke: 1/2 ppd 3406-9013 = 13.5 pack yearsPaint: noDye: noDust mites: yesMold: yesDamp basement: noWood burning stove: noAnimal dander: catCockroaches: noPollen: yesArsenic: noAsbestos: noBeryllium: noCadmium: noChromium: noCoal smoke: noDiesel fumes: noNickel: noSilica: noSoot: noAt home since 08/27/23, the patient uses a ResMed AirSense 11 autoset unit with heated humidification. She does not need the ramp to start low and go up slowly on the pressure anymore. There is no xerostomia in a.m. There is no hose/mask condensation with water.Patient wears ResMed AirFit P10 nasal pillows without chin strap. There is no claustrophobia, no nostril/nose bridge irritation, no facial rash, no facial numbness, no nosebleeding.Patient feels more refreshed upon waking and daytime alertness is improved. Energy levels are sustained for the remainder of the day.At home, the patient sleeps from 1 am to 10 am and wakes up without an alarm.Snoring: heavy, since .Snorting: yesChoking: noCoughing: yesGasping: yesGagging: noSighing: noWitnessed apnea: yesTwitching or jerking of leg(s), arm(s), body, head: yesTeeth grinding: yesTeeth clenching: yesSleeptalking: noSleepwalking: noSleep crying: noBedwetting: noTongue/lip/gum/cheek biting: yesSleeping with open mouth: yesSleep paralysis: noHypnagogic hallucinations: noHypnopompic hallucinations: noVivid dreams: noDifficulty with sleep onset: noDifficulty with sleep maintenance: yesSleep interruptions: nocturiaPatient wakes up with: fatigue, xerostomia, sore throat, jaw painDaytime cataplexy: noMorning hypersomnolence: noAfternoon hypersomnolence: yesCaffeine sources in diet: coffee 1 cup per day, tea 1/2 gallon per dayAssociated medical and psychiatric conditions:Congestive heart failure: noCoronary artery disease: noMyocardial infarction: noHypertension: yesStroke: noBronchial asthma: noChronic obstructive pulmonary disease: noDepression: yesBipolar disorder: noAnxiety: noPanic disorder: noPosttraumatic stress disorder: noAttention deficit and hyperactivity disorder: noObsessive Compulsive disorder: noSchizophrenia: noSchizoaffective disorder: noPersonality disorder: noChronic analgesic use: noChronic sedative/hypnotic use: noEPWORTH SLEEPINESS SCALE (ESS)CHANCE OF DOZING SCORE0 = would never doze1 = slight chance of dozing2 = moderate chance of dozing3 = high chance of dozingSITUATION AND CHANCE OF DOZINGSitting and reading - 3Watching television - 0Sitting inactive in a public place (e.g. a theater or meeting) - 0As a passenger in a car for an hour without a break - 1Lying down to rest in the afternoon when circumstances permit - 1Sitting and talking to someone - 1Sitting quietly after lunch without alcohol - 0In a car, while stopped for a few minutes in the traffic - 0TOTAL SCORE 6Subjectively, patient has a slight chance of dozing. Elver De Luna MD [address] [place] [address], [address], [place] [facility] 05/25/2024 15:23:07 OBGyn Episode No OBEpisode recorded.
[2024-09-15 23:45] VITALS: BP 124/78; PULSE 111; RESP 29; O2SAT 93
--- OUTSIDE RECORDS SUMMARY | 2024-09-15 23:57 | XMS_ITS | CONTINUITY OF CARE DOCUMENT ---
Author Name zahraa vital Address Unknown Organization [facility] Address [address] [place] [address] Phone [phone] Care Team Providers Care Malter Operator Name Role Phone Mandeep VILLANUEVA, Maria Luisa Unavailable HOPMARGO BENNETT Unavailable [phone] HOPMARGO BENNETT Unavailable [phone] PROBLEMS Condition Status Date Provider Notes HTN [...] In-person encounter Office Visit Devyn Garza MD [facility] 4 - 4 In-person encounter Office Visit Devyn Garza MD [facility] PAC'sPVC'sWheezingPalpitationsShortne ss of breathSVT 7 - 7 In-person encounter Office Visit Maria Luisa Kaufman MD [facility] HTN essentialDiabetes mellitusMorbid obesityHyperlipidemiaPreoperative cardiovascular examination for bariatriac surgeryGERDSmokerBipolar disorderSleep apnea VITAL SIGNS Date Observation Value Provider Body Mass Index (Ratio) 39.22 kg/m2 Taew on blood pressure, cuff size large Ke rri Gruenenfelder blood pressure, diastolic 80 mm[Hg] Ke rri Goeuenenfdell [facility] blood pressure, systolic 138 mm[Hg] Zabrina ri Kalyanidell [facility] oxygen saturation, oximetry 93 % Suri Kalyanidell [facility] respiratory rate E&M 16 /min Suri Leslie leedell [facility] pulse rate 96 /min Suri Kalyanitor er weight E&M 243 [lb_av] Suri Evelynnenfe lder height E&M 66 [in_i] Suri Grnathennenfe lder Body Mass Index (Ratio) 40.51 kg/m2 Taew on blood pressure, resting No Dany ty [place] blood pressure, cuff size regular Kr isty Christa blood pressure, diastolic 80 mm[Hg] Kr isty [place] blood pressure, systolic 130 mm[Hg] Kri sty Christa pulse rate 104 /min Shantell [place] oxygen saturation, oximetry 96 % Shantell Christa respiratory rate E&M 19 /min Shantell Christa height E&M 66 [in_i] Shantell Christa weight E&M 251 [lb_av] Shantell [place] Body Mass Index (Ratio) 41.10 kg/m2 Saran Kaufman MD respiratory rate E&M 16 /min [facility] blood pressure, resting Yes [facility] blood pressure, diastolic 100 mm[Hg] To [facility] blood pressure, systolic 168 mm[Hg] [facility] oxygen saturation, oximetry 97 % [facility] pulse rate 85 /min [facility] weight E&M 247 [lb_av] [facility] height E&M 65 [in_i] [facility] ALLERGIES Allergy Name Onset Date Reaction [...] smoking history, tot al pack/year 365 Shantell [place] smoking history, tot al pack/day 1 Shantell [place] cigarette use yes Shantell [place] smoking status Current every day smoker Otf Goodwin number of grandchildren Maria Luisa Kaufman [...] MD smoking history, tot al pack/year 365 [facility] smoking history, tot al pack/day 1 [facility] smoking, date started 1988 [facility] cigarette use yes [facility] smoking status Current every day smoker [facility] FAMILY HISTORY Family Member Condition Mother Family History of Di abetes: Mother Family History of De pression: INSURANCE PROVIDERS Payer name Policy type / Coverage type [place] red republican ID UHC MEDICARE COMPLETE HMO Other [id number] [facility] Medicaid 1 [id number] ADVANCE DIRECTIVES Name Date DISCUSSED - NO DECISION MADE TREATMENT PLAN Date Name Performer [id number],W,per PCP; A1C 7.8% Allie Torrez NP [id number],S,T he Patient was reencouraged to stop smoking. Allie Torrez NP [id number],S,weight loss e ncouraged. Allie Torrez NP [id number],S,Losartan 100 mg daily Allie Torrez NP [id number],B, Allie nguyen NP [id number],S, T he following medications were removed from the medication list: Atorvastatin 10 Mg Tablet (Atorvastatin) Her updated medication list for this problem includes: Atorvastatin 80 Mg Tablet (Atorvastatin) ..... Take 1 tablet by mouth at bedtime Zetia 10 Mg Tablet (Ezetimibe) ..... Take 1 tablet by mouth every day Gemfibrozil 600 Mg Tablet (Gemfibrozil) Allie Torrez NP [id number],S,holter monito r unremarkable Allie Torrez NP Electrophysiology:per PCP; A1C 7 .8% Allie Torrez NP Electrophysiology:Th e Patient was reencouraged to stop smoking. Allie Torrez NP Electrophysiology:weight loss en couraged. Allie Torrez NP Electrophysiology:Losartan 100 m g daily Allie Torrez NP Electrophysiology Allie dixon FACULTY PHYSICIAN Electrophysiology: T he following medications were removed [...] O rders: T obacco cessation counseling, 3-10minutes (27129) F VC - 33804 (80389) F RC - 57426 (68164) D LCO - 17622 (15939) Yuli Kirby Electrophysiology 14 :The patient is using CPAP on a regular basis. The patient has been benefiting from therapy and should continue use. Yuli Kirby Electrophysiology 14 : O rders: F VC - 05554 (87065) F RC - 75752 (59683) D LCO - 77490 (73857) Yuli Kirby Electrophysiology 14 : O rders: M onitor - Telemetry (Mobile Cardiac) (CPT-58117) Yuli Kirby Electrophysiology 14 : O rders: M onitor - Telemetry (Mobile Cardiac) (CPT-63457) Yuli Kofi Electrophysiology 14 : O rders: M onitor - Telemetry (Mobile Cardiac) (CPT-99107) Yuli Kirby Cardiology Maria Luisa Kaufman MD Cardiology Maria Luisa Kaufman MD Cardiology Maria Luisa Kaufman MD Cardiology Maria Luisa Kaufman MD Cardiology:Will obta in stress cardiolite before giving clearance for bariatric surgery. Maria Luisa Kaufman MD Cardiology Maria Luisa Kaufman MD Date Name LIPASE AMYLASE LIPID PANEL COMPREHENSIVE METABO LIC PANEL, W/EGFR Monitor - Telemetry (Mobile Cardiac) DLCO - 84317 FRC - 32743 FVC - 62102 Complete Echo Stress Exercise Card iolite HISTORY [...]
--- OUTSIDE RECORDS SUMMARY | 2024-09-15 23:57 | XMS_ITS | Clinical Summary ---
Author Organization [facility] Address [address] [address] Care Team Providers Care Reimbursement Rep Name Role Phone Devika Cummins MD Primary Care Provider [phone] Allergies Active Allergy Reactions Criticality Noted Date [...] Type Department Care Team Description 08/24/2024 Refill [facility], [employer] [address] [place] [address] [address] [place] [address] Anni Vasquez CMA 07/26/2024 1:15 PM CRTTS Office Visit [facility], [employer] [address] [place] [address] [address] [place] [address] Ben Resendiz DO Stage 3 chronic kidney disease, not otherwise specified (HCC) (Primary Dx); Persistent proteinuria; Other Magnolia's syndrome (HCC); Hypertensive chronic kidney disease; Type 2 diabetes mellitus with diabetic chronic kidney disease (HCC); Pure hypercholesterolemia , not otherwise specified; Idiopathic gout, not otherwise specified; H/O: anemia - iron deficient 07/26/2024 [facility] [address] [place] [phone] Anni Vasquez CMA from Last 3 Months [...] Comments Blood Pressure 120/60 07/26/2024 2:00 PM CRTTS Pulse 61 07/26/2024 2:00 PM CRTTS Temperature 36.1 C (97 F) 07/26/2024 2:00 PM CRTTS Respiratory Rate 18 07/26/2024 2:00 PM CRTTS Oxygen Saturation 97% 07/26/2024 2:00 PM CRTTS Inhaled Oxygen Concentration - - Weight 105 kg (231 lb 6.4 oz) 07/26/2024 2:00 PM CRTTS Height 167.6 cm (5' 6 ) 06/18/2021 2:57 PM CRTTS Body Mass Index 37.35 06/18/2021 2:57 PM CRTTS Plan of Treatment Upcoming Encounters Date Type Department Care Team (Late st Contact Info) Description 11/01/2024 1:30 PM CDT Office Visit [facility] [address] [facility] [address] [place] [address] Ben Resendiz DO [address] [facility] [address] [place] [address] Health Maintenance Due Date Last [...] Insurance MEDICAID [place] UHC MEDICARE Care Teams Reimbursement Rep Relationship Specialty Start Date End Date Placido, Devika Parker MD [address] [place] [address] PCP - General Family Medicine 07/26/24
--- OUTSIDE RECORDS SUMMARY | 2024-09-15 23:57 | XMS_ITS | Clinical Summary ---
Author Organization [facility] Address [address] [place] [address] Care Team Providers Care Agricultural Engineer Name Role Phone Provider, Abstract Primary Care [...] 0 Active fluticasone propionate (FLONASE) 50 mcg/spray [place], Suspension nasal inhaler Administer in each nostril. [...] 19 Colorectal Cancer Screening 12/31/2030 Insurance MEDICAID [place] MEDICARE PART A AND B Care Teams Agricultural Engineer Relationship Specialty Start Date End Date Provider, Abstract NO ADDRESS ON FILE PCP - General 11/20/20
--- OUTSIDE RECORDS SUMMARY | 2024-09-15 23:57 | XMS_ITS | Clinical Summary ---
Author Organization [facility] Address [facility] [place] [address] Care Team Providers Care Insert Molding Operator Name Role Phone Devika Cummins MD Primary Care Provider [phone] Social History Tobacco Use Types Packs/Day Years [...] Description 10/18/2024 11:00 AM CDT Office Visit [facility] [address] [facility] [facility], [address] [place] [address] Alejandro Paulino MD [address] [place] [address] Health Maintenance Due Date Last Done Comments [...] Vaccine (2023-2 5 season) 2024 PHQ-2 (Physician [place]) 06/15/2024 Meningococcal B Vaccine Aged Out No [...] patient's age to complete this topic Insurance [facility] [place] [address] Care Teams Insert Molding Operator Relationship Specialty Start Date End Date Devika Cummins MD [address] [place] [address] PCP - General EMERGENCY MEDICINE 05/17/24
--- OUTSIDE RECORDS SUMMARY | 2024-09-15 23:57 | XMS_ITS | Encounter Summary ---
Author Organization [facility] Address [address] [place] [phone] Phone Care Team Providers Care Building Code Administrator Name Role Phone Devika Cummins MD Primary Care Provider [phone] Encounter Details Date Type Department Care Team (Late st Contact Info) Description 04/24/2021 Office Communication [facility] [address] [address] Ben Resendiz DO [address] [place] [address] Social History Tobacco Use Types Packs/Day [...] Vasquez CMA - 04/24/2021 12:17 PM CERTIFIED FINANCIAL PLANNER Please call pt about Ultrasound results are in media * Telephone Encounter - Brittany Sanders - 04/24/2021 11:25 AM CST pT called and asked if someone could call her and give her a update about her ultrasound. documented in this encounter Plan of Treatment Upcoming Encounters Date Type Department Care Team (Late st Contact Info) Description 11/01/2024 1:30 PM CDT Office Visit [facility] [address] [facility] [address] [place] [address] Ben Resendiz DO [address] [address] documented as of this encounter Visit Diagnoses Not on filedocumented in this encounter Care Teams Building Code Administrator Relationship Specialty Start Date End Date Devika Cummins MD [address] [place] [phone] PCP - General Family Medicine 07/26/24 documented as of this encounter
--- OUTSIDE RECORDS SUMMARY | 2024-09-15 23:58 | XMS_ITS | Clinical Summary ---
Author Organization [email or web address] Address [address] [place] [address] Care Team Providers Care Oracle Database Architect Name Role Phone Devika Cummins MD Primary Care Provider [phone] Source Comments [facility],non-owned Affiliates and Associated Physician Practices is amultiple site organization consisting of ambulatory clinics and hospital sitesin [place], [place], [place] and [place]. This disclosure is being madepursuant to the Care Everywhere program and may not contain all information available regarding this patient. Last updated 18.[email or web address] Allergies Active Allergy Reactions Criticality Noted Date [...] Office Visit [facility] - Endocrinology [address] [place] [address], [place] [address] Sohail Blount MD [address] [place] [address] [place] [phone] Health Maintenance Due Date Last Done Comments [...] age to complete this topic Care Teams Oracle Database Architect Relationship Specialty Start Date End Date Devika Cummins MD [address] [place] [address] PCP - General Emergency Medicine 01/04/24
--- OUTSIDE RECORDS SUMMARY | 2024-09-15 23:58 | XMS_ITS | Clinical Summary ---
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
--- OUTSIDE RECORDS SUMMARY | 2024-09-15 23:58 | XMS_ITS | Referral Summary ---
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
--- NOTE | 2024-09-16 00:09 | ED.ABDPAIN ---
HPI - Abdominal Pain General Chief Complaint: Abdominal Pain Stated Complaint: abd pain Time Seen by Provider: 09/15/24 23:43 History of Present Illness HPI narrative: 49-year-old female with history of bipolar disorder, COPD, gastroparesis, history of umbilical hernia surgery with mesh approximate 2012. Patient also has a history of strictures requiring esophageal EGD and dilation. Patient presents to the emergency room today with 3 weeks of abdominal pain around her umbilicus. She states that it feels like it is her hernia acting up. Endorses nausea vomiting but this is not new for her. She states she has always nauseous. Denies any fever, chills, chest pain or back pain. No shortness of breath. She was otherwise in her normal state of health. No trauma or recent injuries. She states that symptoms have been constant for 3 weeks and she has been to several other facility/emergency departments and discharged after no findings. Related Data Allergies Allergy/AdvReac Type Severity Reaction Status Date / Time aspirin Allergy Unknown swelling, Verified 09/15/24 23:27 hives Penicillins Allergy Unknown swelling, Verified 09/15/24 23:27 hives Review of Systems Review of Systems: As [facility] Family History Family History Mother Depression Family history of chronic obstructive pulmonary disease Sibling Depression Father Hypertension Social History Social History Smoking status: Heavy tobacco smoker Alcohol intake: never Exam Narrative: GENERAL: [Well-appearing, well-nourished, and in no acute distress.] HEAD: [Normocephalic, atraumatic.] EYES: [PERRLA and EOMI.] ENT: Nares clear, no rhinorrhea or epistaxis. Mucous membranes moist. NECK: Supple. CHEST: [Clear to auscultation. No respiratory distress.] HEART: [Regular rate and rhythm]. No murmur heard. [Normal peripheral pulses.] ABDOMEN: Protuberant, umbilical hernia reducible at bedside, no overlying skin discoloration, tender on the umbilical hernia, [No rigidity or guarding] previous abdominal surgical scars EXTREMITIES: Normal range of motion. [No edema.] SKIN: Warm, dry, no rash. NEURO: [No focal deficits]. Alert and oriented [x3.] PSYCH: [Normal mood and affect.] Course Vital Signs Vital signs: Vital Signs Temperature 36.5 C 09/15/24 23:29 Pulse Rate 99 09/15/24 23:29 Respiratory Rate 17 09/15/24 23:29 Blood Pressure 115/58 L 09/15/24 23:29 Pulse Oximetry 95 09/15/24 23:29 Oxygen Delivery Room Air 09/15/24 23:29 Temperature 36.6 C 09/16/24 01:08 Pulse Rate 81 09/16/24 02:58 Respiratory Rate 14 09/16/24 02:58 Blood Pressure 111/71 09/16/24 02:58 Pulse Oximetry 94 09/16/24 02:58 Oxygen Delivery Nasal Cannula 09/16/24 00:42 Oxygen Flow Rate 1 09/16/24 00:42 MDM - Abdominal Pain MDM Narrative Medical decision making narrative: 49-year-old female with a past medical history including bipolar disorder, COPD, umbilical hernia requiring mesh repair, history of multiple EGDs and dilation of the esophagus. Patient presents to the emergency room with 3 weeks of umbilical hernia pain. She states that she has an umbilical hernia that may have recurred but easily reducible. She states symptoms going on for last 3 weeks. Associated with some nausea but no present nausea vomiting. No shortness of breath, chest pain, back pain, fever, chills, urinary symptoms. She has a protuberant abdomen an umbilical hernia which is easily reducible at bedside. No overlying skin changes concerning for strangulation. Vital signs show normal blood pressure, normal temperature, saturating 95% on room air heart rate slightly tachycardic in the 100s. Patient does appear uncomfortable but not any distress. Suspicion presently is for an umbilical hernia causing symptoms for this is less likely bowel obstruction, partial bowel obstruction, strangulated or incarcerated hernia unlikely. Other intra-abdominal process could also be going on such as gastroenteritis, appendicitis, pancreatitis, gallbladder inflammation. A CT scan of the abdomen pelvis with IV contrast was ordered and she was given treatment medications including Dilaudid and Toradol, fluids, Zofran. Basic laboratory studies including CBC, CMP, lipase were ordered. Patient had improvement in her pain upon re-evaluation. Vital signs remained hemodynamically stable. Workup shows no leukocytosis. Anemia with hemoglobin 7.7 and microcytosis likely chronic iron deficiency anemia as she is not having any active bleeding or concerns. No recent anemia levels to compare to. Electrolytes were unremarkable. Creatinine 1.73. Patient provided fluids and this is on likely dehydration related as she has normal BUN. Normal glucose and LFTs. Negative lactic acid. Negative lipase. Urinalysis without any bacteria, negative test. CT scan shows stable ventral abdominal pelvic wall compared to prior scan in 2016. Postoperative changes are seen. Prominent fat in the umbilicus without any stranding or fluid. No bowel herniation, no other hernias identified. No bowel obstruction, no asymmetric bowel wall thickening. Minimal stool burden. No free fluid. Normal appendix. Hepatomegaly was seen but otherwise intra-abdominal organs are unremarkable. Patient is safe for discharge home at this time given unremarkable workup. She will follow-up with her regular doctor. Medical Records Attestation: I reviewed the patient's medical records. Lab Data Attestation: I reviewed the patient's lab results. 09/16/24 00:56 09/16/24 00:56 Labs: Lab Results 09/16/24 09/16/24 09/16/24 Range/Units 00:28 00:33 00:56 WBC 9.0 (4.5-10.0) K/mm3 RBC 4.08 L (4.2-5.4) M/mm3 Hgb 7.7 L (12.0-15.0) g/dL Hct 29.4 L (37.0-47.0) % MCV 72.1 L (80-100) fl MCH 18.9 L (26-34) pg MCHC 26.2 L (32-36) g/dl RDW 20.2 H (11.5-14.5) % Plt Count 131 L (150-375) k/mm3 MPV 10.6 H (7.4-10.4) fl Immature Gran % (Auto) 0.7 H (0-0.5) % Neut % (Auto) 67.2 (45.5-73.1) % Lymph % (Auto) 20.6 (18.3-44.2) % Winston % (Auto) 7.0 (2.6-8.5) % Eos % (Auto) 3.8 (0-4.4) % Baso % (Auto) 0.7 (0.2-1.2) % Lymph # (Auto) 1.85 (0.9-3.2) K/mm3 Winston # (Auto) 0.6 (0.1-0.6) K/mm3 Eos # (Auto) 0.3 (0-0.3) K/mm3 Baso # (Auto) 0.1 (0.0-0.1) K/mm3 Abs Immat Gran (auto) 0.06 H (0.00-0.031) K/mm3 Absolute Neuts (auto) 6.0 (1.3-6.7) K/mm3 Absolute Nucleated RBC 0.000 (0.0-0.012) K/mm3 Band Neutrophils % 0 (0-6) % Nucleated RBC % 0.0 (0.0-0.2) % Platelet Estimate Adequate (Adequate) % Immature Plt Fraction 13.0 H (0.9-11.2) % Hypochromasia 1+ Anisocytosis 1+ Microcytosis 1+ (NORMAL) Tear Drop Cells 1+ Ovalocytes 1+ Schistocytes None seen Sodium 134 L (137-145) mmol/L Potassium 4.0 (3.4-5.0) mmol/L Chloride 100 (98-107) mmol/L Carbon Dioxide 24 (22-30) mmol/L Anion Gap 10 (4-12) mmol/L BUN 17 (7-17) mg/dL Creatinine 1.73 H (0.7-1.0) mg/dL Estim Creat Clear Calc 44 ml/min Estimated GFR 32 L (59 - ) Glucose 96 (65-110) mg/dL Lactic Acid 1.4 (0.7-2.0) mmol/L Calcium 9.2 (8.4-10.2) mg/dL Total Bilirubin 0.4 (0.2-1.3) mg/dL AST 15 (14-36) U/L ALT 13 (6-35) U/L Alkaline Phosphatase 37 L (38-126) U/L Total Protein 7.0 (6.3-8.2) g/dL Albumin 4.2 (3.5-5.1) g/dL Lipase 64 (23-300) U/L Urine Color Yellow (Yellow) Urine Appearance Clear (Clear) Urine pH 6.5 (5.0-9.0) Ur Specific [employer] 1.007 (1.001-1.035) Urine Protein Negative (Negative) mg/dL Urine Glucose (UA) 2+ H (Negative) mg/dL Urine Ketones Negative (Negative) mg/dL Ur Blood (Man) Negative (Negative) Urine Nitrate Negative (Negative) Urine Bilirubin Negative (Negative) Urine Urobilinogen 0.2 (<2.0) mg/dL Leukocyte Esterase Rfl 1+ H (Negative) SHAAN/UL Urine RBC 0-2 (0-2) /hpf Urine WBC 6-10 H (0-3) /hpf Ur Squamous Epith Cells None seen (Few) /hpf Urine Bacteria None seen /hpf Urine Casts 0-2 POC Urine HCG, Qual Negative (Negative) Imaging Data Attestation: I personally reviewed and interpreted this imaging study as follows: My impression: No signs of bowel obstruction or strangulated hernia. CT scan confirmed by radiology without any acute intra-abdominal process. Discharge Plan Discharge Clinical Impression: Abdominal pain, Umbilical hernia without obstruction or gangrene, Anemia, Creatinine elevation Patient Disposition: Home, Self-Care Condition: Stable Instructions: Antibiotic Form, Abdominal Pain (ED) Additional Instructions: Your CT scan is reassuring. Your laboratory studies showed no significant concerns. You do have some evidence of chronic kidney disease as well as low hemoglobin levels but we do not have any recent laboratory studies to compare this to. Call your regular doctor for close follow-up visit. Return with any new or emergent concerns. We will send you home with some symptom controlling medications as needed. Patient Language: Unknown Prescriptions: New dicyclomine 20 mg tablet 20 mg PO TID PRN (Reason: abdominal pain) Qty: 20 0RF ondansetron 4 mg tablet,disintegrating 4 mg PO Q8H PRN (Reason: nausea and vomiting) Qty: 10 0RF Follow-up/Referrals: Placido,Devika Brown MD [Primary Care Provider] - Time of Disposition: 04:10
[2024-09-16] MEDS: LACTATED RINGERS 1,000 ML 999 ML IV CONT (00:13)
[2024-09-16] MEDS: KETOROLAC 15 MG/ML VIAL (*BKC) IV PUSH (00:14)
[2024-09-16] MEDS: METOCLOPRAMIDE HCL INJ 10 MG/2 ML VIAL IV PUSH (00:14)
[2024-09-16] MEDS: HYDROmorphone HCL INJ (*CRX) 1 MG/ML SYR 0.5 MG IV PUSH (00:15)
[2024-09-16 00:35] LABS: BEDSIDEPREGUCG Negative (Negative)
[2024-09-16 00:37] LABS: Add Urine Microscopic? YES; Appearance Urine Clear (Clear); Bacteria Urine None Seen /hpf; Bilirubin Urine Negative (Negative); Blood Urine Negative (Negative); Color Urine Yellow (Yellow); Glucose Urine UA 2+ mg/dL (Negative); Ketones Urine Negative (Negative); Leukocyte Esterase Ur 1+ LEU/UL (Negative); Nitrate Urine Negative (Negative); Non Pathogenic Casts 0-2; Protein Urine Negative (Negative); RBC Urine 0-2 /hpf (0-2); Specific Grav Ur 1.007 (1.001-1.035); Squamous Epithelial Cell Urine None Seen /hpf (Few); Urobilinogen Urine 0.2 mg/dL (<2.0); pH Urine 6.5 (5.0-9.0)
[2024-09-16 00:42] VITALS: O2SAT 92
[2024-09-16 01:04] LABS: Basophils Absolute Auto 0.1 K/mm3 (0.0-0.1); Basophils Percent Auto 0.7 % (0.2-1.2); Eosinophils Absolute Auto 0.3 K/mm3 (0-0.3); Eosinophils Percent Auto 3.8 % (0-4.4); Hematocrit 29.4 % (37.0-47.0); Hemoglobin 7.7 g/dL (12.0-15.0); Immature Granulocyte Absolute 0.06 K/mm3 (0.00-0.031); Immature Granulocyte Percent A 0.7 % (0-0.5); Lymphocytes Absolute Auto 1.85 K/mm3 (0.9-3.2); Lymphocytes Percent Auto 20.6 % (18.3-44.2); Mean Corpuscular HGB Conc 26.2 g/dl (32-36); Mean Corpuscular Hemoglobin 18.9 pg (26-34); Mean Corpuscular Volume 72.1 fl (80-100); Mean Platelet Volume 10.6 fl (7.4-10.4); Monocytes Absolute Auto 0.6 K/mm3 (0.1-0.6); Neutrophils Percent Auto 67.2 % (45.5-73.1); Platelet Count Result 131 k/mm3 (150-375); Red Blood Count 4.08 M/mm3 (4.2-5.4); Red Cell Distribution Width 20.2 % (11.5-14.5)
[2024-09-16 01:08] VITALS: BP 113/62; PULSE 99; RESP 23; TEMP 36.6; O2SAT 92
[2024-09-16 01:19] LABS: Alanine Aminotransferase 13 U/L (6-35); Albumin Level 4.2 g/dL (3.5-5.1); Alkaline Phosphatase 37 U/L (38-126); Anion Gap 10 mmol/L (4-12); Aspartate Amino Transferase 15 U/L (14-36); Bilirubin,Total 0.4 mg/dL (0.2-1.3); Blood Urea Nitrogen 17 mg/dL (7-17); Calcium 9.2 mg/dL (8.4-10.2); Carbon Dioxide 24 mmol/L (22-30); Chloride 100 mmol/L (98-107); Estimated CRCL calculation 44 ml/min; Estimated Glomerular Filt Rate 32; Glucose 96 mg/dL (65-110); Lipase 64 U/L (23-300); Sodium 134 mmol/L (137-145)
[2024-09-16 01:20] LABS: Lactic Acid Reflex 1.4 mmol/L (0.7-2.0)
[2024-09-16 01:32] LABS: Band Neutrophils Percent 0 % (0-6); Hypochromasia 1+; Platelet Estimate Adequate (Adequate)
[2024-09-16 01:33] LABS: Anisocytosis 1+; Microcytosis 1+ (NORMAL); Ovalocytes 1+; Schistocytes None Seen; Tear Drop Cells 1+
[2024-09-16 02:58] VITALS: BP 111/71; PULSE 81; RESP 14; O2SAT 94
== END 2024-09-16 04:17 | disposition home or self-care (01) ==
PROVIDERS: Emergency Provider Student in an Organized Health Care Education/Training Program; PCP Emergency Medicine
DX: K42.9 Umbilical hernia without obstruction or gangrene (principal); D64.9 Anemia, unspecified; R79.89 Other specified abnormal findings of blood chemistry; J44.9 Chronic obstructive pulmonary disease, unspecified; K31.84 Gastroparesis; F31.9 Bipolar disorder, unspecified; F17.200 Nicotine dependence, unspecified, uncomplicated
CPT/HCPCS: 36415; 74177; 80053; 81001; 81025; 83605; 83690; 85025; 85055; 87086; 96361; 96374; 96375; 99284; J1171; J1885; J2765; J7120; Q9967

== ENCOUNTER 2024-10-12 12:45 | Outpatient (CLI) | payer MEDICARE, MEDICAID, SELFPAY ==
--- OUTSIDE RECORDS SUMMARY | 2024-10-12 13:41 | XMS_ITS | Clinical Summary ---
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
--- OUTSIDE RECORDS SUMMARY | 2024-10-12 13:41 | XMS_ITS | Clinical Summary ---
Author Organization [facility] [employer] Address [address] [place] [address] Care Team Providers Care Log Operations Coordinator Name Role Phone Devika Cummins MD Primary Care Provider [phone] Source Comments [facility] [employer] [employer]non-owned Affiliates and Associated Physician Practices is amultiple site organization consisting of ambulatory clinics and hospital sitesin [place], [place], [place] and [place]. This disclosure is being madepursuant to the Care Everywhere program and may not contain all information available regarding this patient. Last updated 18.[facility] [employer] Allergies Active Allergy Reactions Criticality Noted Date Comments Aspirin 12/11/2016 Penicillins 12/11/2016 Medications * Be aware that medications may not be up to date on this document. Alwaysverify current medications with the patient. 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 Gender Identity Not on file Sexual Orientation [...] Office Visit [facility] - Endocrinology [address] [place] [address], [place] [address] Sohail Bluont MD [address] [place] [address] [place] [address] Health Maintenance Due Date Last Done Comments [...] 1996 COVID-19 VACCINE (2023-2 5 season) 2024 DEPRESSION SCREENING 06/15/2024 MEDICARE AWV CALENDAR YEAR 2024 INFLUENZA VACCINE (Season Ended) 2025 ZOSTER VACCINE (1 of 2) 2027 HIB [...] patient's age to complete this topic Insurance [facility] MEDICARE ADV [facility] MEDICAID Care Teams Log Operations Coordinator Relationship Specialty [place] [address] [place] [phone] PCP - General Emergency Medicine 01/04/24
--- OUTSIDE RECORDS SUMMARY | 2024-10-12 13:41 | XMS_ITS | Referral Summary ---
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
--- OUTSIDE RECORDS SUMMARY | 2024-10-12 13:41 | XMS_ITS | Encounter Summary ---
Author Organization [facility] Address [address] [place] [phone] Phone Care Team Providers Care Hedis Coordinator Name Role Phone Devika Cummins MD Primary Care Provider [phone] Encounter Details Date Type Department Care Team (Late st Contact Info) Description 04/24/2021 Office Communication [employer] [employer] [facility] [address] [address] Ben Resendiz DO [address] [place] [phone] Social History Tobacco Use Types Packs/Day [...] Anni Vasquez CMA - 04/24/2021 12:17 PM GRIEF COUNSELLOR Please call pt about Ultrasound results are in media * Telephone Encounter - Brittany Sanders - 04/24/2021 11:25 AM CST pT called and asked if someone could call her and give her a update about her ultrasound. documented in this encounter Plan of Treatment Upcoming Encounters Date Type Department Care Team (Late st Contact Info) Description 11/01/2024 1:30 PM CDT Office Visit [facility], [facility] [address] [facility] [address] [place] [address] Ben Resendiz DO [address] [phone] documented as of this encounter Visit Diagnoses Not on filedocumented in this encounter Care Teams Hedis Coordinator Relationship Specialty Start Date End Date Devika Cummins MD [address] [place] [phone] PCP - General Family Medicine 07/26/24 documented as of this encounter
--- OUTSIDE RECORDS SUMMARY | 2024-10-12 13:41 | XMS_ITS | Clinical Summary ---
Author Organization [facility] Address [address] [address] Care Team Providers Care Digital Retoucher Name Role Phone Devika Cummins MD Primary Care Provider [phone] Allergies Active Allergy Reactions Criticality Noted Date [...] night before labs are drawn. 1 tablet 06/18/2021 Active losartan (COZAAR) 50 MG tablet Take 1 tablet (50 mg total) by mouth every night 90 tablet 1 07/26/2024 Active chlorthalidone 25 MG tablet Take 0.5 tablets (12.5 mg total) by mouth 1 (one) time each day in the morning 45 tablet 1 08/24/2024 Active Encounters Date Type Department Care Team Description 08/24/2024 [facility]ill [facility] [address] [facility] [address] [place] [address] Anni Vasquez CMA 07/26/2024 1:15 PM PATENT LEGAL ASSISTANT Office Visit [facility] [address] [place] [address] [address] [place] [address] Ben Resendiz DO Stage 3 chronic kidney disease, not otherwise specified (HCC) (Primary Dx); Persistent proteinuria; Other Nate's syndrome (HCC); Hypertensive chronic kidney disease; Type 2 diabetes mellitus with diabetic chronic kidney disease (HCC); Pure hypercholesterolemia , not otherwise specified; Idiopathic gout, not otherwise specified; H/O: anemia - iron deficient 07/26/2024 Refill [facility] [address] [phone] Anni Vasquez CMA from Last 3 Months [...] Comments Blood Pressure 120/60 07/26/2024 2:00 PM PATENT LEGAL ASSISTANT Pulse 61 07/26/2024 2:00 PM PATENT LEGAL ASSISTANT Temperature 36.1 C (97 F) 07/26/2024 2:00 PM PATENT LEGAL ASSISTANT Respiratory Rate 18 07/26/2024 2:00 PM PATENT LEGAL ASSISTANT Oxygen Saturation 97% 07/26/2024 2:00 PM PATENT LEGAL ASSISTANT Inhaled Oxygen Concentration - - Weight 105 kg (231 lb 6.4 oz) 07/26/2024 2:00 PM PATENT LEGAL ASSISTANT Height 167.6 cm (5' 6 ) 06/18/2021 2:57 PM PATENT LEGAL ASSISTANT Body Mass Index 37.35 06/18/2021 2:57 PM PATENT LEGAL ASSISTANT Plan of Treatment Upcoming Encounters Date Type Department Care Team (Late st Contact Info) Description 11/01/2024 1:30 PM CDT Office Visit [facility] [address] [phone] Ben Resendiz, [address] [facility] [address] [place] [address] Health Maintenance Due Date Last Done Comments Hepatitis B Vaccine (1 of 3 - 19+ 3-dose series) 05/02 Pneumococcal Vaccine: Peds ( 0 to 5 Years) and At-Risk Patients (6 to 49 Years) (1 of 2 - PCV) 1996 Diabetes: Hemoglobin A1C 11/08/2020 Diabetes: Ophthalmology Exam 11/08/2020 Diabetes: Pedal Pulse Checked 11/08/2020 Diabetes: Sensory Foot Exam 11/08/2020 Diabetes: Visual Foot Exam 11/08/2020 Influenza Vaccine (Season Ended) 2025 Insurance Medicaid [place] UHC Medicare Care Teams Digital Retoucher Relationship Specialty Start Date End Date Devika Cummins MD [address] [place] [address] [place] [phone] PCP - General Family Medicine 07/26/24
--- OUTSIDE RECORDS SUMMARY | 2024-10-12 13:41 | XMS_ITS | CONTINUITY OF CARE DOCUMENT ---
Author Name zahraa vital Address Unknown Organization [facility] Address [address] [place] [address] Phone [phone] Care Team Providers Care Pipe Roller Name Role Phone Mandeep VILLANUEVA, Maria Luisa Unavailable HOPCLINTON BENNETTIE Unavailable [phone] HOPMARGO BENNETT Unavailable [phone] PROBLEMS Condition Status Date Provider Notes SVT active Yuli Kirby Shortness of breath active Tayari Kirby Palpitations active Yuli Kirby Wheezing active Yuli Kirby PVC's active Yuli Kirby PAC's active Yuli Kirby Sleep apnea active Maria Luisa Kaufman MD Bipolar disorder active Maria Luisa Kaufman MD Smoker active Maria Luisa Kaufman MD GERD active Maria Luisa Kaufman MD Preoperative cardiovascular examination for bariatriac surgery active Maria Luisa Kaufman MD Hyperlipidemia active Maria Luisa Kaufman MD Morbid obesity active Maria Luisa Kaufman MD Diabetes mellitus active Maria Luisa Kaufman MD HTN essential active Maria Luisa Kaufman MD ENCOUNTERS Date Type Provider Location Encounter Diag nosis 3 - 7 In-person encounter Office Visit Devyn Garza MD [facility] 4 - 4 In-person encounter Office Visit Devyn Garza MD [facility] PAC'sPVC'sWheezingPalpitationsShortne ss of breathSVT 7 - 7 In-person encounter Office Visit Maria Luisa Kaufman MD [place] HTN essentialDiabetes mellitusMorbid obesityHyperlipidemiaPreoperative cardiovascular examination for bariatriac surgeryGERDSmokerBipolar disorderSleep apnea VITAL SIGNS Date Observation Value Provider Body Mass Index (Ratio) 39.22 kg/m2 Taew on blood pressure, cuff size large Ke rri Gruenenfelder blood pressure, diastolic 80 mm[Hg] Ke rri [facility] blood pressure, systolic 138 mm[Hg] Zabrina ri Kalyanih[facility] oxygen saturation, oximetry 93 % Suri Kalyanihca [facility] respiratory rate E&M 16 /min Suri Leslie [facility] pulse rate 96 /min Suri Kalyanitor er weight E&M 243 [lb_av] Suri Evelynnenfe lder height E&M 66 [in_i] Suri Grnathennenfe lder Body Mass Index (Ratio) 40.51 kg/m2 [place] on blood pressure, resting No Dany ty [place] blood pressure, cuff size regular Kr isty [place] blood pressure, diastolic 80 mm[Hg] Kr isty [place] blood pressure, systolic 130 mm[Hg] Kri sty [place] pulse rate 104 /min Shantell Christa oxygen saturation, oximetry 96 % Shantell [place] respiratory rate E&M 19 /min Shantell [place] height E&M 66 [in_i] Shantell Christa weight E&M 251 [lb_av] Shantell [place] Body Mass Index (Ratio) 41.10 kg/m2 Saran Kaufman MD respiratory rate E&M 16 /min [facility] blood pressure, resting Yes [facility] blood pressure, diastolic 100 mm[Hg] To [facility] blood pressure, systolic 168 mm[Hg] Ton [facility] oxygen saturation, oximetry 97 % [facility] pulse rate 85 /min [facility] weight E&M 247 [lb_av] [facility] height E&M 65 [in_i] [facility] ALLERGIES Allergy Name Onset Date Reaction [...] Shantell Goodwin smoking, date started 1988 Shantell [place] smoking history, tot al pack/year 365 Shantell [place] smoking history, tot al pack/day 1 Shantell [place] cigarette use yes Shantell Goodwin smoking status [...] MD smoking history, tot al pack/year 365 [facility] smoking history, tot al pack/day 1 [facility] smoking, date started 1988 [facility] cigarette use yes [facility] smoking status Current every day smoker [facility] FAMILY HISTORY Family Member Condition Mother Family History of Di abetes: Mother Family History of De pression: INSURANCE PROVIDERS Payer name Policy type / Coverage type [place] red green party ID UHC MEDICARE COMPLETE HMO Other [id number] [facility] Medicaid 1 [id number] ADVANCE DIRECTIVES Name Date DISCUSSED - NO DECISION MADE TREATMENT PLAN Date Name Performer [id number],W,per PCP; A1C 7.8% Allie Torrez NP [id number],S,T he Patient was reencouraged to stop smoking. Allie Torrez NP [id number],S,weight loss e ncouraged. Allie Torrez NP [id number],S,Losartan 100 mg daily Allie Torrez NP [id number],B, Allie nguyen NP [id number],S, T he following medications were removed from the medication list: Atorvastatin 10 Mg Tablet (Atorvastatin) Her updated medication list for this problem includes: Atorvastatin 80 Mg Tablet (Atorvastatin) ..... Take 1 tablet by mouth at bedtime Zetia 10 Mg Tablet (Ezetimibe) ..... Take 1 tablet by mouth every day Gemfibrozil 600 Mg Tablet (Gemfibrozil) Allie Torrez NP [id number],S,holter monito r unremarkable Allie Torrez NP Electrophysiology:per PCP; A1C 7 .8% Allie Torrez NP Electrophysiology:Th e Patient was reencouraged to stop smoking. Allie Torrez NP Electrophysiology:weight loss en couraged. Allie Torrez NP Electrophysiology:Losartan 100 m g daily Allie Torrez NP Electrophysiology Allie dixon MANAGER OF MANUFACTURING Electrophysiology: T he following medications were removed [...] O rders: T obacco cessation counseling, 3-10minutes (01069) F VC - 16337 ([id number]) F RC - 20805 (68162) D LCO - 74532 ([id number]) Yuli Kirby Electrophysiology 14 :The patient is using CPAP on a regular basis. The patient has been benefiting from therapy and should continue use. Yuli Kirby Electrophysiology 14 : O rders: F VC - 76864 (85383) F RC - 07278 (30824) D LCO - 27106 (22210) Yuli Kirby Electrophysiology 14 : O rders: M onitor - Telemetry (Mobile Cardiac) ([id number]) Yuli Kirby Electrophysiology 14 : O rders: M onitor - Telemetry (Mobile Cardiac) ([id number]) Yuli Kofi Electrophysiology 14 : O rders: M onitor - Telemetry (Mobile Cardiac) ([id number]) Yuli Kirby Cardiology Maria Luisa Kaufman MD Cardiology Maria Luisa Kaufman MD Cardiology Maria Luisa Kaufman MD Cardiology Maria Luisa Kaufman MD Cardiology:Will obta in stress cardiolite before giving clearance for bariatric surgery. Maria Luisa Kaufman MD Cardiology Maria Luisa Kaufman MD Date Name LIPASE AMYLASE LIPID PANEL COMPREHENSIVE METABO LIC PANEL, W/EGFR Monitor - Telemetry (Mobile Cardiac) DLCO - 79712 FRC - 64858 FVC - 29127 Complete Echo Stress Exercise Card iolite HISTORY [...]
--- OUTSIDE RECORDS SUMMARY | 2024-10-12 13:41 | XMS_ITS | Clinical Summary ---
Author Organization [facility] Genoveva vance Mari[place]endal[place] Address [address] [place] [address] Care Team Providers Care Sports Director Name Role Phone Provider, Abstract Primary Care [...] 0 Active fluticasone propionate (FLONASE) 50 mcg/spray [place], Suspension nasal inhaler Administer in each nostril. [...] 19+ 3-dose series) 1996 HPV/Cotest (21-29) 1998 CERVICAL CANCER SCREENING 2007 HPV/Cotest (30-65) 2007 PAP SMEAR 2007 DIABETES HBA1C Q 6 MONTHS 04/17/20222021, 08/02/2021, 05/14/2021, Additional history exists FIT-DNA Q 3 years 2022 FIT/FOBT Q 1 year 2022 Flex Sig/CT Colonography Q 5 years 2022 BREAST CANCER SCREENING 06/11/2022 06/11/20 21, 06/11/2021, 10/19/2017, Additional history exists INFLUENZA VACCINE (#1) 2024 COLORECTAL SCREENING 12/31/2030 12/31/2020, 03/22/20 Colorectal Cancer Screening 12/31/2030 Insurance MEDICAID [place] MEDICARE PART A AND B Care Teams Sports Director Relationship Specialty Start Date End Date Provider, Abstract NO ADDRESS ON FILE PCP - General 11/20/20
--- OUTSIDE RECORDS SUMMARY | 2024-10-12 13:41 | XMS_ITS | Data Portability ---
Author Organization [facility] [employer], Main Office Address [address] [place] [address] Care Team Providers Care Power Saw Operator Name Role Phone SHITAL BAUTISTA Primary Care Provider SHITAL BAUTISTA Referring Provider SHITAL BAUTISTA Primary Care Provider [phone] Assessment Encounter Date Assessment Date Assessment LastModified by Organization Details LastModified Time 06/23/2023 06/23/2023 This note is dictated and transcribed by [employer] Fluency Direct Software. Process Architect variances may occur. Despite proofreading, typographical errors may occur. Occasional wrong-word or 'nbmgw-x-inad' substitutions may have occurred due to the inherent limitations of voice recording. Read the chart carefully and recognize, using context, where substitutions have occurred. [email or web address] Not available 06/30/2023 12:16:42 08/27/2023 08/27/2023 Assessment: Ex-nicotine smoke: / ppd 5898-1373 = 13.5 pack years Mod ACO Severe [...] 05/25/2024 05/25/2024 Assessment: Ex-nicotine smoke: 06/16 ppd 1307-9874 = 13.5 pack years Mod ACO Severe [...] remain at 12-15 cmH2O. Keep EPR +1 multimedia editor. Keep ramp off. Keep humidifier level at [...] further management. Follow-up: 9 months, February 2025 [facility] Not available 05/25/2024 15:20:00 Plan of Treatment Reminders Order Date Submit Date Provider Last Modified By Organization Details Last Modified Time Details Appointments Follow Up 2024 01:00P Elena De Luna MD Not available Not available Not available Lab vitamin B12, serum 2023 025 [email or web address] [facility] (Lab), [address] [place], [address], 05/25/2024 15:18:05 vitamin B12, serum [email or web address] [place] [address] (Lab), [address] [place], [address], 05/11/2024 10:04:42 Referral None recorded. Procedures None recorded. Surgeries None recorded. Imaging XR, foot, 3 or more view [address] ([facility]), [address], [place], [address], 07/27/2023 08:32:39 Medication Orders cyanocoba nusrat (vit B-12) 1,000 mcg tablet 2023 024 [facility], [address] [place] [address] , [address], [place], [place], [id number], 05/25/2024 15:18:17 albuterol sulfate HFA 90 mcg/actua tion aerosol inhaler 2023 024 [facility], [address] [place] [address] , [address], [place], [place], [id number], 05/25/2024 15:18:16 Advair HFA 230 mcg-21 mcg/actua tion aerosol inhaler 2023 024 [facility], [address] [place] [address] , [address], [place], [place], [id number], 05/25/2024 15:18:19 cyanocoba nusrat (vit B-12) 1,000 mcg tablet 2023 024 [facility], [address] [place] [address] , [address], [place], [place], [id number], 08/27/2023 14:28:47 albuterol sulfate HFA 90 mcg/actua tion aerosol inhaler 2023 024 [facility], [address] [place] [address] , [address], [place], [place], [id number], 08/27/2023 14:28:46 Symbicort 160 mcg-4.5 mcg/actua tion HFA aerosol inhaler [email or web address], [place], [place], [id number], 05/25/2024 15:11:44 Patient TargetsNo targets recorded. Patient Instructions Encounter Date Encounter Id Patient Instructions Last Modified By Organization Details Last Modified Time 08/19/2023 [id number] PT SX N/V APPEAR S TO BE EXACERBATED BY OZEMPIC. RECOMMEND TO TAKE ZOFRAN 4 MG SL EVERY 4-6 HRS ATC FOR THE NEXT 48 HRS POST HER OZEMPIC SHOT. F/U IN MTHS. [email or web address] Not available 08/19/2023 15:12:48 08/27/2023 [id number] complete PFT w/ post bronchodilator spirometry* [email or web address] Not available 05/18/2024 17:46:37 Reason for Referral None Reported. Results Created Date Observation Date Name Description Value Unit Range Abnormal Flag Note LastModifiedBy Organization Detail LastModifiedTime 07/17/19 24 04/06/2023 XR, foot, 3 or more view No observ ation record ed. [email or web address] [facility] () [address] [place], [address], 07/27/2023 08:32:39 Result Notes None recorded. Problems Name Problem SNOMED Code Status Onset Date Resolution Date Notes Provider Name and Address Organization Details Recorded Time Intermitt ent palpitati ons 485286222 Active 2021 Not Available [facility] 3 15:09:42 Chronic obstructi ve pulmonary disease 58028722 Completed Not Available [facility] 3 08:49:39 Bruxism 732147172 Active Not Available [facility] 3 15:09:42 Asthma 888794126 Active Not Available [facility] 3 15:09:42 Moderate chronic obstructi ve pulmonary disease 278731661 Active Not Available [facility] 3 15:09:42 Vitamin D deficienc y 68818411 Active 2021 Not Available [facility] 3 15:09:42 Depressiv e disorder 50068092 Active Not Available [facility] 3 15:09:42 Hypertens nickolas disorder 21826727 Active Not Available [facility] 3 15:09:42 Osteoarth ritis 715438799 Active Not Available [facility] 3 15:09:42 Umbilical hernia 119744832 Active Not Available [facility] 3 15:09:42 Periodic limb movement disorder 902369890 Active Not Available [facility] 3 15:09:42 History of polyp of colon 568494654 Active Not Available [facility] 3 15:09:42 Hyperlipi demia 22519121 Active Not Available [facility] 3 15:09:42 Carpal tunnel syndrome 95070542 Active Not Available [facility] 3 15:09:42 Allergic rhinitis 85460379 Active 2021 Not Available [facility] 3 15:09:42 Vitamin B12 deficienc y (non anemic) 93218808 Active 2021 Not Available [facility] 3 15:09:42 Gastropar esis due to type 2 diabetes mellitus 217964678 Active 2022 Not Available [facility] 3 15:09:42 Oropharyn geal dysphagia 10858809 Active 2022 Not Available [facility] 3 15:09:42 Obstructi ve sleep apnea syndrome 49109767 Active Not Available [facility] 3 15:09:42 Closed fracture of phalanx of foot 77556648 Active Not Available [facility] 3 15:09:42 Anxiety 95318939 Active 2023 Luci rios [facility] 4 14:21:07 Gout 68104959 Active 2023 Luci rios [facility] 4 14:22:14 Kidney disease 53813293 Active 2023 Luci rios [facility] 4 14:23:45 Obesity 100013124 Active 2023 Luci Chavez null, [facility] 4 14:23:53 Right Achilles tendiniti s 24061176700 9102 Active 2023 Chema Rapp, DPM [address] [facility], [facility] [address], [place], [address] , [facility] 4 14:43:50 Notes:Medical History: Depre ssion Hypogammaglobulinemia [...] EDWIN-BSO 1998 Some problems listed in Document: #[id number] could not be added to this patient's chart. Please review this document and add these problems to the patient's chart manually as needed. Problem Notes None recorded. Procedures Surgical History Date Name Laterality Status Provider Name and Address Organization Details Recorded Time Carpal tunnel surgery completed Not Available [facility] 08/13/2022 08:45:24 Revise ulnar nerve at elbow completed Not Available [facility] 08/13/2022 08:45:24 Endoscopy completed Not Available [facility] 0 08/13/2022 08:45:24 Colonoscopy completed Not Available [facility] 08/13/2022 08:45:24 Hernia Repair completed Not Available [facility] 08/13/2022 08:45:24 Hysterectomy completed Not Available [facility] 08/13/2022 08:45:24 nerve conduction study completed Not Available [facility] 08/13/2022 08:45:24 Imaging Results Imaging Date Name Status LastModified by Organiz ation Details LastModified Time 04/06/2023 XR, foot, 3 or more view completed [email or web address] () [address] [place], [address], 07/27/2023 08:32:39 Procedure Notes None recorded. Medical Equipment None Reported. Allergies Allergen ID Allergen Name Allergen Category Reaction Reaction Severity Criticality Documentation Date Start Date Code Code System Note Provider Name and Address Organization Details Recorded Time Product containin g penicilli n (product) medicatio n Not available Not available Not available 08/13/2022 37023 8001 SNOMED Not Available [facility] 3 08:54:27 aspirin medicatio n Not available Not available Not available 08/13/2022 1191 RxNorm Not Available [facility] 3 08:54:27 Medications Name Sig Start Date [...] completed Not Available Not Available Not Available [employer] Ultra Test strips USE TO CHECK BLOOD [...] % 114 mm[Hg] 68 mm[Hg] Tere Ramos [facility] 4 14:06:00 Date Recorded Body mass index (BMI) Body weight Provider Name and Address Organization Details Last Updated DateTime 06/23/2023 38.7 kg/m2 656895.17 g Luci Chavez [facility] [employer] 06/23/2023 14:17:59 Date Recorded Body height Body mass index (BMI) Body weight Heart rate Respiratory rate Body temperature Oxygen saturation Oxygen saturation in Arterial blood by Pulse oximetry Systolic blood pressure Diastolic blood pressure Provider Name and Address Organization Details Last Updated DateTime 4 167.64 cm 38.7 kg/m2 356402. 17 g 91 /min 14 /min 98.4 [degF] 98 % 98 % 114 mm[Hg] 68 mm[Hg] Adriana Garnett [facility] [employer] 4 14:12:42 Date Recorded Body height Body mass index (BMI) Body weight Heart rate Oxygen saturation Oxygen saturation in Arterial blood by Pulse oximetry Systolic blood pressure Diastolic blood pressure Provider Name and Address Organization Details Last Updated DateTime 4 167.64 cm 38.7 kg/m2 346856. 17 g 90 /min 99 % 99 % 112 mm[Hg] 70 mm[Hg] GRETA Salvador [facility] [employer] 4 14:20:27 Date Recorded Body height Body mass index (BMI) Body weight Body temperature Systolic blood pressure Diastolic blood pressure Provider Name and Address Organization Details Last Updated DateTime 4 167.64 cm 38.4 kg/m2 346080. 98 g 98.3 [degF] 124 mm[Hg] 66 mm[Hg] Amaris Tobias MA [place] [facility] [employer] 4 14:08:15 Date Recorded Heart rate Oxygen saturation Oxygen saturation in Arterial blood by Pulse oximetry Heart rate Respiratory rate Provider Name and Address Organization Details Last Updated DateTime 4 99 /min 94 % 94 % 99 /min 15 /min Elver De Luna MD [address], [place], [address] , [facility] [employer] 4 14:36:16 Date Recorded Body height Body mass index (BMI) Body weight Body temperature Heart rate Systolic blood pressure Diastolic blood pressure Provider Name and Address Organization Details Last Updated DateTime 4 167.64 cm 35.6 kg/m2 319149. 2 g 98.3 [degF] 79 /min 118 mm[Hg] 60 mm[Hg] Amaris Tobias MA [facility] [employer] 4 14:56:40 Date Recorded Oxygen saturation Oxygen saturation in Arterial blood by Pulse oximetry Heart rate Respiratory rate Provider Name and Address Organization Details Last Updated DateTime 05/25/2024 95 % 95 % 79 /min 14 /min Elver De Luna MD [address], [place], [address] , [place] [facility] [employer] 4 15:05:47 Social History Question Answer Notes LastModified by Organization Details LastModified Time Tobacco Smoking Status Former Smoker quit 01/2022 Luci rios, [facility] [employer] 06/23/2023 13:58:54 Do You Have An Advance Directive? No [id number].[id number] [id number] Information not available 08/13/2022 What Is Your Level Of Alcohol Consumption? Occasional Information not available 06/23/2023 What Is Your Level Of Caffeine Consumption? Moderate MIGRATION.0301 [id number] Information not available 08/13/2022 How Much Tobacco Do You Chew? None MIGRATION.0301 [id number] Information not available 08/13/2022 In The 14 [...] Of Diet Are You Following? REGULAR MIGRATION.0301 [id number] Information not available 08/13/2022 Which Illicit Or [...] Do You Have A Medical Power Of Stope Miner? No Information not available 06/23/2023 Do You Have Moisture Problems In Your Home? No Information not available 06/23/2023 What Was The Date Of Your Most Recent Tobacco Screening? 05/25/2024 Information not available 05/25/2024 Do You Have Any Pets? Yes Information not available 06/23/2023 What Is Your Relationship Status? Single MIGRATION.0301 [id number] Information not available 08/13/2022 Do You Use [...] Smokeless Tobacco? Never Used Smokeless Tobacco MIGRATION.0301 [id number] Information not available 08/13/2022 Are There Any Smokers In Your House? No Information not available 06/23/2023 How Much Tobacco Do You Smoke? No [email or web address] Information not available 05/28/2023 Do You Feel Stressed (tense, Restless, Nervous, Or Anxious, Or Unable To Sleep At Night)? [id number] Information not available 06/23/2023 Do You Use [...] Time What is your exercise level? Occasional [id number] Information not available 08/13/2022 Mental Status None recorded. Family History Relationship Description Onset Age of this Age Resolved Age Notes LastModified by Organization Details LastModified Time Unspecified Relation Mental disorder [id number] Not available 08/13/2022 08:45:27 Unspecified Relation Family [...] available 0 08/19/2023 14:19:50 Maternal Grandmother Asthma MIGRATION.522 [id number] Not available 08/13/2022 08:45:27 Maternal Grandfather Diabetes mellitus MIGRATION.094 [id number] Not available 08/13/2022 08:45:27 Father Diabetes mellitus MIGRATION.417 [id number] Not available 08/13/2022 08:45:27 Brother Asthma MIGRATION.162 [id number] Not available 08/13/2022 08:45:27 Sister Asthma MIGRATION.269 [id number] Not available 08/13/2022 08:45:27 Mother Asthma MIGRATION.951 [id number] Not available 08/13/2022 08:45:27 Mother Diabetes mellitus Not available 2023 14:25:11 Mother Arthritis [email or web address] Not available 08/19/2023 14:19:50 Father Arthritis [email or web address] Not available 08/19/2023 14:19:50 Father Heart disease Not available 2023 14:26:54 Medical History Condition Response ARTHRITIS Y HEADACHES/MIGRAINES Y GI PROBLEMS Y KIDNEY DISEASE Y DIABETES, TYPE Y ALLERGIES/HAYFEVER Y LUNG DISEASE/DISORDER Y HYPERTENSION Y HIGH CHOLESTEROL / HYPERLIPIDEMIA Y ANXIETY DISORDER Y OBESITY Y BLOOD CLOTS Y GERD/NAUSEA Y PULMONARY DISEASE Y GOUT Y BOWEL PROBLEMS Y BACK / NECK PROBLEMS Y DEPRESSION (INCLUDING POST ) Y Gynecological HistoryNo gynecological history recorded. Obstetrics History GPAL:G 0 P 0 0 0 0 Past Encounters Encounter ID Performer Location Encounter Start Date Encounter Closed Date Diagnosis/Indication Diagnosis SNOMED-CT Code Diagnosis ICD10 Code Diagnosis Note [id number] _ATHENA_M IGRATION_ DEFAULT_1 _1 , 10/03/2020 00:00:00 10/03/2020 17:20:06 [id number] [facility] [address] [address] 10/19/2020 00:00:00 10/19/2020 17:23:14 [id number] [facility] [place] [address] [facility] [address] [address] 10/26/2020 00:00:00 10/26/2020 16:35:23 [id number] _ATHENA_M IGRATION_ DEFAULT_1 _1 , 10/31/2020 00:00:00 10/31/2020 14:41:44 [id number] [facility] [address] [address] 11/23/2020 00:00:00 11/23/2020 17:08:20 [id number] _ATHENA_M IGRATION_ DEFAULT_1 _1 , 12/05/2020 00:00:00 12/05/2020 14:53:50 [id number] [facility] [address] [address] 12/06/2020 00:00:00 12/06/2020 16:02:03 [id number] [facility] General Surgery [address] [place] [address], [address] [address] 12/11/2020 00:00:00 12/11/2020 13:55:59 [id number] [facility] Internal Med [address], [address] [address] 02/01/2021 00:00:00 02/01/2021 20:54:22 [id number] [facility] General Surgery [address] [place] [address], [address] [address] 03/28/2021 00:00:00 03/28/2021 15:17:18 [id number] [facility] Pulmonolo [address] [address] 04/23/2021 00:00:00 05/14/2021 14:24:18 [id number] [facility] [address], [address] [address] 05/14/2021 00:00:00 05/14/2021 16:37:57 [id number] [facility] General Surgery [address] [place] [address], [address] [address] 06/18/2021 00:00:00 06/18/2021 13:43:46 [id number] [facility] [address], [address] [address] 06/24/2021 00:00:00 06/24/2021 14:37:34 [id number] [facility] General Surgery [address] [place] [address], [address] [address] 07/09/2021 00:00:00 07/11/2021 12:59:45 [id number] [facility] [address], [address] [address] 07/30/2021 00:00:00 07/30/2021 21:13:54 [id number] [facility] General Surgery [address] [place] [address], [address] [address] 08/13/2021 00:00:00 08/15/2021 14:46:26 [id number] [facility] [address], [address] [address] 08/19/2021 00:00:00 08/19/2021 16:18:56 [id number] _ATHENA_M IGRATION_ DEFAULT_1 _1 , 09/26/2021 00:00:00 09/26/2021 16:22:32 [id number] [facility] [address], [address] [address] 10/15/2021 00:00:00 10/15/2021 17:17:06 [id number] [facility] [address] [address] 03/25/2022 00:00:00 03/25/2022 15:20:54 [id number] [facility] General Surgery [address] [place] [address], [address] [address] 08/06/2022 00:00:00 08/06/2022 14:46:25 [id number] Karen Salas MD [facility] General Surgery [address] [place] [address], [address] [address] 03/18/2023 10:59:29 03/18/2023 11:28:51 Gastroparesis due to type 2 diabetes mellitus 035062470 E11.43 Nausea and vomiting 1692 1999 R11.2 TRY NON CRYSTALLIZ ED ANAHI [id number] Elver De Luna MD [facility] Pulmonolo gy [place] [address] [place] [address] [address] [place] [address] 05/28/2023 15:03:41 06/01/2023 09:09:47 Obstructive sleep apnea syndrome 89948656 G47.33 Moderate c hronic obstructive pulmonary disease 962572239 J44.9 Vitamin B1 2 deficiency (non anemic) 09488420 E53.8 [id number] Chema Rapp DPM [facility] Podiatry [place] [address] [place] [address] 06/23/2023 13:56:31 06/30/2023 13:48:37 Pain in right heel 3012444741 933984 M79.671 x-rays reviewed 04/06/2023 update new x-raysoffl oading Achillesre commend Achilles heel sleevefoll ow-up in 3-4 weeks Right Achi lles tendinitis 8406158360 11076 M76.61 rice therapystr etching and icing instructio ns reviewed Ex-cigarette smoker 2810 36173 Z87.891 recommend discontinu e smokingsid e effects of smoking reviewed with the patient Morbid obesity 593041765 E66.01 recommend weight loss [id number] Chema Rapp DPM [facility] Podiatry [place] [address] [place] [address] 07/21/2023 14:08:00 07/28/2023 14:48:27 Right Achilles tendinitis 6971423808 67849 M76.61 rice therapyrx physical therapystr etching and icing instructio ns reviewedfo llow up in 7 weekspt didnt get new xrays [id number] Karen Salas MD [facility] General Surgery [address] [place] [address] [address] [place] [address] 08/19/2023 14:19:42 08/19/2023 14:45:04 Nausea and vomiting 18388493 R11.2 TAKE ZOFRAN Q 4 HRS X 48 HR POST OZEMPIC SHOT . Gastropare sis due to type 2 diabetes mellitus 038648886 E11.43 CONT REGLAN /ZOFRAN [id number] Elver De Luna MD [facility] [address] 08/27/2023 13:57:25 08/28/2023 09:06:40 Obstructive sleep apnea syndrome 73307963 G47.33 Moderate c hronic obstructive pulmonary disease 466367638 J44.9 Vitamin B1 2 deficiency (non anemic) 53563586 E53.8 [id number] MD MERVIN [facility] [place] [address] 05/25/2024 14:34:42 05/25/2024 16:33:50 Obstructive sleep apnea syndrome 21031529 G47.33 Moderate c hronic obstructive pulmonary disease 929749771 J44.9 Vitamin B1 2 deficiency (non anemic) 86879494 E53.8 Health Concerns Section Related Observation LastModified by Organization Detai ls LastModified Time None Recorded Concern Status LastModified by Organization Details LastModified Time None Recorded Advance Directives Directive N: Payers Encounter Date Sequence Insurance Name Policy Number Policy Vu Covered Member ID Vu Member ID Guarantor Name 06/23/2023 2 [facility] (MEDICAID REPLACEMENT - [facility] [id number] Yumi A White [id number] Yumi A White 06/23/2023 1 [facility] (MEDICARE REPLACEMENT/AD VANTAGE - PPO) [id number] Yumi A White [id number] Yumi A White 07/21/2023 2 [facility] (MEDICAID REPLACEMENT - O) [id number] Yumi A White [id number] Yumi A White 07/21/2023 1 [facility] (MEDICARE REPLACEMENT/AD VANTAGE - PPO) [id number] Yumi A White [id number] Yumi A White 08/19/2023 2 [facility] (MEDICAID REPLACEMENT - O) [id number] Yumi A White [id number] Yumi A White 08/19/2023 1 [facility] (MEDICARE REPLACEMENT/AD VANTAGE - PPO) [id number] Yumi Null White [id number] Yumi Null White 08/27/2023 2 [facility] (MEDICAID REPLACEMENT - HMO) [id number] Yumi Null White [id number] Yumi Null White 08/27/2023 1 [facility] (MEDICARE REPLACEMENT/AD VANTAGE - PPO) [id number] Yumi Chaka White [id number] Yumi Null White 05/25/2024 1 [facility] (MEDICARE REPLACEMENT/AD VANTAGE - PPO) [id number] Yumi Null White [id number] Yumi Null White 05/25/2024 2 [place] [facility] Yumi Null White [id number] Yumi Martinez Notes Date Note Type Note Provider Name [...] does feel better. Chema Rapp, TONNY [address] [facility], [facility] [address], [place], [address], [place] [facility] [facility] [employer] 06/30/2023 12:18:16 07/21/2023 text/html Your patient is [...] Rapp DPM [address], [place], [address], [employer] 07/21/2023 14:29:58 08/19/2023 text/html YUMI WAS SEEN [...] Salas MD [address], [address], [place], [address], [employer] 08/19/2023 15:13:47 08/27/2023 text/html Primary care/Ref erring provider: BEBO Rodriguez-CPatient is here to go over her asthma/COPD/HOLLAND management.Initial development of shortness of breath: 2015Duration of shortness of breath: 9 yearsCondition of shortness of breath: stableTiming of shortness of breath: night timeFrequency: up to 3 times a weekLimits activities: yesAggravating factors: walking, lifting heavy thingsAlleviating factors: restModified Medical Research Dewitt (mMRC) Dyspnea Scale - Grade 2Grade 0 [...] noDysphagia: noEdema: noEnvironmental exposures:Nicotine smoke: 06/16 ppd 8134-5496 = 13.5 pack yearsPaint: noDye: noDust mites: [...] chance of dozing. Elver De Luna MD [address] [place] [address], [place], [address], [place] [facility] 08/27/2023 14:37:17 05/25/2024 text/html Primary care/Ref erring provider: Mary Hopper, [employer] UNDERWRITER-CPatient is here to go over her asthma/COPD/HOLLAND management.Initial development of shortness of breath: 2015Duration of shortness of breath: 9 yearsCondition of shortness of breath: stableTiming of shortness of breath: night timeFrequency: up to 3 times a weekLimits activities: yesAggravating factors: walking, lifting heavy thingsAlleviating factors: restModified Medical Research Dewitt (mMRC) Dyspnea Scale - Grade 2Grade 0 [...] noDysphagia: noEdema: noEnvironmental exposures:Nicotine smoke: 1/2 ppd 2486-6534 = 13.5 pack yearsPaint: noDye: noDust mites: [...] chance of dozing. Elver De Luna MD [address] [place] [address], [address], [place] [facility] 05/25/2024 15:23:07 OBGyn Episode No OBEpisode recorded.
--- OUTSIDE RECORDS SUMMARY | 2024-10-12 13:41 | XMS_ITS | Clinical Summary ---
Author Organization [facility] Address [facility] [place] [address] Care Team Providers Care Wind Field Manager Name Role Phone Devika Cummins MD Primary Care Provider [phone] Social History Tobacco Use Types Packs/Day Years [...] Description 10/18/2024 11:00 AM CDT Office Visit [facility]is[facility]ty [facility] - [facility] [address] [facility], [address] [place] [address] Alejandro Paulino MD [address] [place] [address] Health Maintenance Due Date Last Done Comments [...] Vaccine (2023-2 5 season) 2024 PHQ-2 (Physician [place]) 06/15/2024 Meningococcal B Vaccine Aged Out No l onger eligible based on patient's age to complete this topic Meningococcal Vaccine Aged Out No william josephine eligible based on patient's age to complete this topic Pneumococcal Vaccine: Pediat rics (0 to 5 Years) and At-Risk Patients (6 to 49 Years) Aged Out No longer eligible b ased on patient's age to complete this topic RSV Immunizations Under 20 Months Aged Out No longer eligible based on patient's age to complete this topic Insurance [facility] [place] [address] Care Teams Wind Field Manager Relationship Specialty Start Date End Date Devika Cummins MD [address] [place] [phone] PCP - General EMERGENCY MEDICINE 05/17/24
--- NOTE | 2024-10-12 16:02 | P.PCNPFT_ITS ---
PFT Procedure Performed PFT Procedure Performed Spirometry with Pre/Post Bronchodilator Plethysmography (Lung Vol) Diffusing Cap (DLCO) Flow Vol Loop PFT Interpretation This is a pulmonary function test with pre and post-bronchodilator spirometry, plethysmography and diffusing capacity. The test was performed and results interpreted in accordance with the 2019 and 2005 ATS/ERS Task Force guidelines respectively using the Global Lung Function Initiative-2012 reference equations. Patient demonstrated good effort and cooperation. Reproducibility criteria were met. The quality of the pre bronchodilator spirometry maneuver was Grade A and post bronchodilator spirometry maneuver was Grade B. Findings: Spirometry: There is decreased maximal expiratory airflow at all lung volumes. The contour the inspiratory flow tracing is normal. The pre bronchodilator FVC is 2.75 L, 75% predicted. The pre bronchodilator FEV1 is 1.53 L, 50% predicted. The pre bronchodilator FEV1: FVC ratio is 56%. The post bronchodilator FVC is 2.84 L, representing a 3% increase. The post bronchodilator FEV1 is 1.69 L, re presenting an 11% increase. The post bronchodilator FEV1: FVC ratio 60%. Plethysmography: The total lung capacity is 5.44 L, 101% predicted. The functional residual capacity is 3.03 L, 101% predicted. The residual volume is 2.59 L, 141% predicted. The residual volume: Total lung capacity ratio is 48%. Diffusing capacity: The diffusing capacity unadjusted for hemoglobin and carboxyhemoglobin is 15.1, 63% predicted. The diffusing capacity adjusted for alveolar volume is 3.55, 78% predicted. Impression: There is a moderately severe obstructive abnormality. There is no significant improvement after inhaling a single dose of albuterol. The increase in residual volume to total lung volume ratio is consistent with hyperinflation from an obstructive abnormality. The diffusing capacity unadjusted for hemoglobin and carboxyhemoglobin is mildly decreased and normalizes when adjusted for alveolar volume. There are no prior studies for comparison
== END 2024-10-12 12:46 | disposition home or self-care (01) ==
PROVIDERS: PCP Emergency Medicine; Visit Provider Internal Medicine Pulmonary Disease
DX: J44.9 Chronic obstructive pulmonary disease, unspecified (principal); R94.2 Abnormal results of pulmonary function studies
CPT/HCPCS: 94060; 94726; 94729

== ENCOUNTER 2024-12-22 15:26 | Outpatient (CLI) | payer MEDICARE, MEDICAID, SELFPAY ==
--- OUTSIDE RECORDS SUMMARY | 2024-12-22 15:31 | XMS_ITS | Clinical Summary ---
Author Organization [facility] [employer] Address [address] [place] [address] Care Team Providers Care Senior Manager [employer] Name Role Phone Devika Cummins MD Primary Care Provider [phone] Source Comments [facility] [employer],non-owned Affiliates and Associated Physician Practices is amultiple site organization consisting of ambulatory clinics and hospital sitesin [place], [place], [place] and [place]. This disclosure is being madepursuant to the Care Everywhere program and may not contain all information available regarding this patient. Last updated 18.[facility] [employer] Allergies Active Allergy Reactions Criticality Noted Date [...] Encounters Date Type Department Care Team Description 12/05/2024 Travel from Last 3 Months Social History Tobacco Use Types Packs/Day Years Used Date Smoking Tobacco: Every Day Smokeless Tobacco: Never Comments Unknown Sex and Gender Information Value Date Recorded Sex Assigned at Not on file Legal Sex Female 9:24 PM GAS CHARGER Gender Identity Not on file Sexual Orientation [...] 2:39 PM CDT Height 167.6 cm (5' 6) 12/11/2016 2:39 PM CDT Body Mass Index 37.93 12/11/2016 2:39 PM CDT Plan of Treatment Upcoming Encounters Date Type Department Care Team (Late st Contact Info) Description 04/18/2025 1:20 PM GAS CHARGER Office Visit [facility] - Endocrinology [address] [place] [address], [place] [phone] Sohail Blount MD [address] [place] [address] [place] [address] Health Maintenance Due Date Last Done Comments COLOGUARD (AGES 45-75) - COL ON CA SCREENING 1977 COLON MONITORING 1977 COLONOSCOPY - COLON CA SCREENING 1977 CT COLONOGRAPHY - COLON CA SCREENING 1977 Colorectal Cancer Screening 1977 FIT - COLON CA SCREENING 1977 FLEX SIG - COLON CA SCREENING 1977 LIPID TESTING 1977 MAMMOGRAM 1977 HIV SCREENING 1992 HEPATITIS C SCREENING 04/28/1995 DTAP/TDAP/TD VACCINES (1 - Tdap) 1996 HEPATITIS B VACCINE (1 of 3 - 19+ 3-dose series) 1996 PNEUMOCOCCAL VACCINE (1 of 2 - PCV) 1996 PAP SMEAR 1998 COVID-19 VACCINE (2023-2 5 season) 2024 DEPRESSION [...] patient's age to complete this topic Insurance [facility] MEDICARE [facility] MEDICAID Care Teams Senior Manager [employer] Relationship Specialty [place] [address] [place] [phone] PCP - General Emergency Medicine 01/04/24
--- OUTSIDE RECORDS SUMMARY | 2024-12-22 15:31 | XMS_ITS | Clinical Summary ---
Author Organization [facility] Facility Address [address] [address] Care Team Providers Care Attendant Arcade Name Role Phone Devika Cummins MD Primary Care Provider [phone] Allergies Active Allergy Reactions Criticality Noted Date [...] the morning 45 tablet 1 08/24/2024 Active Social History Tobacco Use Types Packs/Day Years [...] Comments Blood Pressure 120/60 07/26/2024 2:00 PM HOCKEY INSTRUCTOR Pulse 61 07/26/2024 2:00 PM HOCKEY INSTRUCTOR Temperature 36.1 C (97 F) 07/26/2024 2:00 PM HOCKEY INSTRUCTOR Respiratory Rate 18 07/26/2024 2:00 PM HOCKEY INSTRUCTOR Oxygen Saturation 97% 07/26/2024 2:00 PM HOCKEY INSTRUCTOR Inhaled Oxygen Concentration - - Weight 105 kg (231 lb 6.4 oz) 07/26/2024 2:00 PM HOCKEY INSTRUCTOR Height 167.6 cm (5' 6) 06/18/2021 2:57 PM HOCKEY INSTRUCTOR Body Mass Index 37.35 06/18/2021 2:57 PM HOCKEY INSTRUCTOR Plan of Treatment Upcoming Encounters Date Type Department Care Team (Late st Contact Info) Description 12/27/2024 2:15 PM CDT Office Visit [facility] Care, [facility] [address] [facility] [address] [place] [address] Ben Resendiz DO [address] [facility] [address] [place] [address] Health Maintenance Due Date Last [...] Visual Foot Exam 11/08/2020 Influenza Vaccine (#1) 2025 Insurance Medicaid [place] [facility] Medicare Care Teams Attendant Arcade Relationship Specialty Start Date End Date Devika Cummins MD [address] [place] [address] PCP - General Family Medicine 07/26/24
--- OUTSIDE RECORDS SUMMARY | 2024-12-22 15:31 | XMS_ITS | Clinical Summary ---
Author Organization [facility] [employer] Address [address] [place] [address] Care Team Providers Care Poultry Pinner Name Role Phone Provider, Abstract Primary Care [...] 0 Active fluticasone propionate (FLONASE) 50 mcg/spray Morse, Suspension nasal inhaler Administer in each nostril. [...] 1:08 PM CDT Height 167.6 cm (5' 6) 11/20/2020 1:08 PM CDT Body Mass Index [...] 10/19/2017, Additional history exists INFLUENZA VACCINE (#1) 2025 COLORECTAL SCREENING 12/31/2030 12/31/2020, 03/22/20 Colorectal Cancer Screening 12/31/2030 Insurance MEDICAID [place] MEDICARE PART A AND B Care Teams Poultry Pinner Relationship Specialty Start Date End Date Provider, Abstract NO ADDRESS ON FILE PCP - General 11/20/20
--- OUTSIDE RECORDS SUMMARY | 2024-12-22 15:31 | XMS_ITS | Clinical Summary ---
Author Organization [facility] Address [address] [place] [address] Care Team Providers Care Rope Rider Name Role Phone Zbigniew Marie MD Primary Care Provider [phone] Allergies Active Allergy Reactions Criticality Noted Date [...] on file Legal Sex Female 9:05 AM FRIT MAKER Gender Identity Not on file Sexual Orientation [...] 2:30 PM CDT Height 167.6 cm (5' 5.98) 09/10/2022 2:30 PM CD T Body Mass [...] Cancer Screening-Mammogram 06/11/2022 021 Influenza Vaccine (#1) 2025 04/24/2020, [address] [place] [address] [employer]PA [facility] IDPA [facility] [place] [address] Care Teams Rope Rider Relationship Specialty Start Date End Date Zbigniew Marie MD [address] [place] [id number] PCP - General Internal Medicine 07/30/22
--- OUTSIDE RECORDS SUMMARY | 2024-12-22 15:31 | XMS_ITS | Encounter Summary ---
Author Organization [facility] [employer] [facility] Address [address] [place] [phone] Phone Care Team Providers Care Band Saw Filer Name Role Phone Devika Cummins MD Primary Care Provider [phone] Encounter Details Date Type Department Care Team (Late st Contact Info) Description 04/24/2021 Office Communication [facility] [employer] [address] [address] Ben Resendiz DO [address] [place] [id number] Social History Tobacco Use Types Packs/Day [...] Anni Vasquez CMA - 04/24/2021 12:17 PM GARNISHER Please call pt about Ultrasound results are in media * Telephone Encounter - Brittany Sanders - 04/24/2021 11:25 AM CST pT called and asked if someone could call her and give her a update about her ultrasound. documented in this encounter Plan of Treatment Upcoming Encounters Date Type Department Care Team (Late st Contact Info) Description 12/27/2024 2:15 PM CDT Office Visit [facility] [address] [facility] [address] [place] [address] Ben Resendiz DO [address] [address] documented as of this encounter Visit Diagnoses Not on filedocumented in this encounter Care Teams Band Saw Filer Relationship Specialty Start Date End Date Devika Cummins MD [address] [place] [address] PCP - General Family Medicine 07/26/24 documented as of this encounter
--- OUTSIDE RECORDS SUMMARY | 2024-12-22 15:31 | XMS_ITS | Referral Summary ---
Author Organization [facility] Address [address] [place] [address] Care Team Providers Care Security Sales Consultant Name Role Phone Zbigniew Marie MD Primary Care Provider [phone] Allergies Active Allergy Reactions Criticality Noted Date [...] on file Legal Sex Female 9:05 AM DRIER HELPER Gender Identity Not on file Sexual Orientation [...] of Treatment Not on file Insurance [employer]PA [facility] [place] [address] IDPA [facility] MEDICARE [facility] MEDICARE Address: [address] [address] [place] [address] [place] [address] Care Teams Security Sales Consultant Relationship Specialty Start Date End Date Zbigniew Marie MD [address] [place] [phone] PCP - General Internal Medicine 07/30/22
--- OUTSIDE RECORDS SUMMARY | 2024-12-22 15:31 | XMS_ITS | Data Portability ---
Author Organization [place] - [facility] Field Dailies, Main Office Address [address] [place] [address] Care Team Providers Care Supervisor Evaporator Name Role Phone SHITAL BAUTISTA Primary Care Provider SHITAL BAUTISTA Referring Provider SHITAL BAUTISTA Primary Care Provider [phone] Assessment Encounter Date Assessment Date Assessment LastModified by Organization Details LastModified Time 06/23/2023 06/23/2023 This note is dictated and transcribed by [employer] Direct [employer]. Health Care Facilities Inspector variances may occur. Despite proofreading, typographical errors may occur. Occasional wrong-word or '[id number]' substitutions may have occurred due to the inherent limitations of voice recording. Read the chart carefully and recognize, using context, where substitutions have occurred. [email or web address] Not available 06/30/2023 12:16:42 08/27/2023 08/27/2023 Assessment: Ex-nicotine smoke: 1/2 ppd 3935-9751 = 13.5 pack years Mod ACO Severe [...] 05/25/2024 05/25/2024 Assessment: Ex-nicotine smoke: 06/16 ppd 0523-1929 = 13.5 pack years Mod ACO Severe [...] 308 pg/mL B12 03/21/22 411 pg/mL B12 12/12/23 276 pg/mL B12 08/19/23 692 pg/mL B12 [...] remain at 12-15 cmH2O. Keep EPR +1 full fashioned garment knitter. Keep ramp off. Keep humidifier level at [...] further management. Follow-up: 9 months, February 2025 [facility] Not available 05/25/2024 15:20:00 Plan of Treatment Reminders Order Date Submit Date Provider Last Modified By Organization Details Last Modified Time Details Appointments Follow Up 30 2024 01:00P Elena De Luna MD Not available Not available Not available Lab vitamin B12, serum 2023 025 [email or web address] [facility] (Lab), [address] [place], [address], 05/25/2024 15:18:05 vitamin B12, serum 2023 [email or web address] [place] [address] (Lab), [address] [place], [address], 05/11/2024 10:04:42 Referral None recorded. Procedures None recorded. Surgeries None recorded. Imaging XR, foot, 3 or more view [address] ([facility] Scheduling), [address] [facility], [place], [address], 07/27/2023 08:32:39 Medication Orders cyanocoba nusrat (vit B-12) 1,000 mcg tablet 2023 024 [facility], [address] [place] [address] , [address], [place], [place], [id number], 05/25/2024 15:18:17 albuterol sulfate HFA 90 mcg/actua tion aerosol inhaler 2023 024 [facility], [address] [place] [address] , [address], [place], [place], [id number], 05/25/2024 15:18:16 Advair HFA 230 mcg-21 mcg/actua tion aerosol inhaler 2023 024 [facility], [address] [place] [address] , [address], [place], [place], [id number], 05/25/2024 15:18:19 cyanocoba nusrat (vit B-12) 1,000 mcg tablet 2023 024 [facility], [address] [place] [address] , [address], [place], [place], [id number], 08/27/2023 14:28:47 albuterol sulfate HFA 90 mcg/actua tion aerosol inhaler 2023 024 [facility], [address] [place] [address] , [address], [place], [place], [id number], 08/27/2023 14:28:46 Symbicort 160 mcg-4.5 mcg/actua tion HFA aerosol inhaler [email or web address], [place], [place], [id number], 05/25/2024 15:11:44 Patient TargetsNo targets recorded. Patient Instructions Encounter Date Encounter Id Patient Instructions Last Modified By Organization Details Last Modified Time 08/19/2023 [id number] PT SX N/V APPEAR S TO BE EXACERBATED BY OZEMPIC. RECOMMEND TO TAKE ZOFRAN 4 MG SL EVERY 4-6 HRS ATC FOR THE NEXT 48 HRS POST HER OZEMPIC SHOT. F/U IN MTHS. [email or web address] Not available 08/19/2023 15:12:48 08/27/2023 [id number] complete PFT w/ post bronchodilator spirometry* [email or web address] Not available 05/18/2024 17:46:37 Reason for Referral None Reported. Results Created Date Observation Date Name Description Value Unit Range Abnormal Flag Note LastModifiedBy Organization Detail LastModifiedTime 07/17/19 24 04/06/2023 XR, foot, 3 or more view No observ ation record ed. [facility] () [address] [place], [address], 07/27/2023 08:32:39 10/25/19 25 10/12/2024 compl ete PFT w/ post [facility] hodil ator wu metry * No observ ation record ed. [facility] [address] [facility] [address], [place], [address], 10/24/2024 16:59:37 Result Notes None recorded. Problems Name Problem SNOMED Code Status Onset Date Resolution Date Notes Provider Name and Address Organization Details Recorded Time Intermitt ent palpitati ons 598412924 Active 2021 Not Available [facility] 3 15:09:42 Chronic obstructi ve pulmonary disease 68265455 Completed Not Available [facility] 3 08:49:39 Bruxism 731299118 Active Not Available [facility] 3 15:09:42 Asthma 162077212 Active Not Available [facility] 3 15:09:42 Moderate chronic obstructi ve pulmonary disease 575390411 Active Not Available [facility] 3 15:09:42 Vitamin D deficienc y 72799445 Active 2021 Not Available [facility] 3 15:09:42 Depressiv e disorder 64628374 Active Not Available [facility] 3 15:09:42 Hypertens nickolas disorder 95886044 Active Not Available [facility] 3 15:09:42 Osteoarth ritis 704561173 Active Not Available [facility] 3 15:09:42 Umbilical hernia 642224086 Active Not Available [facility] 3 15:09:42 Periodic limb movement disorder 737974479 Active Not Available [facility] 3 15:09:42 History of polyp of colon 453020908 Active Not Available [facility] 3 15:09:42 Hyperlipi demia 07855678 Active Not Available [facility] 3 15:09:42 Carpal tunnel syndrome 55217811 Active Not Available [facility] 3 15:09:42 Allergic rhinitis 47073501 Active 2021 Not Available [facility] 3 15:09:42 Vitamin B12 deficienc y (non anemic) 57332824 Active 2021 Not Available [facility] 3 15:09:42 Gastropar esis due to type 2 diabetes mellitus 652027192 Active 2022 Not Available [facility] 3 15:09:42 Oropharyn geal dysphagia 21636691 Active 2022 Not Available [facility] 3 15:09:42 Obstructi ve sleep apnea syndrome 83745448 Active Not Available [facility] 3 15:09:42 Closed fracture of phalanx of foot 36866617 Active Not Available [facility] 3 15:09:42 Anxiety 36587481 Active 2023 Luci rios, [facility] 4 14:21:07 Gout 21902184 Active 2023 Luci Chavez null, [facility] 4 14:22:14 Kidney disease 31541731 Active 2023 Luci Chavez null, [facility] 4 14:23:45 Obesity 258370342 Active 2023 Luci rios, [facility] 4 14:23:53 Right Achilles tendiniti s 59018334412 9102 Active 2023 Chema Rapp, DPElena [address] [facility], [facility] [address], [place], [address] , [facility] 14:43:50 Notes:Medical History: Depre ssion Hypogammaglobulinemia (IgG2) [...] EDWIN-BSO 1998 Some problems listed in Document: #[id number] could not be added to this patient's chart. Please review this document and add these problems to the patient's chart manually as needed. Problem Notes None recorded. Procedures Surgical History Date Name Laterality Status Provider Name and Address Organization Details Recorded Time Carpal tunnel surgery completed Not Available [facility] 08/13/2022 08:45:24 Revise ulnar nerve at elbow completed Not Available [facility] 08/13/2022 08:45:24 Endoscopy completed Not Available [facility] 0 08/13/2022 08:45:24 Colonoscopy completed Not Available [facility] 08/13/2022 08:45:24 Hernia Repair completed Not Available [facility] 08/13/2022 08:45:24 Hysterectomy completed Not Available [facility] 08/13/2022 08:45:24 nerve conduction study completed Not Available [facility] 08/13/2022 08:45:24 Imaging Results None recorded. Procedure Notes None recorded. Medical Equipment None Reported. Allergies Allergen ID Allergen Name Allergen Category Reaction Reaction Severity Criticality Documentation Date Start Date Code Code System Note Provider Name and Address Organization Details Recorded Time Product containin g penicilli n (product) medicatio n Not available Not available Not available 08/13/2022 26275 8001 SNOMED Not Available [facility] 3 08:54:27 26868 aspirin medicatio n Not available Not available Not available 08/13/2022 1191 RxNorm Not Available [facility] 3 08:54:27 Medications Name Sig Start Date [...] Not Available Not Available Not Available OneTouch Ultra Test strips USE TO CHECK BLOOD [...] No t Available ranitidine 150 mg tablet 10/01 completed Not Available Not [...] Available Not Available Vitals Date Recorded Body mass index (BMI) Body weight Provider Name and Address Organization Details Last Updated DateTime 06/23/2023 38.7 kg/m2 757658.17 g Luci Chavez [place] [employer] [facility] 06/23/2023 14:17:59 Date Recorded Body height Heart rate Respiratory rate Oxygen saturation Oxygen saturation in Arterial blood by Pulse oximetry Systolic And Diastolic Provider Name and Address Organization Details Last Updated DateTime 4 167.64 cm 91 /min 14 /min 98 % 98 % 114/68 mm[Hg] Tere Ramos OR [employer] [facility] 4 14:06:00 Date Recorded Body height Body mass index (BMI) Body weight Heart rate Respiratory rate Body temperature Oxygen saturation Oxygen saturation in Arterial blood by Pulse oximetry Systolic And Diastolic Provider Name and Address Organization Details Last Updated DateTime 4 167.64 cm 38.7 kg/m2 182425. 17 g 91 /min 14 /min 98.4 [degF] 98 % 98 % 114/68 mm[Hg] Adriana Tamir [place] [employer] [facility] 4 14:12:42 Date Recorded Body height Body mass index (BMI) Body weight Heart rate Oxygen saturation Oxygen saturation in Arterial blood by Pulse oximetry Systolic And Diastolic Provider Name and Address Organization Details Last Updated DateTime 4 167.64 cm 38.7 kg/m2 546155. 17 g 90 /min 99 % 99 % 112/70 mm[Hg] GRETA Salvador [facility] [email or web address] [facility] 4 14:20:27 Date Recorded Heart rate Oxygen saturation Oxygen saturation in Arterial blood by Pulse oximetry Heart rate Respiratory rate Provider Name and Address Organization Details Last Updated DateTime 4 99 /min 94 % 94 % 99 /min 15 /min Elver De Luna MD [address] [place] [address], [facility] [address], [place], [address], [place] [employer] [facility] 4 14:36:16 Date Recorded Body height Body mass index (BMI) Body weight Body temperature Systolic And Diastolic Provider Name and Address Organization Details Last Updated DateTime 08/27/2023 167.64 cm 38.4 kg/m2 327501. 98 g 98.3 [degF] 124/66 mm[Hg] Amaris Tobias MA [facility] [employer] [facility] 4 14:08:15 Date Recorded Oxygen saturation Oxygen saturation in Arterial blood by Pulse oximetry Heart rate Respiratory rate Provider Name and Address Organization Details Last Updated DateTime 05/25/2024 95 % 95 % 79 /min 14 /min Elver De Luna MD [address] [facility], [facility] [address], [place], [address], [facility] [employer] 4 15:05:47 Date Recorded Body height Body mass index (BMI) Body weight Body temperature Heart rate Systolic And Diastolic Provider Name and Address Organization Details Last Updated DateTime 167.64 cm 35.6 kg/m2 379519. 2 g 98.3 [degF] 79 /min 118/60 mm[Hg] Amaris Tobias MA [facility] [employer] [facility] 14:56:40 Social History Question Answer Notes LastModified by Organizat ion Details LastModified Time Tobacco Smoking Status Former Smoker quit 01/2022 Luci rios, [facility] [employer] [facility] 06/23/2023 13:58:54 Do You Have An Advance Directive? No [id number] Information not available 08/13/2022 What Is Your Level Of Caffeine Consumption? Moderate [id number] Information not available 08/13/2022 How Much Tobacco Do You Chew? None [id number] Information not available 08/13/2022 In The 14 Days Before Symptom Onset, Have You Had Close Contact With A Laboratory-confi rmed COVID-19 While That Case Was Ill? No Information not available 06/23/2023 In The 14 Days Before Symptom Onset, Have You Had Close Contact With A Person Who Is Under Investigation For COVID-19 While That Person Was Ill? No Information not available 06/23/2023 What Type Of Diet Are You Following? REGULAR [id number] Information not available 08/13/2022 Which Illicit Or Recreational Drugs Have You Used? None Information not available 06/23/2023 Do You Have An Electrostatic Air Filter? No Information not available 06/23/2023 Have There Been Any Changes To Your [...] Do You Have A Medical Power Of Route Contractor? No Information not available 06/23/2023 Do You Have Moisture Problems In Your Home? No Information not available 06/23/2023 What Was The Date Of Your Most Recent Tobacco Screening? 05/25/2024 Information not available 05/25/2024 Do You Have Any Pets? Yes Information not available 06/23/2023 What Is Your Relationship Status? Single [id number] Information not available 08/13/2022 Do You Use Your Seat Belt Or Car Seat Routinely? Yes Information not available 06/23/2023 Do You Have Smoke And Carbon Monoxide Detectors In Your Home? Yes Information not available 06/23/2023 At What Age Did You Start Smoking Tobacco? 11 Information not available 06/23/2023 Are You Passively Exposed To Smoke? No Information not available 06/23/2023 Are There Any Smokers In Your House? No Information not available 06/23/2023 How Much Tobacco Do You Smoke? No [email or web address] Information not available 05/28/2023 Do You Use Sunscreen Routinely? No Information not available 06/23/2023 How Many Years Have You Smoked Tobacco? 30 Information not available 06/23/2023 Have You Recently Traveled Abroad? No Information not available 06/23/2023 Do You Have Any Dietary Restrictions? No Information not available 06/23/2023 Sex: Unknown Functional Status Question Answer Note LastModified by Organizat ion Details LastModified Time Do you use any illicit or recreational drugs? No Information not available 06/23/2023 Do you or have you ever used any other forms of tobacco or nicotine? No Information not available 06/23/2023 What is your level of alcohol consumption? Occasional Information not available 06/23/2023 Do you or have you ever used smokeless tobacco? Never used smokeless tobacco [id number] Information not available 08/13/2022 Are you currently employed? No Information not available 05/25/2024 Have you been exposed to chemicals or toxins? No Not that aware of Information not available 05/25/2024 What is your occupation? disabled Information not available 06/23/2023 Do you or have you ever used e-cigarettes or vape? Never used electronic cigarettes Information not available 06/23/2023 What is your exercise level? Occasional [id number] Information not available 08/13/2022 Mental Status Question Answer Note LastModified by Organization D etails LastModified Time Do you feel stressed (tense, restless, nervous, or anxious, or unable to sleep at night)? [id number] Information not available 06/23/2023 Family History Relationship Description Onset Age of this Age Resolved Age Notes LastModified by Organization Details LastModified Time Unspecified Relation Mental disorder [id number] Not available 08/13/2022 08:45:27 Unspecified Relation Family [...] available 0 08/19/2023 14:19:50 Maternal Grandmother Asthma MIGRATION.258 [id number] Not available 08/13/2022 08:45:27 Maternal Grandfather Diabetes mellitus [id number].686 [id number] Not available 08/13/2022 08:45:27 Father Diabetes mellitus MIGRATION.557 [id number] Not available 08/13/2022 08:45:27 Brother Asthma MIGRATION.967 [id number] Not available 08/13/2022 08:45:27 Sister Asthma MIGRATION.256 [id number] Not available 08/13/2022 08:45:27 Mother Asthma MIGRATION.163 [id number] Not available 08/13/2022 08:45:27 Mother Diabetes mellitus Not available 2023 14:25:11 Mother Arthritis [email or web address] Not available 08/19/2023 14:19:50 Father Arthritis [email or web address] Not available 08/19/2023 14:19:50 Father Heart disease Not available 2023 14:26:54 Medical History Condition Response ARTHRITIS Y HEADACHES/MIGRAINES Y GI PROBLEMS Y KIDNEY DISEASE Y DIABETES, TYPE Y ALLERGIES/HAYFEVER Y LUNG DISEASE/DISORDER Y HYPERTENSION Y HIGH CHOLESTEROL / HYPERLIPIDEMIA Y OBESITY Y ANXIETY DISORDER Y BLOOD CLOTS Y GERD/NAUSEA Y PULMONARY DISEASE Y GOUT Y DEPRESSION (INCLUDING POST ) Y BOWEL PROBLEMS Y BACK / NECK PROBLEMS Y Gynecological HistoryNo gynecological history recorded. Obstetrics History GPAL:G 0 P 0 0 0 0 Past Encounters Encounter ID Performer Location Encounter Start Date Encounter Closed Date Diagnosis/Indication Diagnosis SNOMED-CT Code Diagnosis ICD10 Code Diagnosis Note [id number] _ATHN_MIGR ATION_1 _ATHENA_M IGRATION_ DEFAULT_1 _1 , 10/03/2020 00:00:00 10/03/2020 17:20:06 [id number] Anthony amaya MD S_[facility] Internal Med [facility] [address] , [facility] [address] [place] [address] 10/19/2020 00:00:00 10/19/2020 17:23:14 [id number] MD MERVIN [place]on_[facility] Internal Med [facility] [address] [place] , [facility] [address] [place] [address] 10/26/2020 00:00:00 10/26/2020 16:35:23 [id number] _ATHN_MIGR ATION_1 _ATHENA_M IGRATION_ DEFAULT_1 _1 , 10/31/2020 00:00:00 10/31/2020 14:41:44 [id number] Anthony amaya MD [facility] [facility] [address] [address] 11/23/2020 00:00:00 11/23/2020 17:08:20 [id number] _ATHN_MIGR ATION_1 _ATHENA_M IGRATION_ DEFAULT_1 _1 , 12/05/2020 00:00:00 12/05/2020 14:53:50 [id number] Elver De Luna MD Latha_[address] [address] 12/06/2020 00:00:00 12/06/2020 16:02:03 [id number] Santos tsai MD [facility] General Surgery [address] [place] [address], [address] [address] 12/11/2020 00:00:00 12/11/2020 13:55:59 [id number] Anthony amaya MD [facility] Internal Med [facility] [address] [facility] [address] [address] 02/01/2021 00:00:00 02/01/2021 20:54:22 [id number] Santos tsai MD [facility] General Surgery [address] [place], [place] [address], [address] [address] 03/28/2021 00:00:00 03/28/2021 15:17:18 [id number] MD MERVIN Coy_[address] [address] 04/23/2021 00:00:00 05/14/2021 14:24:18 [id number] Anthony amaya MD [facility] Internal Med [facility] [address] [facility] [address] [address] 05/14/2021 00:00:00 05/14/2021 16:37:57 [id number] Santos tsai MD [facility] General Surgery [address] [facility] [address] [address] 06/18/2021 00:00:00 06/18/2021 13:43:46 [id number] Elver De Luna MD [facility] Pulmonolo [facility] [address] [place] [address] 06/24/2021 00:00:00 06/24/2021 14:37:34 [id number] Santos tsai MD [facility] General Surgery [address] [facility] [address] [address] 07/09/2021 00:00:00 07/11/2021 12:59:45 [id number] Anthony amaya MD [facility] Internal Med [facility] [address] [facility] [address] [address] 07/30/2021 00:00:00 07/30/2021 21:13:54 [id number] Santos tsai MD [facility] General Surgery [address] [facility]., [address] [address] 08/13/2021 00:00:00 08/15/2021 14:46:26 [id number] Anthony amaya MD [facility] Internal Med [facility] [address] [facility] [address] [address] 08/19/2021 00:00:00 08/19/2021 16:18:56 [id number] Itzel Bush MD _HELADIO_Elena IGRATION_ DEFAULT_1 _1 , 09/26/2021 00:00:00 09/26/2021 16:22:32 [id number] MD MERVIN [place]_[facility] Internal Med [facility] [address] [facility] [address] [address] 10/15/2021 00:00:00 10/15/2021 17:17:06 [id number] Elver De Luna MD [address] [address] 03/25/2022 00:00:00 03/25/2022 15:20:54 [id number] Karen Salas MD [facility] General Surgery [address] [place] [address] 08/06/2022 00:00:00 08/06/2022 14:46:25 [id number] Karen Salas MD [facility] General Surgery [address] [place] [address] 03/18/2023 10:59:29 03/18/2023 11:28:51 Gastroparesis due to type 2 diabetes mellitus 897224022 E11.43 Nausea and vomiting 1693 1999 R11.2 TRY NON CRYSTALLIZ ED ANAHI [id number] Elver De Luna MD [address] [address] 05/28/2023 15:03:41 06/01/2023 09:09:47 Obstructive sleep apnea syndrome 34526467 G47.33 Moderate c hronic obstructive pulmonary disease 711785331 J44.9 Vitamin B1 2 deficiency (non anemic) 85413194 E53.8 [id number] Chema Rapp DPM [facility] Podiatry [address] [address] 06/23/2023 13:56:31 06/30/2023 13:48:37 Pain in right heel 5522054993 [id number] M79.671 x-rays reviewed 04/06/2023 update new x-raysoffl oading Achillesre commend Achilles heel sleevefoll ow-up in 3-4 weeks Right Achi lles tendinitis 9950279083 96381 M76.61 rice therapystr etching and icing instructio ns reviewed Ex-cigarette smoker 2810 01963 Z87.891 recommend discontinu e smokingsid e effects of smoking reviewed with the patient Morbid obesity 683073087 E66.01 recommend weight loss [id number] Chema Rapp DPM [facility] [place] [address] [place] [address] 0 07/21/2023 14:08:00 07/28/2023 14:48:27 Right Achilles tendinitis 9396853168 32821 M76.61 rice therapyrx physical therapystr etching and icing instructio ns reviewedfo llow up in 7 weekspt didnt get new xrays [id number] Karen Salas MD S_[facility] General Surgery [address] [place] [address] 1 08/19/2023 14:19:42 08/19/2023 14:45:04 Nausea and vomiting 53983764 R11.2 TAKE ZOFRAN Q 4 HRS X 48 HR POST OZEMPIC SHOT . Gastropare sis due to type 2 diabetes mellitus 353821268 E11.43 CONT REGLAN /ZOFRAN [id number] Elver De Luna MD [facility] Pulmonolo gy [place] [address] [place] [address] 0 08/27/2023 13:57:25 08/28/2023 09:06:40 Obstructive sleep apnea syndrome 93097699 G47.33 Moderate c hronic obstructive pulmonary disease 757828805 J44.9 Vitamin B1 2 deficiency (non anemic) 64200720 E53.8 [id number] Elver De Luna MD [facility] Pulmonolo [place] [address] 05/25/2024 14:34:42 05/25/2024 16:33:50 Obstructive sleep apnea syndrome 23545024 G47.33 Moderate c hronic obstructive pulmonary disease 738402227 J44.9 Vitamin B1 2 deficiency (non anemic) 10962212 E53.8 Health Concerns Section Related Observation LastModified by Organization Detai ls LastModified Time None Recorded Concern Status LastModified by Organization Details LastModified Time None Recorded Advance Directives Directive N: Payers Insurance Date Sequence Insurance Name Policy Number Policy Vu Covered Member ID Vu Member ID Guarantor Name 08/27/2023 1 [employer] (MEDICARE REPLACEMENT/AD VANTAGE - PPO) [id number] Yumi Amaya White [id number] Yumi A White 05/25/2024 2 [place] WHEN MEDICARE OR MEDICARE REPLACEMENT PRIMARY) Yumi A White [id number] Yumi A White 05/25/2024 2 [facility] (MEDICAID REPLACEMENT - HMO) [id number] Yumi Chaka White [id number] Yumi A White 05/25/2024 2 [place] [facility] OF PUBLIC AID Yumi A White [id number] Yumi A White 06/13/2024 1 [facility] (MEDICARE REPLACEMENT/AD VANTAGE - PPO) [id number] Yumi A White [id number] Yumi A White 04/19/2024 2 [facility] (MEDICAID REPLACEMENT - HMO) [id number] Yumi A White [id number] Yumi A White Notes Date Note Type Note Provider [...] is at rest does feel better. Chema Rapp DPM [address] [facility], [facility] [address], [place], [address], [facility] Field [employer]ies 06/30/2023 12:18:16 07/21/2023 text/html Your patient is [...] Rapp DPM [address], [place], [address], [facility] REMOTV 07/21/2023 14:29:58 08/19/2023 text/html YUMI WAS SEEN [...] TO 7. Karen Salas MD [address], [place], [address], Victoria Plumb 08/19/2023 15:13:47 08/27/2023 text/html Primary care/Ref erring provider: BEBO Rodriguez-CPatient is here to go over her asthma/COPD/HOLLAND management.Initial development of shortness of breath: 2015Duration of shortness of breath: 9 yearsCondition of shortness of breath: stableTiming of shortness of breath: night timeFrequency: up to 3 times a weekLimits activities: yesAggravating factors: walking, lifting heavy thingsAlleviating factors: restModified Medical Research [place] (mMRC) Dyspnea Scale - Grade 2Grade 0 [...] 80 mcg 01/2015 - 02/2019Advair 500/50 inhaler 2014Symbicort 160/4.5 09/2017 - 11/2019Incruse Ellipta 02/2018 - 02/2019Anoro Ellipta 62.5/25 mcg 09/2019 onlyStiolto Respimat 05/2018 - 10/2020Other symptoms:Productive cough: clearWheezing: noChest tightness: yesOrthopnea: noFrequent throat clearing or swallowing: noPalpitations: noHeartburn: noDysphagia: noEdema: noEnvironmental exposures:Nicotine smoke: / ppd 3627-2772 = 13.5 pack yearsPaint: noDye: noDust mites: [...] chance of dozing. Elver De Luna MD [address] [place] [address] [address], [place], [address], [facility] [employer]mer 08/27/2023 14:37:17 05/25/2024 text/html Primary care/Ref erring provider: Mary Mosquera, GOVERNMENT RELATIONS DIRECTOR-CPatient is here to go over her asthma/COPD/HOLLAND management.Initial development of shortness of breath: 2014Duration of shortness of breath: 9 yearsCondition of shortness of breath: stableTiming of shortness of breath: night timeFrequency: up to 3 times a weekLimits activities: yesAggravating factors: walking, lifting heavy thingsAlleviating factors: restModified [employer] [place] (mMRC) Dyspnea Scale - Grade 2Grade 0 [...] mcg 01/2015 - 02/2019Advair diskus 500/50 inhaler 2014Symbicort HFA 160/4.5 mcg 2 puffs BID ; dvair HFA 230/21 mcg 2 puffs BID since 09/2023 Incruse Ellipta 02/2018 - 02/2019Anoro Ellipta 62.5/25 mcg 09/2019 onlyStiolto Respimat 05/2018 - 10/2020Other symptoms:Productive cough: clearWheezing: noChest tightness: yesOrthopnea: noFrequent throat clearing or swallowing: noPalpitations: noHeartburn: noDysphagia: noEdema: noEnvironmental exposures:Nicotine smoke: 1/2 ppd 1594-1520 = 13.5 pack yearsPaint: noDye: noDust mites: [...] chance of dozing. Elver De Luna MD [address] [address], [place], [address], [place] [facility] 05/25/2024 15:23:07 OBGyn Episode No OBEpisode recorded.
[2024-12-22 16:13] LABS: Hematocrit 41.5 % (37.0-47.0); Hemoglobin 10.9 g/dL (12.0-15.0); Immature Platelet Fraction Pct 13.4 % (0.9-11.2); Mean Corpuscular HGB Conc 26.3 g/dl (32-36); Mean Corpuscular Hemoglobin 18.6 pg (26-34); Mean Corpuscular Volume 70.9 fl (80-100); Platelet Count Result 158 k/mm3 (150-375); Red Blood Count 5.85 M/mm3 (4.2-5.4); White Blood Count 9.0 K/mm3 (4.5-10.0)
[2024-12-22 16:33] LABS: Albumin Level 4.9 g/dL (3.5-5.1); Anion Gap 15 mmol/L (4-12); Blood Urea Nitrogen 17 mg/dL (7-17); Calcium 9.9 mg/dL (8.4-10.2); Carbon Dioxide 27 mmol/L (22-30); Chloride 100 mmol/L (98-107); Estimated Glomerular Filt Rate 40; Glucose 134 mg/dL (65-110); Magnesium 1.8 mg/dL (1.6-2.3); Potassium 4.2 mmol/L (3.4-5.0); Sodium 142 mmol/L (137-145)
[2024-12-22 16:34] LABS: Iron 34 ug/dL (37-170)
[2024-12-22 16:46] LABS: Parathyroid Intact 16.9 pg/mL (14.5-75.2)
[2024-12-22 16:57] LABS: Hemoglobin A1C 5.7 % (<5.7)
[2024-12-22 17:15] LABS: Ferritin 6.40 ng/mL (6.24-137)
[2024-12-22 17:43] LABS: MALB Creatinine Ratio 67.3 mg/g (0-30)
[2024-12-22 17:56] LABS: Total Protein Urine Random 16 mg/dL; Ur Ttl Prot Creatinine Ratio 0.23 mg/mg (0-0.20)
[2024-12-22 19:10] LABS: Percent Iron Saturation 5 % (20-50)
[2024-12-23 12:08] LABS: eGFR 45 (>59)
== END 2024-12-22 15:27 | disposition home or self-care (01) ==
PROVIDERS: PCP Emergency Medicine; Visit Provider Internal Medicine Nephrology
DX: E11.22 Type 2 diabetes mellitus with diabetic chronic kidney disease (principal); I12.9 Hypertensive chronic kidney disease with stage 1 through stage 4 chronic kidney disease, or unspecified chronic kidney disease; Z86.2 Personal history of diseases of the blood and blood-forming organs and certain disorders involving the immune mechanism; N18.30 Chronic kidney disease, stage 3 unspecified; E24.8 Other Cushing's syndrome; E78.00 Pure hypercholesterolemia, unspecified; M10.00 Idiopathic gout, unspecified site; R80.1 Persistent proteinuria, unspecified
CPT/HCPCS: 36415; 80069; 82043; 82570; 82610; 82728; 83036; 83540; 83550; 83735; 83970; 84156; 85027; 85055

== ENCOUNTER 2025-06-12 14:21 | Outpatient (CLI) | payer MEDICARE, MEDICAID, SELFPAY ==
--- OUTSIDE RECORDS SUMMARY | 2025-06-12 14:38 | XMS_ITS | Clinical Summary ---
Author Organization [facility] Genoveva vance [facility] Address [address] [place] [address] Care Team Providers Care Clinical Transplant Coordinator Name Role Phone Provider, Abstract Primary Care [...] 0 Active fluticasone propionate (FLONASE) 50 mcg/spray Jennings, Suspension nasal inhaler Administer in each nostril. [...] 03/22/20 Colorectal Cancer Screening 12/31/2030 Insurance MEDICAID [place] MEDICARE PART A AND B Care Teams Clinical Transplant Coordinator Relationship Specialty Start Date End Date Provider, Abstract NO ADDRESS ON FILE PCP - General 11/20/20
--- OUTSIDE RECORDS SUMMARY | 2025-06-12 14:38 | XMS_ITS | Clinical Summary ---
Author Organization [facility] Address [address] [place] [address] Care Team Providers Care Labor Mediator Name Role Phone Devika Cummins MD Primary Care Provider [phone] Source Comments [facility],non-owned Affiliates and Associated Physician Practices is amultiple site organization consisting of ambulatory clinics and hospital sitesin [place], [place], [place] and [place]. This disclosure is being madepursuant to the Care Everywhere program and may not contain all information available regarding this patient. 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 Gender Identity Not on file Sexual [...] Care Team (Late st Contact Info) Description 09/19/2025 9:40 AM CDT Office Visit [facility] - Endocrinology [address] [place] [address], [place] [address] Sohail Blount MD [address] [place] [address] [place] [address] Health Maintenance Due Date Last [...] 2 - PCV) 1996 PAP SMEAR 1998 DEPRESSION SCREENING 06/15/2024 MEDICARE AWV CALENDAR YEAR 2024 COVID-19 VACCINE (1 - 2024-2 6 season) 2025 INFLUENZA VACCINE (#1) 2025 ZOSTER VACCINE (1 of 2) 2027 [...] patient's age to complete this topic Insurance [facility] MEDICARE ADV [facility] MEDICAID Care Teams Labor Mediator Relationship Specialty [place] [address] [place] [address] [place] [address] PCP - General Emergency Medicine 01/04/24
--- OUTSIDE RECORDS SUMMARY | 2025-06-12 14:38 | XMS_ITS | Clinical Summary ---
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 Gender Identity Not on file Sexual Orientation [...] Influenza Vaccine (#1) 2025 04/24/2020, 2018 Insurance IDPA [employer] [facility] [place] UHC MEDICARE ADVANTAGE [facility] MEDICARE ADVANTAGE Care Teams Meters Superintendent Relationship Specialty Start Date End Date Zbigniew Marie MD [address] [place] [address] PCP - General Internal Medicine 07/30/22 Devika Cummins MD [address] [place] [address] Referring Physician Emergency Medicine 02/08/25 Alejandro Paulino MD [address] [place] [address] Referring Physician Neurology 02/08/25
--- OUTSIDE RECORDS SUMMARY | 2025-06-12 14:38 | XMS_ITS | Encounter Summary ---
Author Organization [facility] Address [facility] [place] [address] Care Team Providers Care Automotive Manager Name Role Phone Devika Cummins MD Primary Care Provider [phone] Encounter Details Date Type Department Care Team (Latest Contact Info) Description 02/06/2025 [employer] Message Enc [facility] [place] [address] [id number] [place], [facility] Provider Pain Management Referral Social History Tobacco Use Types Packs/Day Years Used Date Smoking Tobacco: Former Cigarettes 0.3 15 Q uit: 01/27/2023 Smokeless Tobacco: Never Comments:Situation smoker Alcohol Use Standard Drinks/Week Comments Never 0 (1 standard drink = 0.6 oz pur e alcohol) Comments Unknown Sex and Gender Information Value Date Recorded Sex Assigned at Female 01/27/2025 12:33 PM CDT Legal Sex Female 12:31 PM CDT Gender Identity Not on file Sexual Orientation Not on file documented as of this encounter Plan of Treatment Upcoming Encounters Date Type Department Care Team (Late st Contact Info) Description 08/08/2025 1:40 PM NURSING EXECUTIVE Office Visit [facility] - [address], [address] [place] [id number] Alejandro Paluino MD [address] [place] [address] [place] [address] documented as of this encounter Visit Diagnoses Not on filedocumented in this encounter Care Teams Automotive Manager Relationship Specialty Start Date End Date Devika Cummins MD [address] [place] [phone] PCP - General EMERGENCY MEDICINE 05/17/24 documented as of this encounter
--- OUTSIDE RECORDS SUMMARY | 2025-06-12 14:38 | XMS_ITS | Encounter Summary ---
Author Organization [facility] Address [facility] [place] [address] Care Team Providers Care Fixed Route Operator Name Role Phone Devika Cummins MD Primary Care Provider [phone] Encounter Details Date Type Department Care Team (Late Contact Info) Description 04/07/2025 MyChart Message Enc [address], [address] [place] [phone] Alejandro Paulino MD [address] [place] [address] Question Social History Tobacco Use Types Packs/Day Years [...] Encounters Date Type Department Care Team (Late Contact Info) Description 08/08/2025 1:40 PM SENIOR MAJOR GIFTS OFFICER Office [address] [place] [address] Alejandro Paulino MD [address] [place] [address] documented as of this encounter Visit Diagnoses Not on filedocumented in this encounter Care Teams Fixed Route Operator Relationship Specialty [place] [address] [place] [address] PCP - General EMERGENCY MEDICINE 05/17/24 documented as of this encounter
--- OUTSIDE RECORDS SUMMARY | 2025-06-12 14:38 | XMS_ITS | Clinical Summary ---
Author Organization [facility] Address [address] [address] Care Team Providers Care License And Permit Specialist Name Role Phone Devika Cummins MD Primary Care Provider [phone] Allergies Active Allergy Reactions Criticality Noted Date [...] labs are drawn. 1 tablet 06/18/2021 Active ferrous sulfate 325 (65 Fe) MG tablet Take 1 tablet (325 mg total) by mouth 1 (one) time each day 90 tablet 1 12/27/2024 Active losartan (COZAAR) 50 MG tablet Take 1 tablet (50 mg total) by mouth every night 90 tablet 1 01/18/2025 Active chlorthalidone 25 MG tablet Take 0.5 tablets (12.5 mg total) by mouth 1 (one) time each day in the morning 45 tablet 1 02/15/2025 Active Social History Tobacco Use Types Packs/Day [...] Sign Reading Time Taken Comments Blood Pressure 130/70 12/27/2024 2:17 PM CDT Pulse 74 12/27/2024 2:17 PM CDT Temperature 36.1 C (97 F) 12/27/2024 2:17 PM CDT Respiratory Rate 18 12/27/2024 2:17 PM CDT Oxygen Saturation 99% 12/27/2024 2:17 PM CDT Inhaled Oxygen Concentration - - Weight 107 kg (235 lb) 12/27/2024 2:17 PM CDT Height 167.6 cm (5' 6) 06/18/2021 2:57 PM HAND BOX FOLDER Body Mass Index 37.93 06/18/2021 2:57 PM HAND BOX FOLDER Plan of Treatment Upcoming Encounters Date Type Department Care Team (Late st Contact Info) Description 07/04/2025 1:00 PM HAND BOX FOLDER Office [facility], [facility] [address] [facility] [address] [place] [address] Ben Resendiz DO [address] [facility] [address] [place] [address] Health Maintenance Due Date Last [...] Influenza Vaccine (#1) 2025 Insurance Medicaid [place] [facility] Medicare Care Teams License And Permit Specialist Relationship Specialty Start Date End Date Devika Cummins MD [address] [place] [address] PCP - General Family Medicine 07/26/24
--- OUTSIDE RECORDS SUMMARY | 2025-06-12 14:38 | XMS_ITS | Clinical Summary ---
Author Organization [facility] Address [address] [place] [address] Care Team Providers Care Clinical Review Nurse Name Role Phone Devika Cummins MD Primary Care Provider [phone] Allergies Active Allergy Reactions Criticality Noted Date Comments Aspirin Hives,Itching,Other (see comment),Swelling,Throat swelling High 12/11/2016 Penicillins Hives,Itching Medium 12/11/2016 Sore throat Sore throat Sore throat Medications Estradiol Powder Act nickolas chlorthalidone (HYGROTEN) 25 MG tablet Take 0.5 tablets (12.5 mg total) by mouth. 08/25/19 25 Active clonazePAM (KLONOPIN) 0.5 MG disintegrating tablet Take 1 tablet (0.5 mg total) by mouth. Active colchicine 0.6 MG tablet 1 tablet (0.6 mg total). Active dapagliflozin (FARXIGA) 10 MG tablet 1 tablet (10 mg total). Active doxycycline hyclate (VIBRAMYCIN) 100 MG capsule 1 capsule (100 mg total). 08/01/19 25 Active vitamin D2, ergocalciferol, (DRISDOL) 1.25 mg capsule Take 1 capsule (1.25 mg total) by mouth. Active ezetimibe (ZETIA) 10 MG tablet 1 tablet (10 mg total). Active fenofibrate (TRICOR) 145 MG tablet 1 tablet (145 mg total). 09/20/19 25 Active ADVAIR HFA 230-21 MCG/ACT inhaler 07/28/19 25 Active gabapentin (NEURONTIN) 300 MG capsule 2 (two) times daily. Active glimepiride (AMARYL) 4 MG tablet glimepiride 4 mg tablet Active ONETOUCH ULTRA TEST test strip 07/28/19 25 Active lamoTRIgine (LAMICTAL) 200 MG tablet Take 1 tablet (200 mg total) by mouth 2 (two) times daily. Active COZAAR 100 MG tablet Cozaar 100 mg tablet Active lurasidone (LATUDA) 60 MG tablet Take 1 tablet (60 mg total) by mouth daily. Active metFORMIN (GLUCOPHAGE) 1000 MG tablet 09/20/19 25 Active metoclopramide (REGLAN) 10 MG tablet 07/07/19 25 Active montelukast (SINGULAIR) 10 MG tablet 09/20/19 25 Active ondansetron (ZOFRAN) 4 MG tablet 08/10/19 25 Active oxybutynin (DITROPAN) 5 MG tablet 09/20/19 25 Active pantoprazole EC (PROTONIX) 40 MG tablet 09/20/19 25 Active sertraline (ZOLOFT) 100 MG tablet Take 1 tablet (100 mg total) by mouth daily. Active JANUVIA 100 MG tablet Januvia 100 mg tablet Active traZODone (DESYREL) 100 MG tablet trazodone 100 mg tablet Active cyclobenzaprine (FLEXERIL) 10 MG tabletIndications: Thoracic myelopathy,Lumbosa cral radiculopathy Take 0.5 tablets (5 mg total) by mouth 2 (two) times daily as needed for Muscle Spasms. 30 tablet 4 11/29/19 25 Active Active Problems Problem Noted Date Diagnosed Date COPD (chronic obstructive pulmonary disease) 11/2024 Choreiform movements 07/30/2022 Chronic bilateral low back pain with sciatica Iron deficiency anemia 11/20/2020 Palpitations 11/16/2020 Premature atrial contraction 11/16/2020 PVCs (premature ventricular contractions) 2020 Shortness of breath 11/16/2020 Supraventricular tachycardia 11/16/2020 Wheezing 11/16/2020 Bipolar disorder 07/11/2019 Diabetes 07/11/2019 Gastroesophageal reflux disease 07/11/2019 Hyperlipidemia 07/11/2019 Morbid obesity 07/11/2019 Primary hypertension 07/11/2019 Sleep apnea 07/11/2019 Smoker 07/11/2019 Resolved Problems Problem Noted Date Diagnosed Date Resolved Date Encounter for preprocedural cardiovascular examination 07/11/2019 10/24/2024 Encounters Date Type Department Care Team Description 05/15/2025 Travel 04/16/2025 [facility] [address] [facility] [address] [place] [phone] Alejandro Paulino MD MRI PEL WWO CON 04/14/2025 [facility] [address] [place] [phone] Alejandro Paulino MD Physical therapy 04/09/2025 [facility] [address] [place] [address] Alejandro Paulino MD My fingers both hands. 04/07/2025 [facility] [address] [place] [phone] Alejandro Paulino MD Question 04/05/2025 1:00 PM CDT - 04/05/2025 11:59 PM CDT Hospital Encounter [facility] [place] [address] [place] [address] Alejandro Paulino MD Discharge Disposition: Home or Self Care (Routine Discharge) 04/05/2025 Travel from Last 3 Months Family History Medical History Relation Comments Asthma Brother Arthritis Father Diabetes Father Heart Disease Father Kidney Disease Father Depression Maternal Aunt Mental Health Maternal Aunt COPD Maternal Grandfather Depression Maternal Grandfather Diabetes Maternal Grandfather Hypertension Maternal Grandfather Kidney Disease Maternal Grandfather Mental Health Maternal Grandfather Asthma Maternal Grandmother Stroke Maternal Grandmother Depression Mother Diabetes Mother Mental Health Mother Arthritis Paternal Grandmother Cancer Paternal Grandmother Relation Status Comments Brother Alive Father Alive Maternal Aunt Alive Maternal Grandfather Alive Maternal Grandmother Alive Mother Alive Paternal Grandmother Alive Social History Tobacco Use Types Packs/Day Years Used Date Smoking Tobacco: Former Cigarettes 0.3 15 Q uit: 01/27/2023 Smokeless Tobacco: Never Tobacco Cessation:Counseling Given: No Comments:Situation smoker Alcohol Use Standard Drinks/Week Comments Never 0 (1 standard drink = 0.6 oz pur e alcohol) Comments Unknown Sex and Gender Information Value Date Recorded Sex Assigned at Female 01/27/2025 12:33 PM CDT Legal Sex Female 12:31 PM CDT Gender Identity Not on file Sexual Orientation Not on file Last Filed Vital Signs Vital Sign Reading Time Taken Comments Blood Pressure 129/75 10/18/2024 11:12 AM CDT Pulse 72 10/18/2024 11:12 AM CDT Temperature 36.4 C (97.6 F) 10/18/2024 11:12 AM CDT Respiratory Rate - - Oxygen Saturation 96% 10/18/2024 11:12 AM CDT Inhaled Oxygen Concentration - - Weight 103 kg (227 lb) 10/18/2024 11:12 AM CDT Height 167.6 cm (5' 6) 10/18/2024 11:12 AM CDT Body Mass Index 36.64 10/18/2024 11:12 AM CDT Plan of Treatment Upcoming Encounters Date Type Department Care Team (Late st Contact Info) Description 08/08/2025 1:40 PM [facility] Office Visit [facility] - [address] [place] [phone] Alejandro Paulino MD [address] [place] [address] Health Maintenance Due Date Last Done Comments Colorectal Cancer Screening Colonoscopy (10 Years) 1977 Kidney Health Evaluation 1977 Hemoglobin A1C 1977 Lipid Panel 1977 Annual Physical 1980 Diabetes: Retinopathy Eye Exam 1995 Hepatitis C 1995 Hepatitis B Vaccines (1 of 3 - 19+ 3-dose series) 1996 Pneumococcal Vaccine: Pediatrics (0 to 5 Years) and At-Risk Patients (6 to 49 Years) (1 of 2 - PCV) 1996 Mammogram Screening 2017 DTaP, Tdap and Td Vaccines ( 1 - Tdap) 07/17/2019 07/16/2019 PHQ-2 (Physician [place]) 06/15/2024 COVID-19 Vaccine (1 - 2024-2 6 season) 2025 Influenza Adult (#1) 2025 04/24/2020, 05/19/2019 Hepatitis A Vaccines Aged Out No long er eligible based on patient's age to complete this topic Meningococcal B Vaccine Aged Out No l onger eligible based on patient's age to complete this topic Meningococcal Vaccine Aged Out No william josephine eligible based on patient's age to complete this topic RSV Immunizations Under 20 Months Aged Out No longer eligible b ased on patient's age to complete this topic Procedures Procedure Name Priority Date/Time Associated Diagnosis Comments MRI PEL WWO CON Routine 04/05/2025 2:24 PM CDT Lumbosacral plexopathy from Last 3 Months Results * MRI PEL WWO CON (04/05/2025 2:24 PM CDT) Anatomical Region Laterality Modality Pelvis Magnetic Resonan ce 04/16/2025 12:1 8 PM [facility] Impressions 04/16/2025 1:59 PM [facility] IMPRESSION: 1. The sacral neural foramina appear normally patent. The sacral nerve roots appear intact with no distinct abnormal signal. 2. Incidentally noted hepatosplenomegaly. 3. A 3.5 cm lobular T2 hyperintense masslike region is seen within the liver, incompletely assessed on this exam. Further evaluation with contrast-enhanced liver protocol MRI of the abdomen is recommended. Referred By: ALEJANDRO PAULINO Interpreted By: Jhonny Hein MD, 04/16/2025 12:18 PM Narrative 04/16/2025 1:59 PM [facility]LE [facility] [address] [address] Examination: MRI PEL WWO CON Exam time: 04/05/2025 1:28 PM Clinical history: Back pain and bilateral thigh pain. Lumbosacral plexopathy. Comparison: MRI lumbar spine 01/27/2025. Technique: Multiplanar, multisequence MR images of the pelvis were obtained before and after administration of 20 mL of Dotarem. Findings: There is mild multilevel disc degenerative changes of the included lumbar spine, discussed in detail on separately reported MRI of the lumbar spine performed January this year. The sacral neural foramina appear normally patent. The sacral nerve roots appear intact with no distinct abnormal signal. The visualized portions of the proximal bilateral sciatic nerves appear normal. The uterus is surgically absent. No distinct adnexal mass is identified. No free fluid is seen within the pelvis. No pelvic lymphadenopathy noted. Urinary bladder appears unremarkable. No abnormal marrow signal is identified. Pelvic musculature appears intact. Incidentally noted enlarged liver and spleen, partially included on this exam. Additionally, a lobular T2 hyperintense masslike region is identified within the liver measuring 3.5 cm (series 2 image 27), incompletely assessed on this exam. Procedure Note Jhonny Hein MD - 04/16/[address] [address] Examination: MRI PEL WWO CON Exam time: 04/05/2025 1:28 PM Clinical history: Back pain and bilateral thigh pain. Lumbosacralplexopathy. Comparison: MRI lumbar spine 01/27/2025. Technique: Multiplanar, multisequence MR images of the pelvis wereobtained before and after administration of 20 mL of Dotarem. Findings: There is mild multilevel disc degenerative changes of the included lumbarspine, discussed in detail on separately reported MRI of the lumbar spineperformed January this year. The sacral neural foramina appear normally patent. The sacral nerve rootsappear intact with no distinct abnormal signal. The visualized portions ofthe proximal bilateral sciatic nerves appear normal. The uterus issurgically absent. No distinct adnexal mass is identified. No free fluidis seen within the pelvis. No pelvic lymphadenopathy noted. Urinarybladder appears unremarkable. No abnormal marrow signal is identified.Pelvic musculature appears intact. Incidentally noted enlarged liver and spleen, partially included on thisexam. Additionally, a lobular T2 hyperintense masslike region isidentified within the liver measuring 3.5 cm (series 2 image 27),incompletely assessed on this exam. IMPRESSION: 1. The sacral neural foramina appear normally patent. The sacral nerveroots appear intact with no distinct abnormal signal. 2. Incidentally noted hepatosplenomegaly. 3. A 3.5 cm lobular T2 hyperintense masslike region is seen within theliver, incompletely assessed on this exam. Further evaluation withcontrast-enhanced liver protocol MRI of the abdomen is recommended. Referred By: ALEJANDRO PAULINO Interpreted By: Jhonny Hein MD, 04/16/2025 12:18 PM us Alejandro Paulino MD MRI Final Res ult from Last 3 Months Insurance MEDICAID Member Subscriber Plan / Payer (Ef fective 2023-Present) Name:Madison Martinez Relation to Subscriber:Self Name:Madison Martinez Payer ID:Not on file Group ID:Not on file Type:Not on file [address] [employer] Care Teams Clinical Review Nurse Relationship Specialty Start Date End Date Devika Cummins MD [address] [place] [address] PCP - General EMERGENCY MEDICINE 05/17/24
[2025-06-12 14:57] LABS: Hematocrit 46.2 % (37.0-47.0); Hemoglobin 13.9 g/dL (12.0-15.0); Immature Platelet Fraction Pct 10.1 % (0.9-11.2); Mean Corpuscular HGB Conc 30.1 g/dl (32-36); Mean Corpuscular Hemoglobin 24.7 pg (26-34); Mean Corpuscular Volume 82.2 fl (80-100); Platelet Count Result 145 k/mm3 (150-375); Red Blood Count 5.62 M/mm3 (4.2-5.4); White Blood Count 9.6 K/mm3 (4.5-10.0)
[2025-06-12 15:09] LABS: Albumin Level 4.9 g/dL (3.5-5.1); Anion Gap 10 mmol/L (4-12); Blood Urea Nitrogen 40 mg/dL (7-17); Calcium 9.5 mg/dL (8.4-10.2); Carbon Dioxide 23 mmol/L (22-30); Chloride 109 mmol/L (98-107); Estimated Glomerular Filt Rate 14; Glucose 139 mg/dL (65-110); Magnesium 1.8 mg/dL (1.6-2.3); Potassium 5.0 mmol/L (3.4-5.0); Sodium 142 mmol/L (137-145)
[2025-06-12 15:30] LABS: Total Protein Urine Random 26 mg/dL; Ur Ttl Prot Creatinine Ratio 0.22 mg/mg (0-0.20)
[2025-06-12 15:34] LABS: MALB Creatinine Ratio 72.4 mg/g (0-30)
[2025-06-12 16:14] LABS: Iron 47 ug/dL (37-170)
[2025-06-12 16:23] LABS: Percent Iron Saturation 8 % (20-50)
[2025-06-12 16:57] LABS: Ferritin 11.10 ng/mL (6.24-137)
[2025-06-12 17:58] LABS: Hemoglobin A1C 6.3 % (<5.7)
[2025-06-13 07:09] LABS: eGFR 32 (>59)
== END 2025-06-12 14:22 | disposition home or self-care (01) ==
PROVIDERS: PCP Emergency Medicine; Visit Provider Internal Medicine Nephrology
DX: E78.00 Pure hypercholesterolemia, unspecified (principal); R80.1 Persistent proteinuria, unspecified; I12.9 Hypertensive chronic kidney disease with stage 1 through stage 4 chronic kidney disease, or unspecified chronic kidney disease; N18.30 Chronic kidney disease, stage 3 unspecified; E24.8 Other Cushing's syndrome; E11.22 Type 2 diabetes mellitus with diabetic chronic kidney disease; M10.00 Idiopathic gout, unspecified site; Z86.2 Personal history of diseases of the blood and blood-forming organs and certain disorders involving the immune mechanism
CPT/HCPCS: 36415; 80069; 82043; 82306; 82570; 82610; 82728; 83036; 83540; 83550; 83735; 83970; 84156; 85027; 85055